=== PATIENT | female | born 1935 | race Caucasian/White ===

== ENCOUNTER 2019-04-29 12:34 | Inpatient (IN) | payer MEDICARE, BC, MEDICAID ==
[2019-04-29] MEDS ORDERED: Albuterol/Ipratropium 3.0-0.5 MG/3 ML Neb Soln NEB PRN (12:59)
--- NOTE | 2019-04-29 13:05 | PCM.HP ---
H&P History of Present Illness - General Date of Service: 04/29/19 Admit Problem/Dx: Admission Diagnosis/Problem Admission Diagnosis/Problem COPD with acute lower respiratory infection Source of Information: Patient, EMS Notes Reviewed History Limitations: Reports: No Limitations - History of Present Illness Initial Comments - Free Text/Narative: Patient has been seen a couple times over the last few weeks for URI. Little improvement noted, tried oral antibiotics, steroids and nebulizer treatments with little improvement. Patient now has nausea and vomiting. Denies fever, has fatigue, has a cough and denies ches pain. Patient has been more short of breath over the last week. Onset of Symptoms: Reports: Gradual Duration of Symptoms: Reports: Getting Worse Improves with: Reports: Immobilization Worsens with: Reports: Movement Associated Symptoms: Reports: cough w sputum, Loss of Appetite, Nausea/Vomiting , Shortness of Breath, Weakness - Related Data Allergies/Adverse Reactions: Allergies Allergy/AdvReac Type Severity Reaction Status Date / Time aspirin Allergy Bleeding Verified 05/04/16 18:58 Home Medications: Home Meds Atenolol [Tenormin] 1 tab PO DAILY 11/05/14 [History] Diltiazem [Cardizem CD] 1 tab PO DAILY 11/05/14 [History] Hydrocodone/Acetaminophen [Hydrocodon-Acetaminophen 5-325] 1 - 2 tab PO TID PRN 11/05/14 [History] Lisinopril 10 mg PO DAILY 11/05/14 [History] Lovastatin 40 mg PO BEDTIME 11/05/14 [History] Folic Acid 1 mg PO DAILY 05/04/16 [History] Metoclopramide [Reglan] 5 mg PO QIDACANDBED 05/04/16 [History] Mv-Mn/FA/Vit K/Lycop/Lut/Zeaxa [Ocuvite Eye + Multi Tablet] 1 cap PO DAILY 05/04 [History] Triamterene/Hydrochlorothiazid [Triamterene-HCTZ 37.5-25 MG] 1 tab PO DAILY [History] Calcium Citrate/Vitamin D3 [Calcium Citrate - Vit D3 Tab] 2 tab PO DAILY [History] Cyanocobalamin (Vitamin B12) [Cyanocobalamin] 1,000 mcg IM Q30D 04/29/19 [ History] Docusate Sodium [Colace] 100 mg PO DAILY 04/29/19 [History] Furosemide [Lasix] 40 mg PO DAILY PRN 04/29/19 [History] Mirabegron [Myrbetriq] 25 mg PO DAILY 04/29/19 [History] Ranitidine [Zantac] 150 mg PO BID 04/29/19 [History] Sertraline [Zoloft] 25 mg PO DAILY 04/29/19 [History] Past Medical History HEENT History: Reports: Allergic Rhinitis, Impaired Vision, Other (See Below) Other HEENT History: Glasses Cardiovascular History: Reports: Cardiomyopathy, Heart Murmur, High Cholesterol , Hypertension, Pulmonary Hypertension, Other (See Below) Other Cardiovascular History: Moderate cardiomegaly, aortic valve stenosis and mitral valve insufficiency by clinical exam, fatty liver by CT scan Respiratory History: Reports: COPD, Pulmonary Fibrosis, Other (See Below) Other Respiratory History: COPD and pulmonary fibrosis by chest x-ray Gastrointestinal History: Reports: Cholelithiasis, Chronic Constipation, Colon Polyp, Diverticulosis, Gastritis, GERD, GI Bleed, Hiatal Hernia, PUD, Other ( See Below) Other Gastrointestinal History: History of recurrent diverticulitis, tubular adenoma of the ascending colon on 04/18/12, upper GI bleed in the secondary to NSAIDs, cholecystectomy as below Genitourinary History: Reports: UTI, 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: Dysfunctional Uterine Bleeding, Fibroids Musculoskeletal History: Reports: Arthritis, Back Pain, Chronic, Neck Pain, Chronic, Osteoarthritis, Osteoporosis, RA, Other (See Below) Other Musculoskeletal History: Severe scoliosis of the lumbar spine Psychiatric History: Reports: Addiction, Anxiety, Depression Endocrine/Metabolic History: Reports: Osteoporosis Hematologic History: Reports: Anemia, Blood Transfusion(s) Immunologic History: Reports: None Oncologic (Cancer) History: Reports: None Dermatologic History: Reports: None - Infectious Disease History Infectious Disease History: Reports: Chicken Pox, Shingles - Past Surgical History HEENT Surgical History: Reports: Oral Surgery GI Surgical History: Reports: Cholecystectomy, Colonoscopy, EGD, Other (See Below) Female Surgical History: Reports: Hysterectomy, Other (See Below) Musculoskeletal Surgical History: Reports: Knee Replacement - Past Imaging History Past Imaging History: Reports: CAT Scan, Mammogram, Stress Testing, Ultrasound Social & Family History - Family History HEENT: Reports: None Cardiac: Reports: CAD, Hypertension, [place], Other (See Below) Other Cardiac Family History: Maternal uncle with possible fatal IN in his 80s, 2 sons Respiratory: Reports: Asthma GI: Reports: None : Reports: Renal Calculus, Other (See Below) Other Family History: Son with urolithiasis OBGYN: Reports: None Musculoskeletal: Reports: None Neurological: Reports: Cerebral Aneurysms, Other (See Below) Other Neurological Family History: Son with fatal cerebral aneurysm at age 41 Psychiatric: Reports: None Endocrine/Metabolic: Reports: Diabetes, type II, Other (See Below) Other Endocrine/Metabolic Family History: 2 sons with AODM Hematologic: Reports: None Immunologic: Reports: None Dermatologic: Reports: None Oncologic: Reports: Breast, Metastatic, Other (See Below) Other Oncologic Family History: Sister with metastatic breast cancer at age 88 - Caffeine Use Caffeine Use: Reports: Coffee (One cup every 3 days), Soda (2 sodas per day), Tea (One cup every 2 weeks). Denies: Energy Drinks - Living Situation & Occupation Living situation: Reports: , , Alone, Other Occupation: Other H&P Review of Systems - Review of Systems: Review Of Systems: See Below General: Reports: Weakness, Fatigue, Decreased Appetite HEENT: Reports: No Symptoms Pulmonary: Reports: Shortness of Breath, Cough, Sputum Cardiovascular: Reports: No Symptoms Gastrointestinal: Reports: Nausea, Vomiting Genitourinary: Reports: Frequency Musculoskeletal: Reports: No Symptoms Skin: Reports: No Symptoms Psychiatric: Reports: No Symptoms Neurological: Reports: No Symptoms Hematologic/Lymphatic: Reports: No Symptoms Immunologic: Reports: No Symptoms Exam - Exam Exam: See Below - Vital Signs Vital Signs: Last Vital Signs Temp 98.3 F 04/29/19 12:52 Pulse 73 04/29/19 12:52 Resp 16 04/29/19 12:52 BP 153/56 H 04/29/19 12:52 Pulse Ox 97 04/29/19 12:52 - Exam Quality Assessment: DVT Prophylaxis General: Alert, Oriented, Cooperative HEENT: Conjunctiva Clear, EACs Clear, EOMI, Hearing Intact, Mucosa Moist & [place] , Normal Nasal Septum, Posterior Pharynx Clear Neck: Supple, Trachea Midline Lungs: Normal Respiratory Effort, Decreased Breath Sounds, Rhonchi Cardiovascular: Regular Rate, Regular Rhythm, Normal S1, Normal S2 GI/Abdominal Exam: Normal Bowel Sounds, Soft, Non-Tender, No Organomegaly, No Distention Extremities: Normal Inspection, Normal Range of Motion, Pedal Edema Peripheral Pulses: 1+: Dorsalis Pedis (L), Dorsalis Pedis (R) Skin: Warm, Dry, Intact Neurological: Cranial Nerves Intact, Reflexes Equal Bilateral Neuro Extensive - Mental Status: Alert, Oriented x3, Normal Mood/Affect, Normal Cognition, Memory Intact Neuro Extensive - Motor, Sensory, Reflexes: CN II-XII Intact, Normal Gait, Normal Reflexes DTR: 1+: Achilles (L), Achilles (R) Psychiatric: Alert, Normal Affect - Problem List (1) COPD (chronic obstructive pulmonary disease) SNOMED Code(s): 90973265 ICD Code: J44.9 - CHRONIC OBSTRUCTIVE PULMONARY DISEASE, UNSPECIFIED Status : Chronic Priority: Medium Current Visit: No Problem Details: No recent fever, cough, or bronchitic-type symptoms. No current nebulizer therapy. Consider PFTs on an outpatient basis Qualifiers: COPD type: unspecified COPD Qualified Code(s): J44.9 - Chronic obstructive pulmonary disease, unspecified (2) Nausea & vomiting SNOMED Code(s): 38534880 ICD Code: R11.2 - NAUSEA WITH VOMITING, UNSPECIFIED Status: Acute Current Visit: Yes Qualifiers: Vomiting type: unspecified (3) Rheumatoid arthritis SNOMED Code(s): 01844081 ICD Code: M06.9 - RHEUMATOID ARTHRITIS, UNSPECIFIED Status: Acute Current Visit: Yes Qualifiers: Rheumatoid arthritis location: multiple sites Problem List Initiated/Reviewed/Updated: Yes Orders Last 24hrs: Active Orders 24 hr Category Date Time Status Patient Status [ADT] Routine ADT 04/29/19 12:49 Ordered Antiembolic Devices [RC] PER UNIT ROUTINE Care 04/29/19 12:54 Ordered Intake and Output [RC] QSHIFT Care 04/29/19 12:51 Ordered May Shower [RC] ASDIRECTED Care 04/29/19 12:49 Ordered Oxygen Therapy [RC] PRN Care 04/29/19 12:49 Ordered Peripheral IV Care [RC] . DIRECTED Care 04/29/19 12:54 Ordered RT Aerosol Therapy [RC] ASDIRECTED Care 04/29/19 12:58 Ordered RT Aerosol Therapy [RC] ASDIRECTED Care 04/29/19 12:59 Ordered Up ad Marizol [RC] ASDIRECTED Care 04/29/19 12:49 Ordered VTE/DVT Education [RC] PER UNIT ROUTINE Care 04/29/19 12:49 Ordered Vital Signs [RC] Q4H Care 04/29/19 12:49 Ordered OT Evaluation and Treatment [CONS] Routine Cons 04/29/19 12:49 Ordered PT Evaluation and Treatment [CONS] Routine Cons 04/29/19 12:49 Ordered Regular Diet [DIET] Diet 04/29/19 Dinner Ordered Abdomen 1V Flat [CR] Routine Exams 04/29/19 12:49 Ordered Chest 2V [CR] Routine Exams 04/29/19 12:49 Ordered C-REACTIVE PROTEIN [CHEM] Routine Lab 04/29/19 12:49 Ordered CBC WITH AUTO DIFF [HEME] Routine Lab 04/29/19 12:49 Ordered COMPREHENSIVE METABOLIC PN,CMP [CHEM] Routine Lab 04/29/19 12:49 Ordered CULTURE URINE [RM] Stat Lab 04/29/19 12:49 Ordered UA W/MICROSCOPIC [URIN] Routine Lab 04/29/19 12:49 Ordered Albuterol/Ipratropium [DuoNeb 3.0-0.5 MG/3 ML] Med 04/29/19 16:00 Ordered 3 ml NEB Q4HRRT Albuterol/Ipratropium [DuoNeb 3.0-0.5 MG/3 ML] Med 04/29/19 12:59 Ordered 3 ml NEB Q4HRRT PRN Enoxaparin [Lovenox] Med 04/30/19 08:00 Ordered 30 mg SUBCUT Q24H Levofloxacin/Dextrose 5%-Water [Levaquin in D5W 500 MG/ Med 04/29/19 14:00 Ordered 100 ML] 500 mg Premix Bag 1 bag IV Q24H Ondansetron [Zofran] Med 04/29/19 12:49 Ordered 4 mg IVPUSH Q6H PRN Pantoprazole [ProTONIX IV] Med 04/30/19 08:00 Ordered 40 mg IVPUSH DAILY Pharmacy Consult [Consult to Pharmacy] Med 04/29/19 13:00 Ordered 1 each .XX ASDIRECTED Sodium Chloride 0.9% [Saline Flush] Med 04/29/19 12:49 Ordered 10 ml FLUSH ASDIRECTED PRN methylPREDNISolone Sod Succ [Solu-MEDROL] Med 04/29/19 13:00 Ordered 40 mg IVPUSH Q12H metroNIDAZOLE/Normal Saline [Flagyl 500 MG in NS 100 ML Med 04/29/19 13:00 Ordered ] 500 mg Premix Bag 1 bag IV Q8H Antiembolic Hose [OM.PC] Per Unit Routine Oth 04/29/19 12:51 Ordered Peripheral IV Insertion Adult [OM.PC] Routine Oth 04/29/19 12:49 Ordered Resuscitation Status Routine Resus Stat 04/29/19 12:49 Ordered Medication Orders Albuterol/Ipratropium (Duoneb 3.0-0.5 Mg/3 Ml) 3 ml NEB Q4HRRT [facility] Enoxaparin Sodium (Lovenox) 30 mg SUBCUT Q24H [facility] Levofloxacin/Dextrose 500 mg/ (Premix) 100 mls @ 100 mls/hr IV Q24H [facility] Metronidazole 500 mg/ Premix 100 mls @ 100 mls/hr IV Q8H [facility] Methylprednisolone Sodium Succinate (Solu-Medrol) 40 mg IVPUSH Q12H [facility] Ondansetron HCl (Zofran) 4 mg IVPUSH Q6H PRN PRN Reason: Nausea/Vomiting Pantoprazole Sodium (Protonix Iv) 40 mg IVPUSH DAILY [facility] Pharmacy Consult (Consult To Pharmacy) 1 each .XX ASDIRECTED [facility] Sodium Chloride (Saline Flush) 10 ml FLUSH ASDIRECTED PRN PRN Reason: Keep Vein Open Assessment/Plan Comment:: 04/29/2019 Patient failed outpatient treatment with oral antibiotics and duoneb treatments. Now with nausea and vomiting, will admit inpatient and start IV antibiotics and IV solumedrol. Recheck labs in the morning. Patient agreed to the plan of care. Discussed with Dr Vela. IV Zofran ordered prn. Xrays ordered of chest and abdomen. Dominique Armijo,WEBSITE PROGRAMMER
[2019-04-29] MEDS ORDERED: methylPREDNISolone Sodium Succinate 40 MG/1 ML SDV IVPUSH SCH (14:00)
[2019-04-29 14:03] LABS: CHLORIDE,CL 93 mmol/L (98-107); SODIUM,NA 129 mmol/L (136-145)
[2019-04-29] MEDS: Ondansetron 4 MG/2 ML SDV IVPUSH PRN (14:16)
[2019-04-29] MEDS: metroNIDAZOLE/Normal Saline 500 MG in Premix Bag 1 BAG IV SCH ×2 (14:16→21:59)
[2019-04-29] MEDS: Levofloxacin/Dextrose 5%-Water 500 MG in Premix Bag 1 BAG IV SCH (15:38)
[2019-04-29] MEDS: Sodium Chloride 0.9% 10 ML Syringe FLUSH PRN ×2 (15:41→22:00)
[2019-04-29] MEDS ORDERED: Albuterol/Ipratropium 3.0-0.5 MG/3 ML Neb Soln NEB SCH (16:00)
[2019-04-29] MEDS: Acetaminophen 325 MG Tab PO PRN ×2 (16:12→23:21)
[2019-04-29] MEDS: Acetaminophen/HYDROcodone 325-5 MG Tab PO SCH ×2 (17:05→20:13)
[2019-04-29] MEDS ORDERED: hydrOXYzine HCl 50 MG/ML SDV IM ONE (17:20)
[2019-04-29] MEDS ORDERED: Folic Acid 1 MG Tab PO SCH (20:00)
[2019-04-29] MEDS: Brimonidine 0.2% Ophth Soln 5 ML Bottle EYEBOTH SCH (20:13)
[2019-04-29] MEDS: Timolol Maleate 0.5% Ophth Soln 5 ML Bottle EYEBOTH SCH (20:13)
[2019-04-29] MEDS: Albuterol/Ipratropium 3.0-0.5 MG/3 ML Neb Soln NEB SCH (20:14)
[2019-04-29] MEDS: methylPREDNISolone Sodium Succinate 40 MG/1 ML SDV IVPUSH SCH (20:14)
[2019-04-29] MEDS: Sodium Chloride 0.9% 10 ML Syringe FLUSH SCH (20:14)
[2019-04-29] MEDS ORDERED: hydrOXYzine HCl 50 MG/ML SDV IM PRN (21:00)
[2019-04-30] MEDS: Temazepam 15 MG Cap PO PRN ×3 (00:05→23:25)
[2019-04-30] MEDS: Sodium Chloride 0.9% 10 ML Syringe FLUSH PRN ×2 (05:37→06:34)
[2019-04-30] MEDS: metroNIDAZOLE/Normal Saline 500 MG in Premix Bag 1 BAG IV SCH ×3 (05:37→21:08)
[2019-04-30] MEDS: Acetaminophen 325 MG Tab PO PRN (05:58)
[2019-04-30] MEDS: Ondansetron 4 MG/2 ML SDV IVPUSH PRN (06:34)
[2019-04-30 07:24] LABS: BASE EXCESS VENOUS -1 mmol/L ((-2)-3); BICARBONATE,VENOUS 23 mmol/L (23-28); O2 DELIVERY DEVICE ROOM AIR; O2 SATURATION VENOUS 92 %; PCO2 VENOUS 36 mmHG (41-51); PH,VENOUS 7.42 (7.31-7.41); PO2 VENOUS 62 mmHG
[2019-04-30 07:59] LABS: CHLORIDE,CL 91 mmol/L (98-107); SODIUM,NA 126 mmol/L (136-145)
[2019-04-30] MEDS ORDERED: Lutein/Minerals/Vitamin C/Vitamin E Acetate Cap PO SCH (08:00)
[2019-04-30] MEDS ORDERED: Sertraline 25 MG Tab PO SCH (08:00)
[2019-04-30] MEDS ORDERED: guaiFENesin 600 MG Tab.ER PO SCH (08:00)
[2019-04-30] MEDS ORDERED: Enoxaparin 30 MG/0.3 ML Syringe SUBCUT SCH (08:00)
[2019-04-30] MEDS: Timolol Maleate 0.5% Ophth Soln 5 ML Bottle EYEBOTH SCH ×2 (09:06→21:09)
[2019-04-30] MEDS: Brimonidine 0.2% Ophth Soln 5 ML Bottle EYEBOTH SCH ×2 (09:06→21:08)
[2019-04-30] MEDS: Metoclopramide 10 MG Tab PO SCH (09:08)
[2019-04-30] MEDS: Diltiazem 120 MG Cap.CD PO SCH (09:08)
[2019-04-30] MEDS: Hydrochlorothiazide/Triamterene 50-75 MG Tab PO SCH (09:10)
[2019-04-30] MEDS: Lisinopril 10 MG Tab PO SCH (09:10)
[2019-04-30] MEDS: Atenolol 25 MG Tab PO SCH (09:11)
[2019-04-30] MEDS: Acetaminophen/HYDROcodone 325-5 MG Tab PO SCH ×4 (09:12→21:07)
[2019-04-30] MEDS: Pantoprazole 40 MG Vial IVPUSH SCH (09:14)
[2019-04-30] MEDS: methylPREDNISolone Sodium Succinate 40 MG/1 ML SDV IVPUSH SCH ×2 (09:14→21:08)
[2019-04-30] MEDS: Albuterol/Ipratropium 3.0-0.5 MG/3 ML Neb Soln NEB SCH ×4 (09:14→21:09)
[2019-04-30] MEDS: Docusate Sodium 100 MG Cap PO SCH (09:16)
[2019-04-30] MEDS: Sodium Chloride 0.9% 10 ML Syringe FLUSH SCH ×2 (09:17→21:08)
[2019-04-30] MEDS: Sodium Chloride 0.9% 1,000 ML IV SCH (10:18)
[2019-04-30] MEDS: Levofloxacin/Dextrose 5%-Water 500 MG in Premix Bag 1 BAG IV SCH (16:10)
--- NOTE | 2019-04-30 22:15 | PCM.PN ---
- General Info Date of Service: 04/30/19 Admission Dx/Problem (Free Text): Admission Diagnosis/Problem Admission Diagnosis/Problem COPD with acute lower respiratory infection Functional Status: Reports: Tolerating Diet, Ambulating - Review of Systems General: Reports: Weakness Pulmonary: Reports: Shortness of Breath (improving) Cardiovascular: Reports: No Symptoms Gastrointestinal: Reports: Decreased Appetite Musculoskeletal: Reports: Back Pain (chronic) Skin: Reports: No Symptoms Neurological: Reports: Confusion, Weakness Psychiatric: Reports: Confusion - Patient Data Vitals - Most Recent: Last Vital Signs Temp 98.7 F 04/30/19 20:00 Pulse 71 04/30/19 20:00 Resp 17 04/30/19 20:00 BP 153/69 H 04/30/19 20:00 Pulse Ox 95 04/30/19 20:00 Weight - Most Recent: 205 lb 11.2 oz I&O - Last 24 Hours: Intake & Output 04/30/19 04/30/19 04/30/19 06:59 14:59 22:59 Intake Total 500 200 634 Output Total 550 200 200 Balance -50 0 434 Lab Results Last 24 Hours: Laboratory Results - last 24 hr 04/30/19 04/30/19 04/30/19 Range/Units 07:00 07:00 07:00 WBC 6.8 (4.0-10.2) K/uL RBC 3.67 L (3.77-5.09) M/uL Hgb 12.4 (11.7-15.5) g/dL Hct 34.7 (34.0-46.0) % MCV 94.6 (84.0-98.0) fL MCH 33.8 H (28.2-33.3) pg MCHC 35.7 (31.7-36.0) g/dL RDW 11.8 (11.2-14.1) % Plt Count 211 (150-350) K/uL Neut % (Auto) 71.3 (45.0-80.0) % Lymph % (Auto) 18.5 (10.0-50.0) % [place] % (Auto) 9.6 (2.0-14.0) % Eos % (Auto) 0.0 (0.0-5.0) % Baso % (Auto) 0.6 (0.0-2.0) % Neut # (Auto) 4.81 (1.40-7.00) K/uL Lymph # (Auto) 1.25 (0.50-3.50) K/uL [place] # (Auto) 0.65 (0.00-1.00) K/uL Eos # (Auto) 0.00 (0.00-0.50) K/uL Baso # (Auto) 0.04 (0.00-0.20) K/uL VBG pH 7.42 H (7.31-7.41) VBG pCO2 36 L (41-51) mmHG VBG pO2 62 mmHG VBG HCO3 23 (23-28) mmol/L VBG Total CO2 24 mmol/L VBG O2 Saturation 92 % VBG Base Excess -1 ((-2)-3) mmol/L O2 Delivery Device Room air Sodium 126 L (136-145) mmol/L Potassium 4.1 (3.5-5.1) mmol/L Chloride 91 L (98-107) mmol/L Carbon Dioxide 21.5 (21.0-32.0) mmol/L BUN 16 (7-18) mg/dL Creatinine 0.76 (0.51-1.17) mg/dL Est Cr Clr Drug Dosing 38.87 mL/min Estimated GFR (MDRD) > 60 mL/min Glucose 174 H (74-106) mg/dL Calcium 8.9 (8.5-10.1) mg/dL Total Bilirubin 0.5 (0.2-1.0) mg/dL AST 22 (15-37) U/L ALT 18 (12-78) U/L Alkaline Phosphatase 66 (46-116) IU/L C-Reactive Protein 0.0 (<=0.9) mg/dL Total Protein 6.9 (6.4-8.2) g/dL Albumin 2.9 L (3.4-5.0) g/dL Tim Results Last 24 Hours: Microbiology 04/29/19 15:30 Urine Culture - Final Urine, Bladder MIXED JOE SUGGESTIVE OF CONTAMINATION. Med Orders - Current: Current Medications Acetaminophen (Tylenol) 650 mg PO Q3H PRN PRN Reason: Headache/Pain Last Admin: 04/30/19 05:58 Dose: 650 mg Hydrocodone Bitart/Acetaminophen (Cotati 325-5 Mg) 1 tab PO QID@08,12,18,21 [facility] Last Admin: 04/30/19 21:07 Dose: 1 tab Albuterol/Ipratropium (Duoneb 3.0-0.5 Mg/3 Ml) 3 ml NEB Q4HRRT PRN PRN Reason: Dyspnea Albuterol/Ipratropium (Duoneb 3.0-0.5 Mg/3 Ml) 3 ml NEB QIDRT [facility] Last Admin: 04/30/19 21:09 Dose: 3 ml Atenolol (Tenormin) 25 mg PO DAILY [facility] Last Admin: 04/30/19 09:11 Dose: 25 mg Brimonidine Tartrate (Alphagan 0.2% Ophth Soln) 0 ml EYEBOTH Q12HR [facility] Last Admin: 04/30/19 21:08 Dose: 1 drop Diltiazem HCl (Cardizem Cd) 240 mg PO DAILY [facility] Last Admin: 04/30/19 09:08 Dose: 240 mg Docusate Sodium (Colace) 100 mg PO DAILY [facility] Last Admin: 04/30/19 09:16 Dose: 100 mg Enoxaparin Sodium (Lovenox) 30 mg SUBCUT Q24H [facility] Last Admin: 04/30/19 09:14 Dose: 30 mg Guaifenesin (Mucinex) 600 mg PO DAILY PRN PRN Reason: Cough Hydroxyzine HCl (Vistaril) 25 mg IM Q4H PRN PRN Reason: Nausea/Vomiting Levofloxacin/Dextrose 500 mg/ (Premix) 100 mls @ 100 mls/hr IV Q24H [facility] Last Admin: 04/30/19 16:10 Dose: 100 mls/hr Metronidazole 500 mg/ Premix 100 mls @ 100 mls/hr IV Q8H [facility] Last Admin: 04/30/19 21:08 Dose: 100 mls/hr Sodium Chloride (Normal Saline) 1,000 mls @ 50 mls/hr IV ASDIRECTED [facility] Last Admin: 04/30/19 10:18 Dose: 50 mls/hr Lisinopril (Prinivil) 10 mg PO DAILY [facility] Last Admin: 04/30/19 09:10 Dose: 10 mg Methylprednisolone Sodium Succinate (Solu-Medrol) 40 mg IVPUSH Q12HR [facility] Last Admin: 04/30/19 21:08 Dose: 40 mg Metoclopramide HCl (Reglan) 5 mg PO DAILY [facility] Last Admin: 04/30/19 09:08 Dose: 5 mg Ondansetron HCl (Zofran) 4 mg IVPUSH Q6H PRN PRN Reason: Nausea/Vomiting Last Admin: 04/30/19 06:34 Dose: 4 mg Pantoprazole Sodium (Protonix Iv) 40 mg IVPUSH DAILY [facility] Last Admin: 04/30/19 09:14 Dose: 40 mg Pharmacy Consult (Consult To Pharmacy) 1 each .XX ASDIRECTED [facility] Sodium Chloride (Saline Flush) 10 ml FLUSH ASDIRECTED PRN PRN Reason: Keep Vein Open Last Admin: 04/30/19 06:34 Dose: 10 ml Sodium Chloride (Saline Flush) 10 ml FLUSH Q12HR [facility] Last Admin: 04/30/19 21:08 Dose: 10 ml Temazepam (Restoril) 15 mg PO BEDTIME PRN PRN Reason: Insomnia Last Admin: 04/30/19 01:55 Dose: 15 mg Timolol Maleate (Timoptic 0.5% Ophth Soln) 0 ml EYEBOTH Q12HR [facility] Last Admin: 04/30/19 21:09 Dose: 1 drop Triamterene/HCTZ (Maxzide 50-75 Mg) 0.5 each PO DAILY [facility] Last Admin: 04/30/19 09:10 Dose: 0.5 each Discontinued Medications Albuterol/Ipratropium (Duoneb 3.0-0.5 Mg/3 Ml) 3 ml NEB Q4HRRT [facility] Last Admin: 04/29/19 15:38 Dose: 3 ml Folic Acid (Folic Acid) 1 mg PO BEDTIME [facility] Guaifenesin (Mucinex) 600 mg PO DAILY [facility] Hydroxyzine HCl (Vistaril) 25 mg IM ONETIME ONE Stop: 04/29/19 17:21 Last Admin: 04/29/19 17:35 Dose: 25 mg Lovastatin (Mevacor) 40 mg PO BEDTIME [facility] Methylprednisolone Sodium Succinate (Solu-Medrol) 40 mg IVPUSH Q12H [facility] Last Admin: 04/29/19 14:16 Dose: 40 mg Sertraline HCl (Zoloft) 25 mg PO DAILY [facility] Last Admin: 04/30/19 10:10 Dose: Not Given Vit C/Vit E/Zinc/Copper/Lutein (Ocuvite Lutein) 1 each PO DAILY [facility] - Exam Quality Assessment: DVT Prophylaxis (will stop due to Hx of significant GI bleed and also on steroids) General: Alert, Cooperative, No Acute Distress HEENT: Mucous Membr. Moist/[place] Neck: Trachea Midline, No JVD Lungs: Normal Respiratory Effort, Decreased Breath Sounds Cardiovascular: Regular Rate, Regular Rhythm, Murmurs GI/Abdominal Exam: Soft, Non-Tender, No Distention (Female) Exam: Deferred Back Exam: Decreased Range of Motion, Other (scoliosis) Extremities: Non-Tender Skin: Warm, Dry, Intact Neurological: No New Focal Deficit Psy/Mental Status: Alert, Normal Affect, Normal Mood - Problem List & Annotations (1) Chronic obstructive pulmonary disease with (acute) exacerbation SNOMED Code(s): 737931355 Code(s): J44.1 - CHRONIC OBSTRUCTIVE PULMONARY DISEASE W (ACUTE) EXACERBATION Status: Acute Priority: High Current Visit: Yes (2) Nausea & vomiting SNOMED Code(s): 28326519 Code(s): R11.2 - NAUSEA WITH VOMITING, UNSPECIFIED Status: Acute Current Visit: Yes Qualifiers: Vomiting type: cyclical vomiting Vomiting Intractability: intractable Qualified Code(s): G43.A1 - Cyclical vomiting, intractable (3) Rheumatoid arthritis SNOMED Code(s): 84388224 Code(s): M06.9 - RHEUMATOID ARTHRITIS, UNSPECIFIED Status: Acute Current Visit: Yes Qualifiers: Rheumatoid arthritis location: multiple sites Rheumatoid factor presence: with rheumatoid factor Qualified Code(s): M05.79 - Rheumatoid arthritis with rheumatoid factor of multiple sites without organ or systems involvement (4) Abdominal pain SNOMED Code(s): 71265199 Code(s): R10.9 - UNSPECIFIED ABDOMINAL PAIN Status: Acute Priority: High Current Visit: No Onset Date: 11/05/14 (5) CHF (congestive heart failure) SNOMED Code(s): 22192889 Code(s): I50.9 - HEART FAILURE, UNSPECIFIED Status: Acute Priority: High Current Visit: No Onset Date: 05/04/16 Qualifiers: Qualified Code(s): I50.9 - Heart failure, unspecified (6) HTN, Benign hypertension SNOMED Code(s): 41954888 Code(s): I10 - ESSENTIAL (PRIMARY) HYPERTENSION Status: Acute Priority: Medium Current Visit: No Annotation/Comment:: Blood pressures under relatively good control in the emergency room (7) Heart disease SNOMED Code(s): 48155032 Code(s): I51.9 - HEART DISEASE, UNSPECIFIED Status: Acute Priority: Medium Current Visit: No (8) Mixed anxiety depressive disorder SNOMED Code(s): 702728597 Code(s): F41.8 - OTHER SPECIFIED ANXIETY DISORDERS Status: Acute Priority : Medium Current Visit: No (9) COPD (chronic obstructive pulmonary disease) SNOMED Code(s): 87182904 Code(s): J44.9 - CHRONIC OBSTRUCTIVE PULMONARY DISEASE, UNSPECIFIED Status : Chronic Priority: Medium Current Visit: No Qualifiers: COPD type: COPD with acute exacerbation Qualified Code(s): J44.1 - Chronic obstructive pulmonary disease with (acute) exacerbation (10) Hyperlipidemia SNOMED Code(s): 94293170 Code(s): E78.5 - HYPERLIPIDEMIA, UNSPECIFIED Status: Chronic Priority: Medium Current Visit: No Qualifiers: Hyperlipidemia type: unspecified Qualified Code(s): E78.5 - Hyperlipidemia , unspecified (11) Hypertension SNOMED Code(s): 24155067 Code(s): I10 - ESSENTIAL (PRIMARY) HYPERTENSION Status: Chronic Priority : Medium Current Visit: No Qualifiers: Hypertension type: essential hypertension Qualified Code(s): I10 - Essential (primary) hypertension (12) Peptic reflux disease SNOMED Code(s): 296653983 Code(s): K21.9 - GASTRO-ESOPHAGEAL REFLUX DISEASE WITHOUT ESOPHAGITIS Status: Chronic Priority: Medium Current Visit: No - Problem List Review Problem List Initiated/Reviewed/Updated: Yes - My Orders Last 24 Hours: My Active Orders 04/29/19 23:27 Cooling Warming Measures [RC] ASDIRECTED K Pad [Heat Therapy] [OM.PC] Routine 04/29/19 23:42 Temazepam [Restoril] 15 mg PO BEDTIME PRN 04/30/19 07:00 MYCOPLASMA IGM RAPID [MREF] Routine 05/01/19 08:00 methylPREDNISolone Sod Succ [Solu-MEDROL] 40 mg IVPUSH DAILY - Plan Plan:: 04/29/2019 Patient failed outpatient treatment with oral antibiotics and duoneb treatments. Now with nausea and vomiting, will admit inpatient and start IV antibiotics and IV solumedrol. Recheck labs in the morning. Patient agreed to the plan of care. Discussed with Dr Vela. IV Zofran ordered prn. Xrays ordered of chest and abdomen. Dominique Armijo,VERITO 04/30/19 Dane Mendoza MD Feels a little bit better today. Less short of breath. Some mental confusion last night. Did not vomit today.
[2019-05-01] MEDS: Acetaminophen 325 MG Tab PO PRN (04:19)
[2019-05-01] MEDS: metroNIDAZOLE/Normal Saline 500 MG in Premix Bag 1 BAG IV SCH ×3 (05:34→21:02)
[2019-05-01] MEDS: Hydrochlorothiazide/Triamterene 50-75 MG Tab PO SCH (07:41)
[2019-05-01] MEDS: Metoclopramide 10 MG Tab PO SCH (07:42)
[2019-05-01] MEDS: Lisinopril 10 MG Tab PO SCH (07:42)
[2019-05-01] MEDS: Diltiazem 120 MG Cap.CD PO SCH (07:43)
[2019-05-01] MEDS: Atenolol 25 MG Tab PO SCH (07:43)
[2019-05-01] MEDS: Acetaminophen/HYDROcodone 325-5 MG Tab PO SCH ×4 (07:43→20:53)
[2019-05-01] MEDS: Docusate Sodium 100 MG Cap PO SCH (07:44)
[2019-05-01] MEDS: methylPREDNISolone Sodium Succinate 40 MG/1 ML SDV IVPUSH SCH (07:44)
[2019-05-01] MEDS: Albuterol/Ipratropium 3.0-0.5 MG/3 ML Neb Soln NEB SCH ×4 (07:44→20:55)
[2019-05-01] MEDS: Pantoprazole 40 MG Vial IVPUSH SCH (07:44)
[2019-05-01] MEDS: Sodium Chloride 0.9% 10 ML Syringe FLUSH SCH ×2 (07:45→20:56)
[2019-05-01] MEDS: Brimonidine 0.2% Ophth Soln 5 ML Bottle EYEBOTH SCH ×2 (07:49→20:55)
[2019-05-01] MEDS: Timolol Maleate 0.5% Ophth Soln 5 ML Bottle EYEBOTH SCH ×2 (07:49→20:56)
[2019-05-01 07:54] LABS: CHLORIDE,CL 94 mmol/L (98-107); SODIUM,NA 129 mmol/L (136-145)
[2019-05-01] MEDS: Sodium Chloride 0.9% 1,000 ML IV SCH (11:02)
--- NOTE | 2019-05-01 15:48 | PCM.PN ---
- General Info Date of Service: 05/01/19 Admission Dx/Problem (Free Text): Admission Diagnosis/Problem Admission Diagnosis/Problem COPD with acute lower respiratory infection Functional Status: Reports: Tolerating Diet, Ambulating - Review of Systems General: Reports: No Symptoms HEENT: Reports: No Symptoms Pulmonary: Reports: Shortness of Breath (improved), Cough (improved) Cardiovascular: Reports: No Symptoms Gastrointestinal: Reports: Constipation Genitourinary: Reports: No Symptoms Musculoskeletal: Reports: Back Pain (chronic) Skin: Reports: No Symptoms Neurological: Reports: No Symptoms Psychiatric: Reports: No Symptoms - Patient Data Vitals - Most Recent: Last Vital Signs Temp 98.2 F 05/01/19 11:32 Pulse 64 05/01/19 11:32 Resp 14 05/01/19 11:32 BP 150/62 H 05/01/19 11:32 Pulse Ox 96 05/01/19 11:32 Weight - Most Recent: 205 lb 11.2 oz I&O - Last 24 Hours: Intake & Output 05/01/19 05/01/19 05/01/19 06:59 14:59 22:59 Intake Total 510 Output Total 950 500 Balance -950 10 Lab Results Last 24 Hours: Laboratory Results - last 24 hr 05/01/19 05/01/19 Range/Units 06:53 06:53 WBC 9.6 (4.0-10.2) K/uL RBC 3.80 (3.77-5.09) M/uL Hgb 12.7 (11.7-15.5) g/dL Hct 35.7 (34.0-46.0) % MCV 93.9 (84.0-98.0) fL MCH 33.4 H (28.2-33.3) pg MCHC 35.6 (31.7-36.0) g/dL RDW 11.8 (11.2-14.1) % Plt Count 235 (150-350) K/uL Neut % (Auto) 67.3 (45.0-80.0) % Lymph % (Auto) 12.3 (10.0-50.0) % [place] % (Auto) 19.5 H (2.0-14.0) % Eos % (Auto) 0.0 (0.0-5.0) % Baso % (Auto) 0.9 (0.0-2.0) % Neut # (Auto) 6.43 (1.40-7.00) K/uL Lymph # (Auto) 1.18 (0.50-3.50) K/uL [place] # (Auto) 1.87 H (0.00-1.00) K/uL Eos # (Auto) 0.00 (0.00-0.50) K/uL Baso # (Auto) 0.09 (0.00-0.20) K/uL Sodium 129 L (136-145) mmol/L Potassium 4.0 (3.5-5.1) mmol/L Chloride 94 L (98-107) mmol/L Carbon Dioxide 25.1 (21.0-32.0) mmol/L BUN 21 H (7-18) mg/dL Creatinine 0.73 (0.51-1.17) mg/dL Est Cr Clr Drug Dosing 40.47 mL/min Estimated GFR (MDRD) > 60 mL/min Glucose 149 H (74-106) mg/dL Calcium 8.6 (8.5-10.1) mg/dL Total Bilirubin 0.5 (0.2-1.0) mg/dL AST 32 (15-37) U/L ALT 28 (12-78) U/L Alkaline Phosphatase 61 (46-116) IU/L C-Reactive Protein < 0.2 (<=0.9) mg/dL Total Protein 6.8 (6.4-8.2) g/dL Albumin 3.0 L (3.4-5.0) g/dL Itm Results Last 24 Hours: Microbiology 04/30/19 07:00 Mycoplasma Serology - Final Blood 04/29/19 15:30 Urine Culture - Final Urine, Bladder MIXED JOE SUGGESTIVE OF CONTAMINATION. Med Orders - Current: Current Medications Acetaminophen (Tylenol) 650 mg PO Q3H PRN PRN Reason: Headache/Pain Last Admin: 05/01/19 04:19 Dose: 650 mg Hydrocodone Bitart/Acetaminophen ([place] 325-5 Mg) 1 tab PO QID@08,12,18,21 [facility] Last Admin: 05/01/19 11:02 Dose: 1 tab Albuterol/Ipratropium (Duoneb 3.0-0.5 Mg/3 Ml) 3 ml NEB Q4HRRT PRN PRN Reason: Dyspnea Albuterol/Ipratropium (Duoneb 3.0-0.5 Mg/3 Ml) 3 ml NEB QIDRT [facility] Last Admin: 05/01/19 11:02 Dose: 3 ml Atenolol (Tenormin) 25 mg PO DAILY [facility] Last Admin: 05/01/19 07:43 Dose: 25 mg Azithromycin (Zithromax) 500 mg PO DAILY [facility] Brimonidine Tartrate (Alphagan 0.2% Ophth Soln) 0 ml EYEBOTH Q12HR [facility] Last Admin: 05/01/19 07:49 Dose: 1 drop Diltiazem HCl (Cardizem Cd) 240 mg PO DAILY [facility] Last Admin: 05/01/19 07:43 Dose: 240 mg Docusate Sodium (Colace) 100 mg PO DAILY [facility] Last Admin: 05/01/19 07:44 Dose: 100 mg Guaifenesin (Mucinex) 600 mg PO DAILY PRN PRN Reason: Cough Hydroxyzine HCl (Vistaril) 25 mg IM Q4H PRN PRN Reason: Nausea/Vomiting Metronidazole 500 mg/ Premix 100 mls @ 100 mls/hr IV Q8H [facility] Last Admin: 05/01/19 14:15 Dose: 100 mls/hr Azithromycin 500 mg/ Sodium (Chloride) 250 mls @ 250 mls/hr IV ONETIME ONE Stop: 05/01/19 16:59 Azithromycin 500 mg/ Sodium (Chloride) 250 mls @ 250 mls/hr IV DAILY@1200 [facility] Stop: 05/03/19 12:59 Lisinopril (Prinivil) 10 mg PO DAILY [facility] Last Admin: 05/01/19 07:42 Dose: 10 mg Methylprednisolone Sodium Succinate (Solu-Medrol) 40 mg IVPUSH DAILY [facility] Last Admin: 05/01/19 07:44 Dose: 40 mg Metoclopramide HCl (Reglan) 5 mg PO DAILY [facility] Last Admin: 05/01/19 07:42 Dose: 5 mg Ondansetron HCl (Zofran) 4 mg IVPUSH Q6H PRN PRN Reason: Nausea/Vomiting Last Admin: 04/30/19 06:34 Dose: 4 mg Pantoprazole Sodium (Protonix Iv) 40 mg IVPUSH DAILY [facility] Last Admin: 05/01/19 07:44 Dose: 40 mg Pharmacy Consult (Consult To Pharmacy) 1 each .XX ASDIRECTED [facility] Sodium Chloride (Saline Flush) 10 ml FLUSH ASDIRECTED PRN PRN Reason: Keep Vein Open Last Admin: 04/30/19 06:34 Dose: 10 ml Sodium Chloride (Saline Flush) 10 ml FLUSH Q12HR [facility] Last Admin: 05/01/19 07:45 Dose: 10 ml Temazepam (Restoril) 15 mg PO BEDTIME PRN PRN Reason: Insomnia Last Admin: 04/30/19 23:25 Dose: 15 mg Timolol Maleate (Timoptic 0.5% Ophth Soln) 0 ml EYEBOTH Q12HR [facility] Last Admin: 05/01/19 07:49 Dose: 1 drop Triamterene/HCTZ (Maxzide 50-75 Mg) 0.5 each PO DAILY [facility] Last Admin: 05/01/19 07:41 Dose: 0.5 each Discontinued Medications Albuterol/Ipratropium (Duoneb 3.0-0.5 Mg/3 Ml) 3 ml NEB Q4HRRT [facility] Last Admin: 04/29/19 15:38 Dose: 3 ml Azithromycin (Zithromax) 500 mg PO DAILY [facility] Enoxaparin Sodium (Lovenox) 30 mg SUBCUT Q24H [facility] Last Admin: 04/30/19 09:14 Dose: 30 mg Folic Acid (Folic Acid) 1 mg PO BEDTIME [facility] Guaifenesin (Mucinex) 600 mg PO DAILY [facility] Hydroxyzine HCl (Vistaril) 25 mg IM ONETIME ONE Stop: 04/29/19 17:21 Last Admin: 04/29/19 17:35 Dose: 25 mg Levofloxacin/Dextrose 500 mg/ (Premix) 100 mls @ 100 mls/hr IV Q24H [facility] Last Admin: 04/30/19 16:10 Dose: 100 mls/hr Sodium Chloride (Normal Saline) 1,000 mls @ 50 mls/hr IV ASDIRECTED [facility] Last Admin: 05/01/19 11:02 Dose: 50 mls/hr Azithromycin 500 mg/ Sodium (Chloride) 250 mls @ 250 mls/hr IV DAILY [facility] Stop: 05/04/19 08:59 Lovastatin (Mevacor) 40 mg PO BEDTIME [facility] Methylprednisolone Sodium Succinate (Solu-Medrol) 40 mg IVPUSH Q12H [facility] Last Admin: 04/29/19 14:16 Dose: 40 mg Methylprednisolone Sodium Succinate (Solu-Medrol) 40 mg IVPUSH Q12HR [facility] Last Admin: 04/30/19 21:08 Dose: 40 mg Sertraline HCl (Zoloft) 25 mg PO DAILY [facility] Last Admin: 04/30/19 10:10 Dose: Not Given Vit C/Vit E/Zinc/Copper/Lutein (Ocuvite Lutein) 1 each PO DAILY [facility] - Exam General: Alert, Cooperative, No Acute Distress HEENT: Mucous Membr. Moist/[place] Neck: Trachea Midline, No JVD Lungs: Normal Respiratory Effort, Decreased Breath Sounds Cardiovascular: Regular Rate, Regular Rhythm GI/Abdominal Exam: Soft, Non-Tender, No Distention (Female) Exam: Deferred Back Exam: Other (scoliosis) Extremities: Normal Inspection, Non-Tender Skin: Warm, Dry, Intact Neurological: No New Focal Deficit Psy/Mental Status: Alert, Normal Affect, Normal Mood - Problem List & Annotations (1) Chronic obstructive pulmonary disease with (acute) exacerbation SNOMED Code(s): 563621491 Code(s): J44.1 - CHRONIC OBSTRUCTIVE PULMONARY DISEASE W (ACUTE) EXACERBATION Status: Acute Priority: High Current Visit: Yes (2) Nausea & vomiting SNOMED Code(s): 73315135 Code(s): R11.2 - NAUSEA WITH VOMITING, UNSPECIFIED Status: Acute Current Visit: Yes Qualifiers: Vomiting type: cyclical vomiting Vomiting Intractability: intractable Qualified Code(s): G43.A1 - Cyclical vomiting, intractable (3) Rheumatoid arthritis SNOMED Code(s): 73511417 Code(s): M06.9 - RHEUMATOID ARTHRITIS, UNSPECIFIED Status: Acute Current Visit: Yes Qualifiers: Rheumatoid arthritis location: multiple sites Rheumatoid factor presence: with rheumatoid factor Qualified Code(s): M05.79 - Rheumatoid arthritis with rheumatoid factor of multiple sites without organ or systems involvement (4) Abdominal pain SNOMED Code(s): 28981667 Code(s): R10.9 - UNSPECIFIED ABDOMINAL PAIN Status: Acute Priority: High Current Visit: No Onset Date: 11/05/14 (5) CHF (congestive heart failure) SNOMED Code(s): 34072695 Code(s): I50.9 - HEART FAILURE, UNSPECIFIED Status: Acute Priority: High Current Visit: No Onset Date: 05/04/16 Qualifiers: Qualified Code(s): I50.9 - Heart failure, unspecified (6) HTN, Benign hypertension SNOMED Code(s): 42473434 Code(s): I10 - ESSENTIAL (PRIMARY) HYPERTENSION Status: Acute Priority: Medium Current Visit: No Annotation/Comment:: Blood pressures under relatively good control in the emergency room (7) Heart disease SNOMED Code(s): 06110989 Code(s): I51.9 - HEART DISEASE, UNSPECIFIED Status: Acute Priority: Medium Current Visit: No (8) Mixed anxiety depressive disorder SNOMED Code(s): 506786294 Code(s): F41.8 - OTHER SPECIFIED ANXIETY DISORDERS Status: Acute Priority : Medium Current Visit: No (9) COPD (chronic obstructive pulmonary disease) SNOMED Code(s): 05398145 Code(s): J44.9 - CHRONIC OBSTRUCTIVE PULMONARY DISEASE, UNSPECIFIED Status : Chronic Priority: Medium Current Visit: No Qualifiers: COPD type: COPD with acute exacerbation Qualified Code(s): J44.1 - Chronic obstructive pulmonary disease with (acute) exacerbation (10) Hyperlipidemia SNOMED Code(s): 80274254 Code(s): E78.5 - HYPERLIPIDEMIA, UNSPECIFIED Status: Chronic Priority: Medium Current Visit: No Qualifiers: Hyperlipidemia type: unspecified Qualified Code(s): E78.5 - Hyperlipidemia , unspecified (11) Hypertension SNOMED Code(s): 39239199 Code(s): I10 - ESSENTIAL (PRIMARY) HYPERTENSION Status: Chronic Priority : Medium Current Visit: No Qualifiers: Hypertension type: essential hypertension Qualified Code(s): I10 - Essential (primary) hypertension (12) Peptic reflux disease SNOMED Code(s): 027635024 Code(s): K21.9 - GASTRO-ESOPHAGEAL REFLUX DISEASE WITHOUT ESOPHAGITIS Status: Chronic Priority: Medium Current Visit: No (13) Mycoplasma pneumoniae pneumonia SNOMED Code(s): 00935941 Code(s): J15.7 - PNEUMONIA DUE TO MYCOPLASMA PNEUMONIAE Status: Acute Current Visit: Yes Qualifiers: Laterality: bilateral Lung location: lower lobe of lung Qualified Code(s) : J15.7 - Pneumonia due to Mycoplasma pneumoniae - Problem List Review Problem List Initiated/Reviewed/Updated: Yes - My Orders Last 24 Hours: My Active Orders 05/01/19 08:00 methylPREDNISolone Sod Succ [Solu-MEDROL] 40 mg IVPUSH DAILY 05/01/19 16:00 Azithromycin [Zithromax] 500 mg Sodium Chloride 0.9% [Normal Saline] 250 ml IV ONETIME 05/02/19 12:00 Azithromycin [Zithromax] 500 mg Sodium Chloride 0.9% [Normal Saline] 250 ml IV DAILY@1200 05/04/19 08:00 Azithromycin [Zithromax] 500 mg PO DAILY - Plan Plan:: 04/29/2019 Patient failed outpatient treatment with oral antibiotics and duoneb treatments. Now with nausea and vomiting, will admit inpatient and start IV antibiotics and IV solumedrol. Recheck labs in the morning. Patient agreed to the plan of care. Discussed with Dr Vela. IV Zofran ordered prn. Xrays ordered of chest and abdomen. Dominique Armijo,MANAGER BALANCE 04/30/19 Dane Mendoza MD Feels a little bit better today. Less short of breath. Some mental confusion last night. Did not vomit today. 05/01/19 Dane Mendoza MD Continues to improve. Mycoplasma +. Will change antibiotics to zithromax. Sodium stabilizing off zoloft. Adequate oral intake. Will d/c maintenance IV fluid.
[2019-05-01] MEDS: Levofloxacin/Dextrose 5%-Water 500 MG in Premix Bag 1 BAG IV SCH (15:53)
[2019-05-01] MEDS ORDERED: Azithromycin 500 MG in Sodium Chloride 0.9% 250 ML IV ONE (16:00)
[2019-05-01] MEDS: Temazepam 15 MG Cap PO PRN (21:21)
[2019-05-01] MEDS: guaiFENesin 600 MG Tab.ER PO PRN (21:21)
[2019-05-02] MEDS: Temazepam 15 MG Cap PO PRN ×2 (00:34→23:45)
[2019-05-02] MEDS: metroNIDAZOLE/Normal Saline 500 MG in Premix Bag 1 BAG IV SCH ×3 (06:07→22:21)
[2019-05-02] MEDS: Sodium Chloride 0.9% 10 ML Syringe FLUSH PRN ×2 (06:08→15:08)
[2019-05-02 07:56] LABS: CHLORIDE,CL 95 mmol/L (98-107); SODIUM,NA 129 mmol/L (136-145)
[2019-05-02] MEDS ORDERED: Azithromycin 500 MG in Sodium Chloride 0.9% 250 ML IV SCH (08:00)
[2019-05-02] MEDS: Timolol Maleate 0.5% Ophth Soln 5 ML Bottle EYEBOTH SCH ×2 (08:18→20:19)
[2019-05-02] MEDS: Metoclopramide 10 MG Tab PO SCH (08:19)
[2019-05-02] MEDS: Albuterol/Ipratropium 3.0-0.5 MG/3 ML Neb Soln NEB SCH ×4 (08:19→20:20)
[2019-05-02] MEDS: Diltiazem 120 MG Cap.CD PO SCH (08:19)
[2019-05-02] MEDS: Hydrochlorothiazide/Triamterene 50-75 MG Tab PO SCH (08:20)
[2019-05-02] MEDS: Lisinopril 10 MG Tab PO SCH (08:21)
[2019-05-02] MEDS: Acetaminophen/HYDROcodone 325-5 MG Tab PO SCH ×4 (08:21→22:20)
[2019-05-02] MEDS: Docusate Sodium 100 MG Cap PO SCH (08:22)
[2019-05-02] MEDS: Brimonidine 0.2% Ophth Soln 5 ML Bottle EYEBOTH SCH ×2 (08:23→20:19)
[2019-05-02] MEDS: Sodium Chloride 0.9% 10 ML Syringe FLUSH SCH ×2 (08:24→20:20)
[2019-05-02] MEDS: Pantoprazole 40 MG Vial IVPUSH SCH (08:24)
[2019-05-02] MEDS: Atenolol 25 MG Tab PO SCH (08:25)
[2019-05-02] MEDS: methylPREDNISolone Sodium Succinate 40 MG/1 ML SDV IVPUSH SCH (08:25)
[2019-05-02] MEDS: guaiFENesin 600 MG Tab.ER PO PRN (08:50)
[2019-05-02] MEDS: Azithromycin 500 MG in Sodium Chloride 0.9% 250 ML IV SCH (11:14)
--- NOTE | 2019-05-02 15:01 | PCM.PN ---
- General Info Date of Service: 05/02/19 Admission Dx/Problem (Free Text): Admission Diagnosis/Problem Admission Diagnosis/Problem COPD with acute lower respiratory infection Functional Status: Reports: Tolerating Diet, Ambulating, Urinating - Review of Systems General: Reports: Fatigue HEENT: Reports: No Symptoms Pulmonary: Reports: Shortness of Breath (much improved from admit), Cough ( productive, "feels better after I cough that stuff up"), Sputum Cardiovascular: Reports: No Symptoms Gastrointestinal: Reports: No Symptoms Genitourinary: Reports: No Symptoms Musculoskeletal: Reports: No Symptoms Skin: Reports: No Symptoms Neurological: Reports: No Symptoms Psychiatric: Reports: No Symptoms - Patient Data Vitals - Most Recent: Last Vital Signs Temp 96.9 F 05/02/19 12:00 Pulse 68 05/02/19 12:00 Resp 15 05/02/19 12:00 BP 146/65 H 05/02/19 12:00 Pulse Ox 97 05/02/19 12:00 Weight - Most Recent: 205 lb 11.2 oz I&O - Last 24 Hours: Intake & Output 05/01/19 05/02/19 05/02/19 22:59 06:59 14:59 Intake Total 891 870 0539 Output Total 350 800 Balance 350 -650 1450 Lab Results Last 24 Hours: Laboratory Results - last 24 hr 05/02/19 05/02/19 Range/Units 07:09 07:09 WBC 12.6 H (4.0-10.2) K/uL RBC 3.80 (3.77-5.09) M/uL Hgb 12.7 (11.7-15.5) g/dL Hct 36.0 (34.0-46.0) % MCV 94.7 (84.0-98.0) fL MCH 33.4 H (28.2-33.3) pg MCHC 35.3 (31.7-36.0) g/dL RDW 12.2 (11.2-14.1) % Plt Count 226 (150-350) K/uL Add Manual Diff Yes Neutrophils % (Manual) 48 Band Neutrophils % 10 Lymphocytes % (Manual) 22 Monocytes % (Manual) 20 Absolute Neutrophils 7.3080 Lymphocytes # (Manual) 2.7720 Monocytes # (Manual) 2.5200 Sodium 129 L (136-145) mmol/L Potassium 3.5 (3.5-5.1) mmol/L Chloride 95 L (98-107) mmol/L Carbon Dioxide 24.7 (21.0-32.0) mmol/L BUN 24 H (7-18) mg/dL Creatinine 0.79 (0.51-1.17) mg/dL Est Cr Clr Drug Dosing 37.40 mL/min Estimated GFR (MDRD) > 60 mL/min Glucose 110 H (74-106) mg/dL Calcium 8.8 (8.5-10.1) mg/dL Total Bilirubin 0.5 (0.2-1.0) mg/dL AST 27 (15-37) U/L ALT 36 (12-78) U/L Alkaline Phosphatase 55 (46-116) IU/L C-Reactive Protein < 0.2 (<=0.9) mg/dL Total Protein 6.5 (6.4-8.2) g/dL Albumin 2.9 L (3.4-5.0) g/dL Med Orders - Current: Current Medications Acetaminophen (Tylenol) 650 mg PO Q3H PRN PRN Reason: Headache/Pain Last Admin: 05/01/19 04:19 Dose: 650 mg Hydrocodone Bitart/Acetaminophen ([place] 325-5 Mg) 1 tab PO QID@08,12,18,21 [facility] Last Admin: 05/02/19 11:13 Dose: 1 tab Albuterol/Ipratropium (Duoneb 3.0-0.5 Mg/3 Ml) 3 ml NEB Q4HRRT PRN PRN Reason: Dyspnea Albuterol/Ipratropium (Duoneb 3.0-0.5 Mg/3 Ml) 3 ml NEB QIDRT [facility] Last Admin: 05/02/19 11:12 Dose: 3 ml Atenolol (Tenormin) 25 mg PO DAILY [facility] Last Admin: 05/02/19 08:25 Dose: 25 mg Azithromycin (Zithromax) 500 mg PO DAILY [facility] Brimonidine Tartrate (Alphagan 0.2% Ophth Soln) 0 ml EYEBOTH Q12HR [facility] Last Admin: 05/02/19 08:23 Dose: 1 drop Diltiazem HCl (Cardizem Cd) 240 mg PO DAILY [facility] Last Admin: 05/02/19 08:19 Dose: 240 mg Docusate Sodium (Colace) 100 mg PO DAILY [facility] Last Admin: 05/02/19 08:22 Dose: 100 mg Guaifenesin (Mucinex) 600 mg PO DAILY PRN PRN Reason: Cough Last Admin: 05/02/19 08:50 Dose: 600 mg Guaifenesin/Dextromethorphan (Mucinex Dm Er 600-30 Mg) 1 tab PO BID [facility] Hydroxyzine HCl (Vistaril) 25 mg IM Q4H PRN PRN Reason: Nausea/Vomiting Metronidazole 500 mg/ Premix 100 mls @ 100 mls/hr IV Q8H [facility] Last Admin: 05/02/19 06:07 Dose: 100 mls/hr Azithromycin 500 mg/ Sodium (Chloride) 250 mls @ 250 mls/hr IV DAILY@1200 [facility] Stop: 05/03/19 12:59 Last Admin: 05/02/19 11:14 Dose: 250 mls/hr Lisinopril (Prinivil) 10 mg PO DAILY [facility] Last Admin: 05/02/19 08:21 Dose: 10 mg Methylprednisolone Sodium Succinate (Solu-Medrol) 40 mg IVPUSH DAILY [facility] Last Admin: 05/02/19 08:25 Dose: 40 mg Metoclopramide HCl (Reglan) 5 mg PO DAILY [facility] Last Admin: 05/02/19 08:19 Dose: 5 mg Ondansetron HCl (Zofran) 4 mg IVPUSH Q6H PRN PRN Reason: Nausea/Vomiting Last Admin: 04/30/19 06:34 Dose: 4 mg Pantoprazole Sodium (Protonix Iv) 40 mg IVPUSH DAILY [facility] Last Admin: 05/02/19 08:24 Dose: 40 mg Pharmacy Consult (Consult To Pharmacy) 1 each .XX ASDIRECTED [facility] Sodium Chloride (Saline Flush) 10 ml FLUSH ASDIRECTED PRN PRN Reason: Keep Vein Open Last Admin: 05/02/19 06:08 Dose: 10 ml Sodium Chloride (Saline Flush) 10 ml FLUSH Q12HR [facility] Last Admin: 05/02/19 08:24 Dose: 10 ml Temazepam (Restoril) 15 mg PO BEDTIME PRN PRN Reason: Insomnia Last Admin: 05/02/19 00:34 Dose: 15 mg Timolol Maleate (Timoptic 0.5% Ophth Soln) 0 ml EYEBOTH Q12HR [facility] Last Admin: 05/02/19 08:18 Dose: 1 drop Triamterene/HCTZ (Maxzide 50-75 Mg) 0.5 each PO DAILY [facility] Last Admin: 05/02/19 08:20 Dose: 0.5 each Discontinued Medications Albuterol/Ipratropium (Duoneb 3.0-0.5 Mg/3 Ml) 3 ml NEB Q4HRRT [facility] Last Admin: 04/29/19 15:38 Dose: 3 ml Azithromycin (Zithromax) 500 mg PO DAILY [facility] Enoxaparin Sodium (Lovenox) 30 mg SUBCUT Q24H [facility] Last Admin: 04/30/19 09:14 Dose: 30 mg Folic Acid (Folic Acid) 1 mg PO BEDTIME [facility] Guaifenesin (Mucinex) 600 mg PO DAILY [facility] Hydroxyzine HCl (Vistaril) 25 mg IM ONETIME ONE Stop: 04/29/19 17:21 Last Admin: 04/29/19 17:35 Dose: 25 mg Levofloxacin/Dextrose 500 mg/ (Premix) 100 mls @ 100 mls/hr IV Q24H [facility] Last Admin: 05/01/19 15:53 Dose: Not Given Sodium Chloride (Normal Saline) 1,000 mls @ 50 mls/hr IV ASDIRECTED [facility] Last Admin: 05/01/19 11:02 Dose: 50 mls/hr Azithromycin 500 mg/ Sodium (Chloride) 250 mls @ 250 mls/hr IV DAILY [facility] Stop: 05/04/19 08:59 Azithromycin 500 mg/ Sodium (Chloride) 250 mls @ 250 mls/hr IV ONETIME ONE Stop: 05/01/19 16:59 Last Admin: 05/01/19 16:05 Dose: 250 mls/hr Lovastatin (Mevacor) 40 mg PO BEDTIME [facility] Methylprednisolone Sodium Succinate (Solu-Medrol) 40 mg IVPUSH Q12H [facility] Last Admin: 04/29/19 14:16 Dose: 40 mg Methylprednisolone Sodium Succinate (Solu-Medrol) 40 mg IVPUSH Q12HR [facility] Last Admin: 04/30/19 21:08 Dose: 40 mg Sertraline HCl (Zoloft) 25 mg PO DAILY [facility] Last Admin: 04/30/19 10:10 Dose: Not Given Vit C/Vit E/Zinc/Copper/Lutein (Ocuvite Lutein) 1 each PO DAILY [facility] - Exam General: Alert, Oriented HEENT: EOMI, Mucous Membr. Moist/[place] Neck: Supple, Trachea Midline, No JVD Lungs: Normal Respiratory Effort, Crackles (faint bibasilar) Cardiovascular: Regular Rate, Regular Rhythm GI/Abdominal Exam: Normal Bowel Sounds, Soft, Non-Tender (Female) Exam: Deferred Back Exam: Normal Inspection Extremities: Normal Inspection Skin: Warm, Dry, Intact Neurological: No New Focal Deficit Psy/Mental Status: Alert, Normal Affect, Normal Mood - Problem List Review Problem List Initiated/Reviewed/Updated: Yes - My Orders Last 24 Hours: My Active Orders 05/02/19 18:00 Dextromethorphan/guaiFENesin [Mucinex DM ER 600-30 MG] 1 tab PO BID - Plan Plan:: 04/29/2019 Patient failed outpatient treatment with oral antibiotics and duoneb treatments. Now with nausea and vomiting, will admit inpatient and start IV antibiotics and IV solumedrol. Recheck labs in the morning. Patient agreed to the plan of care. Discussed with Dr Vela. IV Zofran ordered prn. Xrays ordered of chest and abdomen. Dominique Armijo CNP 04/30/19 Dane Mendoza MD Feels a little bit better today. Less short of breath. Some mental confusion last night. Did not vomit today. 05/01/19 Dane Mendoza MD Continues to improve. Mycoplasma +. Will change antibiotics to zithromax. Sodium stabilizing off zoloft. Adequate oral intake. Will d/c maintenance IV fluid. 05-02-19 Inga Day PA-C Labs noted. Patient says improving, son says she looks so much better than when admitted. Home meds ordered at [facility] and son will medicinal plant picker - po Zithromax, prednisone and ondansetrom ODT to use prn. Changed Mucinex DM to BID routinely. Patient is ambulating in the hallway. Does get SOB but denies any CP. Hates the hospital bed. Discussed discharge to home tomorrow, cannot qualify for transfer to [facility]. Discussed the positive mycoplasma, reassurance offered that she was changed to the appropriate antibiotic Zithromax. SOBIA Bolanos, her regular provider, will see for the discharge to home in the morning. Son Aime is with now and very supportive, and will be here to transport to home and get settled in tomorrow.
[2019-05-02] MEDS: Dextromethorphan/guaiFENesin 600-30 MG Tab.ER PO SCH (17:26)
[2019-05-03] MEDS: metroNIDAZOLE/Normal Saline 500 MG in Premix Bag 1 BAG IV SCH ×3 (06:52→21:50)
[2019-05-03] MEDS: Sodium Chloride 0.9% 10 ML Syringe FLUSH PRN (06:52)
[2019-05-03 08:10] LABS: CHLORIDE,CL 95 mmol/L (98-107); SODIUM,NA 130 mmol/L (136-145)
[2019-05-03] MEDS: Lisinopril 10 MG Tab PO SCH (08:20)
[2019-05-03] MEDS: Brimonidine 0.2% Ophth Soln 5 ML Bottle EYEBOTH SCH ×2 (08:20→20:07)
[2019-05-03] MEDS: Acetaminophen/HYDROcodone 325-5 MG Tab PO SCH ×4 (08:21→20:11)
[2019-05-03] MEDS: Metoclopramide 10 MG Tab PO SCH (08:21)
[2019-05-03] MEDS: Pantoprazole 40 MG Vial IVPUSH SCH (08:21)
[2019-05-03] MEDS: Diltiazem 120 MG Cap.CD PO SCH (08:22)
[2019-05-03] MEDS: Docusate Sodium 100 MG Cap PO SCH ×2 (08:22→17:34)
[2019-05-03] MEDS: Hydrochlorothiazide/Triamterene 50-75 MG Tab PO SCH (08:23)
[2019-05-03] MEDS: Atenolol 25 MG Tab PO SCH (08:23)
[2019-05-03] MEDS: methylPREDNISolone Sodium Succinate 40 MG/1 ML SDV IVPUSH SCH (08:24)
[2019-05-03] MEDS: Sodium Chloride 0.9% 10 ML Syringe FLUSH SCH ×2 (08:24→20:12)
[2019-05-03] MEDS: Albuterol/Ipratropium 3.0-0.5 MG/3 ML Neb Soln NEB SCH ×4 (08:24→20:06)
[2019-05-03] MEDS: Dextromethorphan/guaiFENesin 600-30 MG Tab.ER PO SCH ×2 (08:24→17:34)
[2019-05-03] MEDS: Timolol Maleate 0.5% Ophth Soln 5 ML Bottle EYEBOTH SCH ×2 (08:25→20:06)
[2019-05-03] MEDS ORDERED: Ondansetron 4 MG Tab.DIS PO PRN (10:08)
--- NOTE | 2019-05-03 10:19 | PCM.PN ---
- General Info Date of Service: 05/03/19 Admission Dx/Problem (Free Text): Admission Diagnosis/Problem Admission Diagnosis/Problem COPD with acute lower respiratory infection Functional Status: Reports: Pain Controlled - Review of Systems General: Reports: Weakness HEENT: Reports: No Symptoms Pulmonary: Reports: Cough Cardiovascular: Reports: No Symptoms Gastrointestinal: Reports: Decreased Appetite, Nausea Genitourinary: Reports: No Symptoms Musculoskeletal: Reports: Joint Pain Skin: Reports: No Symptoms Neurological: Reports: No Symptoms Psychiatric: Reports: No Symptoms - Patient Data Vitals - Most Recent: Last Vital Signs Temp 98.1 F 05/03/19 08:00 Pulse 79 05/03/19 08:23 Resp 16 05/03/19 08:00 BP 180/70 H 05/03/19 08:23 Pulse Ox 97 05/03/19 08:00 Weight - Most Recent: 205 lb 11.2 oz I&O - Last 24 Hours: Intake & Output 05/02/19 05/03/19 05/03/19 22:59 06:59 14:59 Intake Total 1185 350 300 Output Total 600 1250 Balance 585 -900 300 Lab Results Last 24 Hours: Laboratory Results - last 24 hr 05/03/19 05/03/19 Range/Units 07:15 07:15 WBC 12.9 H (4.0-10.2) K/uL RBC 4.16 (3.77-5.09) M/uL Hgb 13.7 (11.7-15.5) g/dL Hct 39.3 (34.0-46.0) % MCV 94.5 (84.0-98.0) fL MCH 32.9 (28.2-33.3) pg MCHC 34.9 (31.7-36.0) g/dL RDW 12.0 (11.2-14.1) % Plt Count 270 (150-350) K/uL Neut % (Auto) 57.4 (45.0-80.0) % Lymph % (Auto) 20.6 (10.0-50.0) % [place] % (Auto) 20.6 H (2.0-14.0) % Eos % (Auto) 0.2 (0.0-5.0) % Baso % (Auto) 1.2 (0.0-2.0) % Neut # (Auto) 7.43 H (1.40-7.00) K/uL Lymph # (Auto) 2.66 (0.50-3.50) K/uL [place] # (Auto) 2.67 H (0.00-1.00) K/uL Eos # (Auto) 0.02 (0.00-0.50) K/uL Baso # (Auto) 0.16 (0.00-0.20) K/uL Sodium 130 L (136-145) mmol/L Potassium 3.6 (3.5-5.1) mmol/L Chloride 95 L (98-107) mmol/L Carbon Dioxide 27.7 (21.0-32.0) mmol/L BUN 21 H (7-18) mg/dL Creatinine 0.73 (0.51-1.17) mg/dL Est Cr Clr Drug Dosing 40.47 mL/min Estimated GFR (MDRD) > 60 mL/min Glucose 109 H (74-106) mg/dL Calcium 9.0 (8.5-10.1) mg/dL Total Bilirubin 0.6 (0.2-1.0) mg/dL AST 28 (15-37) U/L ALT 48 (12-78) U/L Alkaline Phosphatase 64 (46-116) IU/L C-Reactive Protein 0.2 (<=0.9) mg/dL Total Protein 7.1 (6.4-8.2) g/dL Albumin 3.3 L (3.4-5.0) g/dL Med Orders - Current: Current Medications Acetaminophen (Tylenol) 650 mg PO Q3H PRN PRN Reason: Headache/Pain Last Admin: 05/01/19 04:19 Dose: 650 mg Hydrocodone Bitart/Acetaminophen ([place] 325-5 Mg) 1 tab PO QID@08,12,18,21 REPLACED BY [facility] Last Admin: 05/03/19 08:21 Dose: 1 tab Albuterol/Ipratropium (Duoneb 3.0-0.5 Mg/3 Ml) 3 ml NEB Q4HRRT PRN PRN Reason: Dyspnea Albuterol/Ipratropium (Duoneb 3.0-0.5 Mg/3 Ml) 3 ml NEB QIDRT REPLACED BY [facility] Last Admin: 05/03/19 08:24 Dose: 3 ml Atenolol (Tenormin) 25 mg PO DAILY REPLACED BY [facility] Last Admin: 05/03/19 08:23 Dose: 25 mg Azithromycin (Zithromax) 500 mg PO DAILY REPLACED BY [facility] Brimonidine Tartrate (Alphagan 0.2% Ophth Soln) 0 ml EYEBOTH Q12HR REPLACED BY [facility] Last Admin: 05/03/19 08:20 Dose: 1 drop Diltiazem HCl (Cardizem Cd) 240 mg PO DAILY REPLACED BY [facility] Last Admin: 05/03/19 08:22 Dose: 240 mg Docusate Sodium (Colace) 100 mg PO BID REPLACED BY [facility] Guaifenesin (Mucinex) 600 mg PO DAILY PRN PRN Reason: Cough Last Admin: 05/02/19 08:50 Dose: 600 mg Guaifenesin/Dextromethorphan (Mucinex Dm Er 600-30 Mg) 1 tab PO BID REPLACED BY [facility] Last Admin: 05/03/19 08:24 Dose: 1 tab Hydroxyzine HCl (Vistaril) 25 mg IM Q4H PRN PRN Reason: Nausea/Vomiting Metronidazole 500 mg/ Premix 100 mls @ 100 mls/hr IV Q8H REPLACED BY [facility] Last Admin: 05/03/19 06:52 Dose: 100 mls/hr Azithromycin 500 mg/ Sodium (Chloride) 250 mls @ 250 mls/hr IV DAILY@1200 REPLACED BY [facility] Stop: 05/03/19 12:59 Last Admin: 05/02/19 11:14 Dose: 250 mls/hr Lisinopril (Prinivil) 10 mg PO DAILY REPLACED BY [facility] Last Admin: 05/03/19 08:20 Dose: 10 mg Methylprednisolone Sodium Succinate (Solu-Medrol) 40 mg IVPUSH DAILY REPLACED BY [facility] Last Admin: 05/03/19 08:24 Dose: 40 mg Metoclopramide HCl (Reglan) 5 mg PO DAILY REPLACED BY [facility] Last Admin: 05/03/19 08:21 Dose: 5 mg Ondansetron HCl (Zofran Odt) 4 mg PO Q6H PRN PRN Reason: Nausea/Vomiting Pantoprazole Sodium (Protonix) 40 mg PO ACBREAKFAST REPLACED BY [facility] Pharmacy Consult (Consult To Pharmacy) 1 each .XX ASDIRECTED REPLACED BY [facility] Sodium Chloride (Saline Flush) 10 ml FLUSH ASDIRECTED PRN PRN Reason: Keep Vein Open Last Admin: 05/03/19 06:52 Dose: 10 ml Sodium Chloride (Saline Flush) 10 ml FLUSH Q12HR REPLACED BY [facility] Last Admin: 05/03/19 08:24 Dose: 10 ml Temazepam (Restoril) 15 mg PO BEDTIME PRN PRN Reason: Insomnia Last Admin: 05/02/19 23:45 Dose: 15 mg Timolol Maleate (Timoptic 0.5% Ophth Soln) 0 ml EYEBOTH Q12HR REPLACED BY [facility] Last Admin: 05/03/19 08:25 Dose: 1 drop Triamterene/HCTZ (Maxzide 50-75 Mg) 0.5 each PO DAILY REPLACED BY [facility] Last Admin: 05/03/19 08:23 Dose: 0.5 each Discontinued Medications Albuterol/Ipratropium (Duoneb 3.0-0.5 Mg/3 Ml) 3 ml NEB Q4HRRT REPLACED BY [facility] Last Admin: 04/29/19 15:38 Dose: 3 ml Azithromycin (Zithromax) 500 mg PO DAILY REPLACED BY [facility] Docusate Sodium (Colace) 100 mg PO DAILY REPLACED BY [facility] Last Admin: 05/03/19 08:22 Dose: 100 mg Enoxaparin Sodium (Lovenox) 30 mg SUBCUT Q24H REPLACED BY [facility] Last Admin: 04/30/19 09:14 Dose: 30 mg Folic Acid (Folic Acid) 1 mg PO BEDTIME REPLACED BY [facility] Guaifenesin (Mucinex) 600 mg PO DAILY REPLACED BY [facility] Hydroxyzine HCl (Vistaril) 25 mg IM ONETIME ONE Stop: 04/29/19 17:21 Last Admin: 04/29/19 17:35 Dose: 25 mg Levofloxacin/Dextrose 500 mg/ (Premix) 100 mls @ 100 mls/hr IV Q24H REPLACED BY [facility] Last Admin: 05/01/19 15:53 Dose: Not Given Sodium Chloride (Normal Saline) 1,000 mls @ 50 mls/hr IV ASDIRECTED REPLACED BY [facility] Last Admin: 05/01/19 11:02 Dose: 50 mls/hr Azithromycin 500 mg/ Sodium (Chloride) 250 mls @ 250 mls/hr IV DAILY REPLACED BY [facility] Stop: 05/04/19 08:59 Azithromycin 500 mg/ Sodium (Chloride) 250 mls @ 250 mls/hr IV ONETIME ONE Stop: 05/01/19 16:59 Last Admin: 05/01/19 16:05 Dose: 250 mls/hr Lovastatin (Mevacor) 40 mg PO BEDTIME REPLACED BY [facility] Methylprednisolone Sodium Succinate (Solu-Medrol) 40 mg IVPUSH Q12H REPLACED BY [facility] Last Admin: 04/29/19 14:16 Dose: 40 mg Methylprednisolone Sodium Succinate (Solu-Medrol) 40 mg IVPUSH Q12HR REPLACED BY [facility] Last Admin: 04/30/19 21:08 Dose: 40 mg Ondansetron HCl (Zofran) 4 mg IVPUSH Q6H PRN PRN Reason: Nausea/Vomiting Last Admin: 04/30/19 06:34 Dose: 4 mg Pantoprazole Sodium (Protonix Iv) 40 mg IVPUSH DAILY REPLACED BY [facility] Last Admin: 05/03/19 08:21 Dose: 40 mg Sertraline HCl (Zoloft) 25 mg PO DAILY REPLACED BY [facility] Last Admin: 04/30/19 10:10 Dose: Not Given Vit C/Vit E/Zinc/Copper/Lutein (Ocuvite Lutein) 1 each PO DAILY REPLACED BY [facility] - Exam Quality Assessment: DVT Prophylaxis General: Alert, Oriented, Cooperative, No Acute Distress HEENT: Pupils Equal, Pupils Reactive Neck: Supple, Trachea Midline, No JVD Lungs: Normal Respiratory Effort, Decreased Breath Sounds, Wheezing Cardiovascular: Regular Rate, Regular Rhythm, Murmurs GI/Abdominal Exam: Normal Bowel Sounds, Soft, Non-Tender, No Organomegaly Back Exam: Normal Inspection, Full Range of Motion Extremities: Normal Inspection, Normal Range of Motion, Non-Tender, No Pedal Edema, Normal Capillary Refill Peripheral Pulses: 1+: Popliteal (R), Posterior Tibial (L), Posterior Tibial (R) , Dorsalis Pedis (L) Skin: Warm, Dry, Intact Neurological: No New Focal Deficit Psy/Mental Status: Alert, Normal Affect, Normal Mood - Problem List & Annotations (1) COPD (chronic obstructive pulmonary disease) SNOMED Code(s): 63337365 Code(s): J44.9 - CHRONIC OBSTRUCTIVE PULMONARY DISEASE, UNSPECIFIED Status : Chronic Priority: Medium Current Visit: No Qualifiers: COPD type: COPD with acute exacerbation Qualified Code(s): J44.1 - Chronic obstructive pulmonary disease with (acute) exacerbation (2) Nausea & vomiting SNOMED Code(s): 98111793 Code(s): R11.2 - NAUSEA WITH VOMITING, UNSPECIFIED Status: Acute Current Visit: Yes Qualifiers: Vomiting type: cyclical vomiting Vomiting Intractability: intractable Qualified Code(s): G43.A1 - Cyclical vomiting, intractable (3) Rheumatoid arthritis SNOMED Code(s): 17770950 Code(s): M06.9 - RHEUMATOID ARTHRITIS, UNSPECIFIED Status: Acute Current Visit: Yes Qualifiers: Rheumatoid arthritis location: multiple sites Rheumatoid factor presence: with rheumatoid factor Qualified Code(s): M05.79 - Rheumatoid arthritis with rheumatoid factor of multiple sites without organ or systems involvement (4) Hyponatremia SNOMED Code(s): 64281176 Code(s): E87.1 - HYPO-OSMOLALITY AND HYPONATREMIA Status: Acute Current Visit: Yes Annotation/Comment:: Sodium is still low but slowly coming up. Will continue current medications and recheck in am - Problem List Review Problem List Initiated/Reviewed/Updated: Yes - My Orders Last 24 Hours: My Active Orders 05/03/19 10:08 Ondansetron [Zofran ODT] 4 mg PO Q6H PRN 05/03/19 18:00 Docusate Sodium [Colace] 100 mg PO BID 05/04/19 05:11 BASIC METABOLIC PANEL,BMP [CHEM] Routine CBC WITH AUTO DIFF [HEME] Routine 05/04/19 07:30 Pantoprazole [ProTONIX] 40 mg PO ACBREAKFAST - Plan Plan:: 04/29/2019 Patient failed outpatient treatment with oral antibiotics and duoneb treatments. Now with nausea and vomiting, will admit inpatient and start IV antibiotics and IV solumedrol. Recheck labs in the morning. Patient agreed to the plan of care. Discussed with Dr Vela. IV Zofran ordered prn. Xrays ordered of chest and abdomen. Dominique Armijo,LAPPING MACHINE SET UP OPERATOR 04/30/19 Dane Mendoza MD Feels a little bit better today. Less short of breath. Some mental confusion last night. Did not vomit today. 05/01/19 Dane Mendoza MD Continues to improve. Mycoplasma +. Will change antibiotics to zithromax. Sodium stabilizing off zoloft. Adequate oral intake. Will d/c maintenance IV fluid. 05-02-19 Inga Day PA-C Labs noted. Patient says improving, son says she looks so much better than when admitted. Home meds ordered at [facility] and son will tile picker - po Zithromax, prednisone and ondansetrom ODT to use prn. Changed Mucinex DM to BID routinely. Patient is ambulating in the hallway. Does get SOB but denies any CP. Hates the hospital bed. Discussed discharge to home tomorrow, cannot qualify for transfer to [facility] status. Discussed the positive mycoplasma, reassurance offered that she was changed to the appropriate antibiotic Zithromax. Dominique Armijo, C-BIOLOGICAL SCIENCES INSTRUCTOR, her regular provider, will see for the discharge to home in the morning. Son Aime is with now and very supportive, and will be here to transport to home and get settled in tomorrow. 05/03/2019 Patient is not feeling well. Has nausea, sodium still low at 130. Patient feels very weak and tired. WBC still elevated. Will keep the patient and plan for discharge tomorrow. Patient has wheezing which she states just started through the night but relief with nebulizer treatments. Will continue to monitor respiratory status. Patient requires inpatient stay due to hyponatremia, change in respiratory status and now with nausea. Blood pressure elevated, will continue to monitor and patient may need medication changes. Discussed with patient and son, they bother verbalized understanding. Dominique Armijo, LAPPING MACHINE SET UP OPERATOR
[2019-05-03] MEDS: Azithromycin 500 MG in Sodium Chloride 0.9% 250 ML IV SCH (12:11)
[2019-05-04] MEDS: metroNIDAZOLE/Normal Saline 500 MG in Premix Bag 1 BAG IV SCH ×3 (05:27→21:00)
[2019-05-04] MEDS: Sodium Chloride 0.9% 10 ML Syringe FLUSH PRN ×2 (05:28→14:25)
[2019-05-04 07:39] LABS: CHLORIDE,CL 97 mmol/L (98-107); SODIUM,NA 134 mmol/L (136-145)
[2019-05-04] MEDS: Dextromethorphan/guaiFENesin 600-30 MG Tab.ER PO SCH ×2 (07:47→17:04)
[2019-05-04] MEDS: Azithromycin 250 MG Tab PO SCH (07:47)
[2019-05-04] MEDS: Lisinopril 10 MG Tab PO SCH (07:48)
[2019-05-04] MEDS: Atenolol 25 MG Tab PO SCH (07:51)
[2019-05-04] MEDS: Pantoprazole 40 MG Tab.CR PO SCH (07:51)
[2019-05-04] MEDS: Hydrochlorothiazide/Triamterene 50-75 MG Tab PO SCH (07:52)
[2019-05-04] MEDS: Diltiazem 120 MG Cap.CD PO SCH (07:53)
[2019-05-04] MEDS: Acetaminophen/HYDROcodone 325-5 MG Tab PO SCH ×4 (07:53→20:56)
[2019-05-04] MEDS: Docusate Sodium 100 MG Cap PO SCH ×2 (07:54→17:04)
[2019-05-04] MEDS: Sodium Chloride 0.9% 10 ML Syringe FLUSH SCH ×2 (07:54→19:38)
[2019-05-04] MEDS: Albuterol/Ipratropium 3.0-0.5 MG/3 ML Neb Soln NEB SCH ×4 (07:54→19:37)
[2019-05-04] MEDS: methylPREDNISolone Sodium Succinate 40 MG/1 ML SDV IVPUSH SCH (07:54)
[2019-05-04] MEDS: Metoclopramide 10 MG Tab PO SCH (07:54)
[2019-05-04] MEDS: Timolol Maleate 0.5% Ophth Soln 5 ML Bottle EYEBOTH SCH ×2 (07:55→19:38)
[2019-05-04] MEDS: Brimonidine 0.2% Ophth Soln 5 ML Bottle EYEBOTH SCH ×2 (07:55→19:39)
[2019-05-04] MEDS ORDERED: Meclizine 25 MG Tab PO PRN (10:46)
--- NOTE | 2019-05-04 10:58 | PCM.PN ---
- General Info Date of Service: 05/04/19 Admission Dx/Problem (Free Text): Admission Diagnosis/Problem Admission Diagnosis/Problem COPD with acute lower respiratory infection Subjective Update: Patient feeling dizzy today and unsteady on the feet. Functional Status: Reports: Tolerating Diet - Review of Systems General: Reports: Weakness HEENT: Reports: Post Nasal Drip Pulmonary: Reports: Cough Cardiovascular: Reports: No Symptoms Gastrointestinal: Reports: No Symptoms Genitourinary: Reports: No Symptoms Musculoskeletal: Reports: Joint Pain Skin: Reports: No Symptoms Neurological: Reports: No Symptoms Psychiatric: Reports: No Symptoms - Patient Data Vitals - Most Recent: Last Vital Signs Temp 97.1 F 05/04/19 08:00 Pulse 87 05/04/19 08:00 Resp 20 05/04/19 08:00 BP 150/89 H 05/04/19 08:00 Pulse Ox 94 L 05/04/19 08:00 Weight - Most Recent: 205 lb 11.2 oz I&O - Last 24 Hours: Intake & Output 05/03/19 05/04/19 05/04/19 22:59 06:59 14:59 Intake Total 770 100 Output Total 200 700 Balance 570 -600 Lab Results Last 24 Hours: Laboratory Results - last 24 hr 05/04/19 05/04/19 Range/Units 07:10 07:10 WBC 13.1 H (4.0-10.2) K/uL RBC 3.85 (3.77-5.09) M/uL Hgb 12.9 (11.7-15.5) g/dL Hct 36.4 (34.0-46.0) % MCV 94.5 (84.0-98.0) fL MCH 33.5 H (28.2-33.3) pg MCHC 35.4 (31.7-36.0) g/dL RDW 12.0 (11.2-14.1) % Plt Count 242 (150-350) K/uL Neut % (Auto) 58.2 (45.0-80.0) % Lymph % (Auto) 20.6 (10.0-50.0) % [place] % (Auto) 19.8 H (2.0-14.0) % Eos % (Auto) 0.2 (0.0-5.0) % Baso % (Auto) 1.2 (0.0-2.0) % Neut # (Auto) 7.60 H (1.40-7.00) K/uL Lymph # (Auto) 2.69 (0.50-3.50) K/uL [place] # (Auto) 2.58 H (0.00-1.00) K/uL Eos # (Auto) 0.02 (0.00-0.50) K/uL Baso # (Auto) 0.16 (0.00-0.20) K/uL Sodium 134 L (136-145) mmol/L Potassium 3.6 (3.5-5.1) mmol/L Chloride 97 L (98-107) mmol/L Carbon Dioxide 26.7 (21.0-32.0) mmol/L BUN 21 H (7-18) mg/dL Creatinine 0.69 (0.51-1.17) mg/dL Est Cr Clr Drug Dosing 42.82 mL/min Estimated GFR (MDRD) > 60 mL/min Glucose 106 (74-106) mg/dL Calcium 8.8 (8.5-10.1) mg/dL Med Orders - Current: Current Medications Acetaminophen (Tylenol) 650 mg PO Q3H PRN PRN Reason: Headache/Pain Last Admin: 05/01/19 04:19 Dose: 650 mg Hydrocodone Bitart/Acetaminophen ([place] 325-5 Mg) 1 tab PO QID@08,12,18,21 [facility] Last Admin: 05/04/19 07:53 Dose: 1 tab Albuterol/Ipratropium (Duoneb 3.0-0.5 Mg/3 Ml) 3 ml NEB Q4HRRT PRN PRN Reason: Dyspnea Albuterol/Ipratropium (Duoneb 3.0-0.5 Mg/3 Ml) 3 ml NEB QIDRT [facility] Last Admin: 05/04/19 07:54 Dose: 3 ml Atenolol (Tenormin) 25 mg PO DAILY [facility] Last Admin: 05/04/19 07:51 Dose: 25 mg Azithromycin (Zithromax) 500 mg PO DAILY [facility] Last Admin: 05/04/19 07:47 Dose: 500 mg Brimonidine Tartrate (Alph[place] 0.2% Ophth Soln) 0 ml EYEBOTH Q12HR [facility] Last Admin: 05/04/19 07:55 Dose: 1 drop Diltiazem HCl (Cardizem Cd) 240 mg PO DAILY [facility] Last Admin: 05/04/19 07:53 Dose: 240 mg Docusate Sodium (Colace) 100 mg PO BID [facility] Last Admin: 05/04/19 07:54 Dose: 100 mg Guaifenesin (Mucinex) 600 mg PO DAILY PRN PRN Reason: Cough Last Admin: 05/02/19 08:50 Dose: 600 mg Guaifenesin/Dextromethorphan (Mucinex Dm Er 600-30 Mg) 1 tab PO BID [facility] Last Admin: 05/04/19 07:47 Dose: 1 tab Hydroxyzine HCl (Vistaril) 25 mg IM Q4H PRN PRN Reason: Nausea/Vomiting Metronidazole 500 mg/ Premix 100 mls @ 100 mls/hr IV Q8H [facility] Last Admin: 05/04/19 05:27 Dose: 100 mls/hr Lisinopril (Prinivil) 10 mg PO DAILY [facility] Last Admin: 05/04/19 07:48 Dose: 10 mg Methylprednisolone Sodium Succinate (Solu-Medrol) 40 mg IVPUSH DAILY [facility] Last Admin: 05/04/19 07:54 Dose: 40 mg Metoclopramide HCl (Reglan) 5 mg PO DAILY [facility] Last Admin: 05/04/19 07:54 Dose: 5 mg Ondansetron HCl (Zofran Odt) 4 mg PO Q6H PRN PRN Reason: Nausea/Vomiting Pantoprazole Sodium (Protonix) 40 mg PO ACBREAKFAST [facility] Last Admin: 05/04/19 07:51 Dose: 40 mg Pharmacy Consult (Consult To Pharmacy) 1 each .XX ASDIRECTED [facility] Sodium Chloride (Saline Flush) 10 ml FLUSH ASDIRECTED PRN PRN Reason: Keep Vein Open Last Admin: 05/04/19 05:28 Dose: 10 ml Sodium Chloride (Saline Flush) 10 ml FLUSH Q12HR [facility] Last Admin: 05/04/19 07:54 Dose: 10 ml Temazepam (Restoril) 15 mg PO BEDTIME PRN PRN Reason: Insomnia Last Admin: 05/02/19 23:45 Dose: 15 mg Timolol Maleate (Timoptic 0.5% Ophth Soln) 0 ml EYEBOTH Q12HR [facility] Last Admin: 05/04/19 07:55 Dose: 1 drop Triamterene/HCTZ (Maxzide 50-75 Mg) 0.5 each PO DAILY [facility] Last Admin: 05/04/19 07:52 Dose: 0.5 each Discontinued Medications Albuterol/Ipratropium (Duoneb 3.0-0.5 Mg/3 Ml) 3 ml NEB Q4HRRT [facility] Last Admin: 04/29/19 15:38 Dose: 3 ml Azithromycin (Zithromax) 500 mg PO DAILY [facility] Docusate Sodium (Colace) 100 mg PO DAILY [facility] Last Admin: 05/03/19 08:22 Dose: 100 mg Enoxaparin Sodium (Lovenox) 30 mg SUBCUT Q24H [facility] Last Admin: 04/30/19 09:14 Dose: 30 mg Folic Acid (Folic Acid) 1 mg PO BEDTIME [facility] Guaifenesin (Mucinex) 600 mg PO DAILY [facility] Hydroxyzine HCl (Vistaril) 25 mg IM ONETIME ONE Stop: 04/29/19 17:21 Last Admin: 04/29/19 17:35 Dose: 25 mg Levofloxacin/Dextrose 500 mg/ (Premix) 100 mls @ 100 mls/hr IV Q24H [facility] Last Admin: 05/01/19 15:53 Dose: Not Given Sodium Chloride (Normal Saline) 1,000 mls @ 50 mls/hr IV ASDIRECTED [facility] Last Admin: 05/01/19 11:02 Dose: 50 mls/hr Azithromycin 500 mg/ Sodium (Chloride) 250 mls @ 250 mls/hr IV DAILY [facility] Stop: 05/04/19 08:59 Azithromycin 500 mg/ Sodium (Chloride) 250 mls @ 250 mls/hr IV ONETIME ONE Stop: 05/01/19 16:59 Last Admin: 05/01/19 16:05 Dose: 250 mls/hr Azithromycin 500 mg/ Sodium (Chloride) 250 mls @ 250 mls/hr IV DAILY@1200 [facility] Stop: 05/03/19 12:59 Last Admin: 05/03/19 12:11 Dose: 250 mls/hr Lovastatin (Mevacor) 40 mg PO BEDTIME [facility] Methylprednisolone Sodium Succinate (Solu-Medrol) 40 mg IVPUSH Q12H [facility] Last Admin: 04/29/19 14:16 Dose: 40 mg Methylprednisolone Sodium Succinate (Solu-Medrol) 40 mg IVPUSH Q12HR [facility] Last Admin: 04/30/19 21:08 Dose: 40 mg Ondansetron HCl (Zofran) 4 mg IVPUSH Q6H PRN PRN Reason: Nausea/Vomiting Last Admin: 04/30/19 06:34 Dose: 4 mg Pantoprazole Sodium (Protonix Iv) 40 mg IVPUSH DAILY [facility] Last Admin: 05/03/19 08:21 Dose: 40 mg Sertraline HCl (Zoloft) 25 mg PO DAILY [facility] Last Admin: 04/30/19 10:10 Dose: Not Given Vit C/Vit E/Zinc/Copper/Lutein (Ocuvite Lutein) 1 each PO DAILY [facility] - Exam Quality Assessment: DVT Prophylaxis General: Alert, Oriented, Cooperative, No Acute Distress HEENT: Pupils Equal, Pupils Reactive, EOMI, Mucous Membr. Moist/[place] Neck: Supple, Trachea Midline, No JVD Lungs: Normal Respiratory Effort, Decreased Breath Sounds, Crackles (few scattered crackles to left lower lobe) Cardiovascular: Regular Rate, Regular Rhythm GI/Abdominal Exam: Normal Bowel Sounds, Soft, Non-Tender, No Organomegaly, No Distention Back Exam: Normal Inspection Extremities: Normal Inspection, Normal Range of Motion, Non-Tender, No Pedal Edema, Normal Capillary Refill Peripheral Pulses: 1+: Dorsalis Pedis (L), Dorsalis Pedis (R) Skin: Warm, Dry, Intact Neurological: No New Focal Deficit Psy/Mental Status: Alert, Normal Affect, Normal Mood - Problem List & Annotations (1) COPD (chronic obstructive pulmonary disease) SNOMED Code(s): 28795152 Code(s): J44.9 - CHRONIC OBSTRUCTIVE PULMONARY DISEASE, UNSPECIFIED Status : Chronic Priority: Medium Current Visit: No Qualifiers: COPD type: COPD with acute exacerbation Qualified Code(s): J44.1 - Chronic obstructive pulmonary disease with (acute) exacerbation (2) Nausea & vomiting SNOMED Code(s): 17894973 Code(s): R11.2 - NAUSEA WITH VOMITING, UNSPECIFIED Status: Acute Current Visit: Yes Qualifiers: Vomiting type: cyclical vomiting Vomiting Intractability: intractable Qualified Code(s): G43.A1 - Cyclical vomiting, intractable (3) Rheumatoid arthritis SNOMED Code(s): 24324733 Code(s): M06.9 - RHEUMATOID ARTHRITIS, UNSPECIFIED Status: Acute Current Visit: Yes Qualifiers: Rheumatoid arthritis location: multiple sites Rheumatoid factor presence: with rheumatoid factor Qualified Code(s): M05.79 - Rheumatoid arthritis with rheumatoid factor of multiple sites without organ or systems involvement (4) Hyponatremia SNOMED Code(s): 76059547 Code(s): E87.1 - HYPO-OSMOLALITY AND HYPONATREMIA Status: Acute Current Visit: Yes Annotation/Comment:: Sodium is still low but slowly coming up. Will continue current medications and recheck in am - Problem List Review Problem List Initiated/Reviewed/Updated: Yes - My Orders Last 24 Hours: My Active Orders 05/03/19 10:08 Ondansetron [Zofran ODT] 4 mg PO Q6H PRN 05/03/19 18:00 Docusate Sodium [Colace] 100 mg PO BID 05/04/19 07:30 Pantoprazole [ProTONIX] 40 mg PO ACBREAKFAST 05/04/19 10:46 Meclizine [Antivert] 12.5 mg PO TID PRN 05/04/19 12:00 Fluticasone Propionate [Flonase] See Dose Instructions [place] DAILY - Plan Plan:: 04/29/2019 Patient failed outpatient treatment with oral antibiotics and duoneb treatments. Now with nausea and vomiting, will admit inpatient and start IV antibiotics and IV solumedrol. Recheck labs in the morning. Patient agreed to the plan of care. Discussed with Dr Vela. IV Zofran ordered prn. Xrays ordered of chest and abdomen. Dominique Armijo,LEASING PROPERTY MANAGER 04/30/19 Dane Mendoza MD Feels a little bit better today. Less short of breath. Some mental confusion last night. Did not vomit today. 05/01/19 Dane Mendoza MD Continues to improve. Mycoplasma +. Will change antibiotics to zithromax. Sodium stabilizing off zoloft. Adequate oral intake. Will d/c maintenance IV fluid. 05-02-19 Inga Day PA-C Labs noted. Patient says improving, son says she looks so much better than when admitted. Home meds ordered at [facility] and son will pick out hand - po Zithromax, prednisone and ondansetrom ODT to use prn. Changed Mucinex DM to BID routinely. Patient is ambulating in the hallway. Does get SOB but denies any CP. Hates the hospital bed. Discussed discharge to home tomorrow, cannot qualify for transfer to [facility] status. Discussed the positive mycoplasma, reassurance offered that she was changed to the appropriate antibiotic Zithromax. Gricelda Bolanos-LEGAL INTERNSHIP, her regular provider, will see for the discharge to home in the morning. Son Aime is with now and very supportive, and will be here to transport to home and get settled in tomorrow. 05/03/2019 Patient is not feeling well. Has nausea, sodium still low at 130. Patient feels very weak and tired. WBC still elevated. Will keep the patient and plan for discharge tomorrow. Patient has wheezing which she states just started through the night but relief with nebulizer treatments. Will continue to monitor respiratory status. Patient requires inpatient stay due to hyponatremia, change in respiratory status and now with nausea. Blood pressure elevated, will continue to monitor and patient may need medication changes. Discussed with patient and son, they bother verbalized understanding. Dominique Armijo CNP 05/04/2019 Patient not feeling good today, unsteady on her feet. Having some nausea with changes in positions. Will start Meczline prn and nasal spray. Patient will try to increase fluids. Recheck labs in the morning. Patient leaves by herself and with the weekend, no services available to start and pharmacies are closed. Consulted with Dr Vela. Patient continues to need inpatient stay due to vertigo and nausea. Patient needs to tolerate oral antibiotics. Plan to discharge in the morning. Dominique Armijo CNP
[2019-05-04] MEDS: Fluticasone Propionate Nasal Spray 16 GM Bottle NASBOTH SCH (11:50)
[2019-05-05] MEDS: metroNIDAZOLE/Normal Saline 500 MG in Premix Bag 1 BAG IV SCH (06:28)
[2019-05-05] MEDS: Sodium Chloride 0.9% 10 ML Syringe FLUSH PRN ×2 (06:29→08:22)
[2019-05-05 07:54] LABS: CHLORIDE,CL 96 mmol/L (98-107); SODIUM,NA 132 mmol/L (136-145)
[2019-05-05] MEDS ORDERED: Azithromycin 250 MG Tab PO SCH (08:00)
[2019-05-05] MEDS: Dextromethorphan/guaiFENesin 600-30 MG Tab.ER PO SCH (08:08)
[2019-05-05] MEDS: Docusate Sodium 100 MG Cap PO SCH (08:08)
[2019-05-05] MEDS: Diltiazem 120 MG Cap.CD PO SCH (08:09)
[2019-05-05] MEDS: Metoclopramide 10 MG Tab PO SCH (08:10)
[2019-05-05] MEDS: Lisinopril 10 MG Tab PO SCH (08:11)
[2019-05-05] MEDS: Acetaminophen/HYDROcodone 325-5 MG Tab PO SCH ×2 (08:11→12:15)
[2019-05-05] MEDS: Hydrochlorothiazide/Triamterene 50-75 MG Tab PO SCH (08:12)
[2019-05-05] MEDS: Azithromycin 250 MG Tab PO SCH (08:12)
[2019-05-05] MEDS: Pantoprazole 40 MG Tab.CR PO SCH (08:13)
[2019-05-05] MEDS: Atenolol 25 MG Tab PO SCH (08:14)
[2019-05-05] MEDS: Fluticasone Propionate Nasal Spray 16 GM Bottle NASBOTH SCH (08:14)
[2019-05-05] MEDS: Timolol Maleate 0.5% Ophth Soln 5 ML Bottle EYEBOTH SCH (08:15)
[2019-05-05] MEDS: Brimonidine 0.2% Ophth Soln 5 ML Bottle EYEBOTH SCH (08:15)
[2019-05-05] MEDS: Albuterol/Ipratropium 3.0-0.5 MG/3 ML Neb Soln NEB SCH (08:16)
[2019-05-05] MEDS: methylPREDNISolone Sodium Succinate 40 MG/1 ML SDV IVPUSH SCH (08:19)
[2019-05-05 08:23] VITALS: BP 156/86
[2019-05-05] MEDS: Sodium Chloride 0.9% 10 ML Syringe FLUSH SCH (08:24)
--- NOTE | 2019-05-05 09:18 | PCM.PN ---
- General Info Date of Service: 05/05/19 Admission Dx/Problem (Free Text): Admission Diagnosis/Problem Admission Diagnosis/Problem COPD with acute lower respiratory infection Functional Status: Reports: Tolerating Diet, Ambulating - Review of Systems General: Reports: Weakness HEENT: Reports: No Symptoms Pulmonary: Reports: Cough Cardiovascular: Reports: No Symptoms Gastrointestinal: Reports: No Symptoms Genitourinary: Reports: No Symptoms Musculoskeletal: Reports: No Symptoms Skin: Reports: No Symptoms Neurological: Reports: No Symptoms Psychiatric: Reports: No Symptoms - Patient Data Vitals - Most Recent: Last Vital Signs Temp 97.1 F 05/05/19 08:00 Pulse 92 05/05/19 08:14 Resp 18 05/05/19 08:00 BP 156/86 H 05/05/19 08:14 Pulse Ox 95 05/05/19 08:00 Weight - Most Recent: 205 lb 11.2 oz I&O - Last 24 Hours: Intake & Output 05/04/19 05/05/19 05/05/19 22:59 06:59 14:59 Intake Total 50 Output Total 300 650 Balance -300 -600 Lab Results Last 24 Hours: Laboratory Results - last 24 hr 05/05/19 05/05/19 Range/Units 07:25 07:25 WBC 16.3 H (4.0-10.2) K/uL RBC 4.11 (3.77-5.09) M/uL Hgb 13.8 (11.7-15.5) g/dL Hct 39.0 (34.0-46.0) % MCV 94.9 (84.0-98.0) fL MCH 33.6 H (28.2-33.3) pg MCHC 35.4 (31.7-36.0) g/dL RDW 12.3 (11.2-14.1) % Plt Count 283 (150-350) K/uL Neut % (Auto) 60.2 (45.0-80.0) % Lymph % (Auto) 19.6 (10.0-50.0) % [place] % (Auto) 19.1 H (2.0-14.0) % Eos % (Auto) 0.1 (0.0-5.0) % Baso % (Auto) 1.0 (0.0-2.0) % Neut # (Auto) 9.79 H (1.40-7.00) K/uL Lymph # (Auto) 3.18 (0.50-3.50) K/uL [place] # (Auto) 3.10 H (0.00-1.00) K/uL Eos # (Auto) 0.02 (0.00-0.50) K/uL Baso # (Auto) 0.16 (0.00-0.20) K/uL Sodium 132 L (136-145) mmol/L Potassium 3.9 (3.5-5.1) mmol/L Chloride 96 L (98-107) mmol/L Carbon Dioxide 26.9 (21.0-32.0) mmol/L BUN 23 H (7-18) mg/dL Creatinine 0.75 (0.51-1.17) mg/dL Est Cr Clr Drug Dosing 39.39 mL/min Estimated GFR (MDRD) > 60 mL/min Glucose 115 H (74-106) mg/dL Calcium 9.1 (8.5-10.1) mg/dL Med Orders - Current: Current Medications Acetaminophen (Tylenol) 650 mg PO Q3H PRN PRN Reason: Headache/Pain Last Admin: 05/01/19 04:19 Dose: 650 mg Hydrocodone Bitart/Acetaminophen ([place] 325-5 Mg) 1 tab PO QID@08,12,18,21 [facility] Last Admin: 05/05/19 08:11 Dose: 1 tab Albuterol/Ipratropium (Duoneb 3.0-0.5 Mg/3 Ml) 3 ml NEB Q4HRRT PRN PRN Reason: Dyspnea Albuterol/Ipratropium (Duoneb 3.0-0.5 Mg/3 Ml) 3 ml NEB QIDRT [facility] Last Admin: 05/05/19 08:16 Dose: 3 ml Atenolol (Tenormin) 25 mg PO DAILY [facility] Last Admin: 05/05/19 08:14 Dose: 25 mg Azithromycin (Zithromax) 500 mg PO DAILY [facility] Last Admin: 05/05/19 08:12 Dose: 500 mg Brimonidine Tartrate (Alphagan 0.2% Ophth Soln) 0 ml EYEBOTH Q12HR [facility] Last Admin: 05/05/19 08:15 Dose: 1 drop Diltiazem HCl (Cardizem Cd) 240 mg PO DAILY [facility] Last Admin: 05/05/19 08:09 Dose: 240 mg Docusate Sodium (Colace) 100 mg PO BID [facility] Last Admin: 05/05/19 08:08 Dose: 100 mg Fluticasone Propionate (Flonase) 0 gm NASBOTH DAILY [facility] Last Admin: 05/05/19 08:14 Dose: 1 spray Guaifenesin (Mucinex) 600 mg PO DAILY PRN PRN Reason: Cough Last Admin: 05/02/19 08:50 Dose: 600 mg Guaifenesin/Dextromethorphan (Mucinex Dm Er 600-30 Mg) 1 tab PO BID [facility] Last Admin: 05/05/19 08:08 Dose: 1 tab Hydroxyzine HCl (Vistaril) 25 mg IM Q4H PRN PRN Reason: Nausea/Vomiting Metronidazole 500 mg/ Premix 100 mls @ 100 mls/hr IV Q8H [facility] Last Admin: 05/05/19 06:28 Dose: 100 mls/hr Lisinopril (Prinivil) 10 mg PO DAILY [facility] Last Admin: 05/05/19 08:11 Dose: 10 mg Meclizine HCl (Antivert) 12.5 mg PO TID PRN PRN Reason: Dizziness Last Admin: 05/04/19 11:49 Dose: 12.5 mg Methylprednisolone Sodium Succinate (Solu-Medrol) 40 mg IVPUSH DAILY [facility] Last Admin: 05/05/19 08:19 Dose: 40 mg Metoclopramide HCl (Reglan) 5 mg PO DAILY [facility] Last Admin: 05/05/19 08:10 Dose: 5 mg Ondansetron HCl (Zofran Odt) 4 mg PO Q6H PRN PRN Reason: Nausea/Vomiting Pantoprazole Sodium (Protonix) 40 mg PO ACBREAKFAST [facility] Last Admin: 05/05/19 08:13 Dose: 40 mg Pharmacy Consult (Consult To Pharmacy) 1 each .XX ASDIRECTED [facility] Sodium Chloride (Saline Flush) 10 ml FLUSH ASDIRECTED PRN PRN Reason: Keep Vein Open Last Admin: 05/05/19 08:22 Dose: 10 ml Sodium Chloride (Saline Flush) 10 ml FLUSH Q12HR [facility] Last Admin: 05/05/19 08:24 Dose: Not Given Temazepam (Restoril) 15 mg PO BEDTIME PRN PRN Reason: Insomnia Last Admin: 05/02/19 23:45 Dose: 15 mg Timolol Maleate (Timoptic 0.5% Ophth Soln) 0 ml EYEBOTH Q12HR [facility] Last Admin: 05/05/19 08:15 Dose: 1 drop Triamterene/HCTZ (Maxzide 50-75 Mg) 0.5 each PO DAILY [facility] Last Admin: 05/05/19 08:12 Dose: 0.5 each Discontinued Medications Albuterol/Ipratropium (Duoneb 3.0-0.5 Mg/3 Ml) 3 ml NEB Q4HRRT [facility] Last Admin: 04/29/19 15:38 Dose: 3 ml Azithromycin (Zithromax) 500 mg PO DAILY [facility] Docusate Sodium (Colace) 100 mg PO DAILY [facility] Last Admin: 05/03/19 08:22 Dose: 100 mg Enoxaparin Sodium (Lovenox) 30 mg SUBCUT Q24H [facility] Last Admin: 04/30/19 09:14 Dose: 30 mg Folic Acid (Folic Acid) 1 mg PO BEDTIME [facility] Guaifenesin (Mucinex) 600 mg PO DAILY [facility] Hydroxyzine HCl (Vistaril) 25 mg IM ONETIME ONE Stop: 04/29/19 17:21 Last Admin: 04/29/19 17:35 Dose: 25 mg Levofloxacin/Dextrose 500 mg/ (Premix) 100 mls @ 100 mls/hr IV Q24H [facility] Last Admin: 05/01/19 15:53 Dose: Not Given Sodium Chloride (Normal Saline) 1,000 mls @ 50 mls/hr IV ASDIRECTED [facility] Last Admin: 05/01/19 11:02 Dose: 50 mls/hr Azithromycin 500 mg/ Sodium (Chloride) 250 mls @ 250 mls/hr IV DAILY [facility] Stop: 05/04/19 08:59 Azithromycin 500 mg/ Sodium (Chloride) 250 mls @ 250 mls/hr IV ONETIME ONE Stop: 05/01/19 16:59 Last Admin: 05/01/19 16:05 Dose: 250 mls/hr Azithromycin 500 mg/ Sodium (Chloride) 250 mls @ 250 mls/hr IV DAILY@1200 [facility] Stop: 05/03/19 12:59 Last Admin: 05/03/19 12:11 Dose: 250 mls/hr Lovastatin (Mevacor) 40 mg PO BEDTIME [facility] Methylprednisolone Sodium Succinate (Solu-Medrol) 40 mg IVPUSH Q12H [facility] Last Admin: 04/29/19 14:16 Dose: 40 mg Methylprednisolone Sodium Succinate (Solu-Medrol) 40 mg IVPUSH Q12HR [facility] Last Admin: 04/30/19 21:08 Dose: 40 mg Ondansetron HCl (Zofran) 4 mg IVPUSH Q6H PRN PRN Reason: Nausea/Vomiting Last Admin: 04/30/19 06:34 Dose: 4 mg Pantoprazole Sodium (Protonix Iv) 40 mg IVPUSH DAILY [facility] Last Admin: 05/03/19 08:21 Dose: 40 mg Sertraline HCl (Zoloft) 25 mg PO DAILY [facility] Last Admin: 04/30/19 10:10 Dose: Not Given Vit C/Vit E/Zinc/Copper/Lutein (Ocuvite Lutein) 1 each PO DAILY [facility] - Exam Quality Assessment: DVT Prophylaxis General: Alert, Oriented, Cooperative, No Acute Distress HEENT: Pupils Equal, Pupils Reactive, EOMI, Mucous Membr. Moist/[place] Neck: Supple, Trachea Midline, No JVD Lungs: Normal Respiratory Effort, Decreased Breath Sounds, Crackles (scattered crackles to right lower base) Cardiovascular: Regular Rate, Regular Rhythm, No Murmurs GI/Abdominal Exam: Normal Bowel Sounds, Soft, Non-Tender, No Organomegaly Back Exam: Normal Inspection Extremities: Normal Inspection, Normal Range of Motion, Non-Tender, No Pedal Edema, Normal Capillary Refill Peripheral Pulses: 1+: Dorsalis Pedis (L), Dorsalis Pedis (R) Skin: Warm, Dry, Intact Neurological: No New Focal Deficit Psy/Mental Status: Alert, Normal Affect, Normal Mood - Problem List & Annotations (1) COPD (chronic obstructive pulmonary disease) SNOMED Code(s): 97875526 Code(s): J44.9 - CHRONIC OBSTRUCTIVE PULMONARY DISEASE, UNSPECIFIED Status : Chronic Priority: Medium Current Visit: No Qualifiers: COPD type: COPD with acute exacerbation Qualified Code(s): J44.1 - Chronic obstructive pulmonary disease with (acute) exacerbation (2) Nausea & vomiting SNOMED Code(s): 01347501 Code(s): R11.2 - NAUSEA WITH VOMITING, UNSPECIFIED Status: Acute Current Visit: Yes Qualifiers: Vomiting type: cyclical vomiting Vomiting Intractability: intractable Qualified Code(s): G43.A1 - Cyclical vomiting, intractable (3) Rheumatoid arthritis SNOMED Code(s): 99255192 Code(s): M06.9 - RHEUMATOID ARTHRITIS, UNSPECIFIED Status: Acute Current Visit: Yes Qualifiers: Rheumatoid arthritis location: multiple sites Rheumatoid factor presence: with rheumatoid factor Qualified Code(s): M05.79 - Rheumatoid arthritis with rheumatoid factor of multiple sites without organ or systems involvement (4) Hyponatremia SNOMED Code(s): 04980995 Code(s): E87.1 - HYPO-OSMOLALITY AND HYPONATREMIA Status: Acute Current Visit: Yes Annotation/Comment:: Sodium is still low but slowly coming up. Will continue current medications and recheck in am - Problem List Review Problem List Initiated/Reviewed/Updated: Yes - My Orders Last 24 Hours: My Active Orders 05/04/19 10:46 Meclizine [Antivert] 12.5 mg PO TID PRN 05/04/19 12:00 Fluticasone Propionate [Flonase] See Dose Instructions [facility] - Plan Plan:: 04/29/2019 Patient failed outpatient treatment with oral antibiotics and duoneb treatments. Now with nausea and vomiting, will admit inpatient and start IV antibiotics and IV solumedrol. Recheck labs in the morning. Patient agreed to the plan of care. Discussed with Dr Vela. IV Zofran ordered prn. Xrays ordered of chest and abdomen. Dominique Armijo,BANKRUPTCY LEGAL ASSISTANT 04/30/19 Dane Mendoza MD Feels a little bit better today. Less short of breath. Some mental confusion last night. Did not vomit today. 05/01/19 Dane Mendoza MD Continues to improve. Mycoplasma +. Will change antibiotics to zithromax. Sodium stabilizing off zoloft. Adequate oral intake. Will d/c maintenance IV fluid. 05-02-19 Inga Day PA-C Labs noted. Patient says improving, son says she looks so much better than when admitted. Home meds ordered at [facility] and son will nut picker - po Zithromax, prednisone and ondansetrom ODT to use prn. Changed Mucinex DM to BID routinely. Patient is ambulating in the hallway. Does get SOB but denies any CP. Hates the hospital bed. Discussed discharge to home tomorrow, cannot qualify for transfer to [facility] status. Discussed the positive mycoplasma, reassurance offered that she was changed to the appropriate antibiotic Zithromax. Gricelda Bolanos-CIVIL ENGINEERING PROFESSOR, her regular provider, will see for the discharge to home in the morning. Son Aime is with now and very supportive, and will be here to transport to home and get settled in tomorrow. 05/03/2019 Patient is not feeling well. Has nausea, sodium still low at 130. Patient feels very weak and tired. WBC still elevated. Will keep the patient and plan for discharge tomorrow. Patient has wheezing which she states just started through the night but relief with nebulizer treatments. Will continue to monitor respiratory status. Patient requires inpatient stay due to hyponatremia, change in respiratory status and now with nausea. Blood pressure elevated, will continue to monitor and patient may need medication changes. Discussed with patient and son, they bother verbalized understanding. Dominique Armijo CNP 05/04/2019 Patient not feeling good today, unsteady on her feet. Having some nausea with changes in positions. Will start Meczline prn and nasal spray. Patient will try to increase fluids. Recheck labs in the morning. Patient leaves by herself and with the weekend, no services available to start and pharmacies are closed. Consulted with Dr Vela. Patient continues to need inpatient stay due to vertigo and nausea. Patient needs to tolerate oral antibiotics. Plan to discharge in the morning. Dominique Armijo CNP 05/05/2019 Patient is feeling better and ready to go home. Having some loose stools most likely due to oral antibiotics. Labs reviewed. Will send home with home health nursing. Dominique Armijo CNP
--- NOTE | 2019-05-05 09:43 | PCM.DCSUM1 ---
Discharge Summary - Hospital Course Free Text/Narrative:: Patient was admitted after outpatient failure for the treatment of COPD and pneumonia. Patient had extended stay due to hyponatremia, nausea and abnormal labs. - Discharge Data Discharge Date: 05/05/19 Discharge Disposition: Home, W Home Health Agency 06 Condition: Good - Discharge Diagnosis/Problem(s) (1) COPD (chronic obstructive pulmonary disease) SNOMED Code(s): 25555615 ICD Code: J44.9 - CHRONIC OBSTRUCTIVE PULMONARY DISEASE, UNSPECIFIED Status : Chronic Priority: Medium Current Visit: No Qualifiers: COPD type: COPD with acute exacerbation Qualified Code(s): J44.1 - Chronic obstructive pulmonary disease with (acute) exacerbation (2) Nausea & vomiting SNOMED Code(s): 42130778 ICD Code: R11.2 - NAUSEA WITH VOMITING, UNSPECIFIED Status: Acute Current Visit: Yes Qualifiers: Vomiting type: cyclical vomiting Vomiting Intractability: intractable Qualified Code(s): G43.A1 - Cyclical vomiting, intractable (3) Rheumatoid arthritis SNOMED Code(s): 49975081 ICD Code: M06.9 - RHEUMATOID ARTHRITIS, UNSPECIFIED Status: Acute Current Visit: Yes Qualifiers: Rheumatoid arthritis location: multiple sites Rheumatoid factor presence: with rheumatoid factor Qualified Code(s): M05.79 - Rheumatoid arthritis with rheumatoid factor of multiple sites without organ or systems involvement (4) Hyponatremia SNOMED Code(s): 68427675 ICD Code: E87.1 - HYPO-OSMOLALITY AND HYPONATREMIA Status: Acute Current Visit: Yes Problem Details: Sodium is still low but slowly coming up. Will continue current medications and recheck in am - Patient Summary/Data Consults: Consultations 04/29/19 12:49 OT Evaluation and Treatment [CONS] Routine PT Evaluation and Treatment [CONS] Routine - Patient Instructions Diet: Regular Diet as Tolerated Activity: As Tolerated Driving: Do Not Drive Showering/Bathing: May Shower Notify Provider of: Fever, Nausea and/or Vomiting - Discharge Plan *PRESCRIPTION DRUG MONITORING PROGRAM REVIEWED*: Yes *COPY OF PRESCRIPTION DRUG MONITORING REPORT IN PATIENT MASHA: No Prescriptions/Med Rec: Azithromycin [Zithromax] 500 mg PO DAILY #5 tablet Home Medications: Home Meds Atenolol [Tenormin] 1 tab PO DAILY 11/05/14 [History] Diltiazem [Cardizem CD] 1 tab PO DAILY 11/05/14 [History] Hydrocodone/Acetaminophen [Hydrocodon-Acetaminophen 5-325] 1 - 2 tab PO QID@08, 12,18,21 11/05/14 [History] Lisinopril 10 mg PO DAILY 11/05/14 [History] Lovastatin 40 mg PO BEDTIME 11/05/14 [History] Folic Acid 1 mg PO BEDTIME 05/04/16 [History] Metoclopramide [Reglan] 5 mg PO DAILY 05/04/16 [History] Mv-Mn/FA/Vit K/Lycop/Lut/Zeaxa [Ocuvite Eye + Multi Tablet] 1 cap PO DAILY 05/04 [History] Triamterene/Hydrochlorothiazid [Triamterene-HCTZ 37.5-25 MG] 1 tab PO DAILY [History] Albuterol/Ipratropium [DuoNeb 3.0-0.5 MG/3 ML] 1 vial INH Q4H PRN 04/29/19 [ History] Brimonidine Tartrate/Timolol [Combigan 0.2%-0.5% Eye Drops] 1 drop EYEBOTH DAILY 04/29/19 [History] Cyanocobalamin (Vitamin B12) [Vitamin B12] 1,000 mcg IM Q30D 04/29/19 [History] Docusate Sodium [Colace] 100 mg PO DAILY 04/29/19 [History] Hydrocodone/Acetaminophen [Hydrocodon-Acetaminophen 5-325] 1 tab PO ASDIRECTED PRN 04/29/19 [History] Ranitidine [Zantac] 150 mg PO QAM 04/29/19 [History] Albuterol/Ipratropium [DuoNeb 3.0-0.5 MG/3 ML] 3 ml NEB Q4HRRT PRN neb [Rx] Azithromycin [Zithromax] 500 mg PO DAILY #5 tablet 05/05/19 [Rx] Brimonidine [Alphagan 0.2% Ophth Soln] 0 ml EYEBOTH Q12HR bottle 05/05/19 [Rx] Dextromethorphan/guaiFENesin [Mucinex DM ER 600-30 MG] 1 tab PO BID tab.er 11/23 [Rx] Fluticasone Propionate [Flonase] 1 puff NASBOTH DAILY PRN bottle 05/05/19 [Rx] Ondansetron [Zofran ODT] 4 mg PO Q6H PRN tab.dis 05/05/19 [Rx] Timolol Maleate [Timoptic 0.5% Ophth Soln] 0 ml EYEBOTH Q12HR bottle 05/05/19 [ Rx] guaiFENesin [Mucinex] 600 mg PO DAILY PRN tab.er 05/05/19 [Rx] predniSONE [Prednisone] 10 mg PO ASDIRECTED #14 05/05/19 [Rx] Oxygen Therapy Mode: Room Air Patient Handouts: Chronic Obstructive Pulmonary Disease, Nausea and Vomiting, Adult - Discharge Summary/Plan Comment DC Time >30 min.: No Discharge Summary/Plan Comment: Patient will be discharged with Home Health has had [facility] in the past, would like to stay with [facility] Home Health Nurse to draw follow up labs. Patient requires home care as she is home bound and has had multiple medication changes and will need nursing to set up and monitor the patient. Dr Vela to oversee the Home Health services. Dominique Armijo CNP - Patient Data Vitals - Most Recent: Last Vital Signs Temp 97.1 F 05/05/19 08:00 Pulse 92 05/05/19 08:14 Resp 18 05/05/19 08:00 BP 156/86 H 05/05/19 08:14 Pulse Ox 95 05/05/19 08:00 Weight - Most Recent: 205 lb 11.2 oz I&O - Last 24 hours: Intake & Output 05/04/19 05/05/19 05/05/19 22:59 06:59 14:59 Intake Total 50 Output Total 300 650 Balance -300 -600 Lab Results - Last 24 hrs: Laboratory Results - last 24 hr 05/05/19 05/05/19 Range/Units 07:25 07:25 WBC 16.3 H (4.0-10.2) K/uL RBC 4.11 (3.77-5.09) M/uL Hgb 13.8 (11.7-15.5) g/dL Hct 39.0 (34.0-46.0) % MCV 94.9 (84.0-98.0) fL MCH 33.6 H (28.2-33.3) pg MCHC 35.4 (31.7-36.0) g/dL RDW 12.3 (11.2-14.1) % Plt Count 283 (150-350) K/uL Neut % (Auto) 60.2 (45.0-80.0) % Lymph % (Auto) 19.6 (10.0-50.0) % [place] % (Auto) 19.1 H (2.0-14.0) % Eos % (Auto) 0.1 (0.0-5.0) % Baso % (Auto) 1.0 (0.0-2.0) % Neut # (Auto) 9.79 H (1.40-7.00) K/uL Lymph # (Auto) 3.18 (0.50-3.50) K/uL [place] # (Auto) 3.10 H (0.00-1.00) K/uL Eos # (Auto) 0.02 (0.00-0.50) K/uL Baso # (Auto) 0.16 (0.00-0.20) K/uL Sodium 132 L (136-145) mmol/L Potassium 3.9 (3.5-5.1) mmol/L Chloride 96 L (98-107) mmol/L Carbon Dioxide 26.9 (21.0-32.0) mmol/L BUN 23 H (7-18) mg/dL Creatinine 0.75 (0.51-1.17) mg/dL Est Cr Clr Drug Dosing 39.39 mL/min Estimated GFR (MDRD) > 60 mL/min Glucose 115 H (74-106) mg/dL Calcium 9.1 (8.5-10.1) mg/dL Med Orders - Current: Current Medications Acetaminophen (Tylenol) 650 mg PO Q3H PRN PRN Reason: Headache/Pain Last Admin: 05/01/19 04:19 Dose: 650 mg Hydrocodone Bitart/Acetaminophen ([place] 325-5 Mg) 1 tab PO QID@08,12,18,21 [facility] Last Admin: 05/05/19 08:11 Dose: 1 tab Albuterol/Ipratropium (Duoneb 3.0-0.5 Mg/3 Ml) 3 ml NEB Q4HRRT PRN PRN Reason: Dyspnea Albuterol/Ipratropium (Duoneb 3.0-0.5 Mg/3 Ml) 3 ml NEB QIDRT [facility] Last Admin: 05/05/19 08:16 Dose: 3 ml Atenolol (Tenormin) 25 mg PO DAILY [facility] Last Admin: 05/05/19 08:14 Dose: 25 mg Azithromycin (Zithromax) 500 mg PO DAILY [facility] Last Admin: 05/05/19 08:12 Dose: 500 mg Brimonidine Tartrate (Alphagan 0.2% Ophth Soln) 0 ml EYEBOTH Q12HR [facility] Last Admin: 05/05/19 08:15 Dose: 1 drop Diltiazem HCl (Cardizem Cd) 240 mg PO DAILY [facility] Last Admin: 05/05/19 08:09 Dose: 240 mg Docusate Sodium (Colace) 100 mg PO BID [facility] Last Admin: 05/05/19 08:08 Dose: 100 mg Fluticasone Propionate (Flonase) 0 gm NASBOTH DAILY [facility] Last Admin: 05/05/19 08:14 Dose: 1 spray Guaifenesin (Mucinex) 600 mg PO DAILY PRN PRN Reason: Cough Last Admin: 05/02/19 08:50 Dose: 600 mg Guaifenesin/Dextromethorphan (Mucinex Dm Er 600-30 Mg) 1 tab PO BID [facility] Last Admin: 05/05/19 08:08 Dose: 1 tab Hydroxyzine HCl (Vistaril) 25 mg IM Q4H PRN PRN Reason: Nausea/Vomiting Metronidazole 500 mg/ Premix 100 mls @ 100 mls/hr IV Q8H [facility] Last Admin: 05/05/19 06:28 Dose: 100 mls/hr Lisinopril (Prinivil) 10 mg PO DAILY [facility] Last Admin: 05/05/19 08:11 Dose: 10 mg Meclizine HCl (Antivert) 12.5 mg PO TID PRN PRN Reason: Dizziness Last Admin: 05/04/19 11:49 Dose: 12.5 mg Methylprednisolone Sodium Succinate (Solu-Medrol) 40 mg IVPUSH DAILY [facility] Last Admin: 05/05/19 08:19 Dose: 40 mg Metoclopramide HCl (Reglan) 5 mg PO DAILY [facility] Last Admin: 05/05/19 08:10 Dose: 5 mg Ondansetron HCl (Zofran Odt) 4 mg PO Q6H PRN PRN Reason: Nausea/Vomiting Pantoprazole Sodium (Protonix) 40 mg PO ACBREAKFAST [facility] Last Admin: 05/05/19 08:13 Dose: 40 mg Pharmacy Consult (Consult To Pharmacy) 1 each .XX ASDIRECTED [facility] Sodium Chloride (Saline Flush) 10 ml FLUSH ASDIRECTED PRN PRN Reason: Keep Vein Open Last Admin: 05/05/19 08:22 Dose: 10 ml Sodium Chloride (Saline Flush) 10 ml FLUSH Q12HR [facility] Last Admin: 05/05/19 08:24 Dose: Not Given Temazepam (Restoril) 15 mg PO BEDTIME PRN PRN Reason: Insomnia Last Admin: 05/02/19 23:45 Dose: 15 mg Timolol Maleate (Timoptic 0.5% Ophth Soln) 0 ml EYEBOTH Q12HR [facility] Last Admin: 05/05/19 08:15 Dose: 1 drop Triamterene/HCTZ (Maxzide 50-75 Mg) 0.5 each PO DAILY [facility] Last Admin: 05/05/19 08:12 Dose: 0.5 each Discontinued Medications Albuterol/Ipratropium (Duoneb 3.0-0.5 Mg/3 Ml) 3 ml NEB Q4HRRT [facility] Last Admin: 04/29/19 15:38 Dose: 3 ml Azithromycin (Zithromax) 500 mg PO DAILY [facility] Docusate Sodium (Colace) 100 mg PO DAILY [facility] Last Admin: 05/03/19 08:22 Dose: 100 mg Enoxaparin Sodium (Lovenox) 30 mg SUBCUT Q24H [facility] Last Admin: 04/30/19 09:14 Dose: 30 mg Folic Acid (Folic Acid) 1 mg PO BEDTIME [facility] Guaifenesin (Mucinex) 600 mg PO DAILY [facility] Hydroxyzine HCl (Vistaril) 25 mg IM ONETIME ONE Stop: 04/29/19 17:21 Last Admin: 04/29/19 17:35 Dose: 25 mg Levofloxacin/Dextrose 500 mg/ (Premix) 100 mls @ 100 mls/hr IV Q24H [facility] Last Admin: 05/01/19 15:53 Dose: Not Given Sodium Chloride (Normal Saline) 1,000 mls @ 50 mls/hr IV ASDIRECTED [facility] Last Admin: 05/01/19 11:02 Dose: 50 mls/hr Azithromycin 500 mg/ Sodium (Chloride) 250 mls @ 250 mls/hr IV DAILY [facility] Stop: 05/04/19 08:59 Azithromycin 500 mg/ Sodium (Chloride) 250 mls @ 250 mls/hr IV ONETIME ONE Stop: 05/01/19 16:59 Last Admin: 05/01/19 16:05 Dose: 250 mls/hr Azithromycin 500 mg/ Sodium (Chloride) 250 mls @ 250 mls/hr IV DAILY@1200 [facility] Stop: 05/03/19 12:59 Last Admin: 05/03/19 12:11 Dose: 250 mls/hr Lovastatin (Mevacor) 40 mg PO BEDTIME [facility] Methylprednisolone Sodium Succinate (Solu-Medrol) 40 mg IVPUSH Q12H [facility] Last Admin: 04/29/19 14:16 Dose: 40 mg Methylprednisolone Sodium Succinate (Solu-Medrol) 40 mg IVPUSH Q12HR [facility] Last Admin: 04/30/19 21:08 Dose: 40 mg Ondansetron HCl (Zofran) 4 mg IVPUSH Q6H PRN PRN Reason: Nausea/Vomiting Last Admin: 04/30/19 06:34 Dose: 4 mg Pantoprazole Sodium (Protonix Iv) 40 mg IVPUSH DAILY [facility] Last Admin: 05/03/19 08:21 Dose: 40 mg Sertraline HCl (Zoloft) 25 mg PO DAILY [facility] Last Admin: 04/30/19 10:10 Dose: Not Given Vit C/Vit E/Zinc/Copper/Lutein (Ocuvite Lutein) 1 each PO DAILY [facility]
== END 2019-05-05 13:10 | disposition home health service (06) | DRG 190 ==
LOC: LL.MS 12:36
PROVIDERS: ADMIT Nurse Practitioner Family; ATTEND Family Medicine
DX: J44.0 Chronic obstructive pulmonary disease with (acute) lower respiratory infection (principal); J15.7 Pneumonia due to Mycoplasma pneumoniae; E87.1 Hypo-osmolality and hyponatremia; I42.9 Cardiomyopathy, unspecified; J44.1 Chronic obstructive pulmonary disease with (acute) exacerbation; M05.79 Rheumatoid arthritis with rheumatoid factor of multiple sites without organ or systems involvement; E78.00 Pure hypercholesterolemia, unspecified; K59.09 Other constipation; K21.9 Gastro-esophageal reflux disease without esophagitis; G89.29 Other chronic pain; M19.90 Unspecified osteoarthritis, unspecified site; M54.9 Dorsalgia, unspecified; M54.2 Cervicalgia; M18.0 Bilateral primary osteoarthritis of first carpometacarpal joints; I11.0 Hypertensive heart disease with heart failure; I50.9 Heart failure, unspecified; F41.8 Other specified anxiety disorders; Z79.899 Other long term (current) drug therapy; Z90.49 Acquired absence of other specified parts of digestive tract; Z88.8 Allergy status to other drugs, medicaments and biological substances; Z90.710 Acquired absence of both cervix and uterus
CPT/HCPCS: 36415; 71046; 74019; 80048; 80053; 81001; 82803; 85025; 86140; 86738; 87086; 94640; 97161-GP; A4217; A9270-GY; C9113; J0456; J1650; J1956; J2405; J2920; J3410; J3490; J7030; J7050; J7620-GY

== ENCOUNTER 2019-05-11 16:24 | Inpatient (IN) | payer MEDICARE, BC, MEDICAID, OTHER ==
--- NOTE | 2019-05-11 16:43 | EDM.PDOC ---
ED HPI GENERAL MEDICAL PROBLEM - General Chief Complaint: General Stated Complaint: weakness Time Seen by Provider: 05/11/19 16:28 Source of Information: Reports: Patient History Limitations: Reports: No Limitations - History of Present Illness INITIAL COMMENTS - FREE TEXT/NARRATIVE: Patient returns to ER 6 days after inpatient discharge with complaint of profound fatigue. Had been treated as an outpatient for respiratory complaints with antibiotics and was eventually admitted for IV antibiotics. She received Flagyl as well as Levaquin IV. Eventually discharged home on a Z-Pack. Patient reports that she was tired at time of discharge but felt a bit better for a few days. She then experienced an overwhelming sensation of fatigue and this has been worsening. Symptoms are more pronounced in the mornings, and improve throughout the day comparatively. Difficult for her to perform ADLs. Denies symptoms of active infection, such as fever/chills. Respiratory complaints of shortness of breath/cough have improved. No other acute changes in other symptoms. - Related Data Allergies Allergy/AdvReac Type Severity Reaction Status Date / Time aspirin Allergy Bleeding Verified 05/11/19 17:34 Home Meds: Home Meds Atenolol [Tenormin] 1 tab PO DAILY 11/05/14 [History] Diltiazem [Cardizem CD] 1 tab PO DAILY 11/05/14 [History] Hydrocodone/Acetaminophen [Hydrocodon-Acetaminophen 5-325] 1 - 2 tab PO QID@08, 12,18,21 11/05/14 [History] Lisinopril 10 mg PO DAILY 11/05/14 [History] Lovastatin 40 mg PO QPM 11/05/14 [History] Folic Acid 1 mg PO QPM 05/04/16 [History] Mv-Mn/FA/Vit K/Lycop/Lut/Zeaxa [Ocuvite Eye + Multi Tablet] 1 cap PO DAILY 05/04 [History] Triamterene/Hydrochlorothiazid [Triamterene-HCTZ 37.5-25 MG] 1 tab PO DAILY [History] Albuterol/Ipratropium [DuoNeb 3.0-0.5 MG/3 ML] 1 vial INH Q4H PRN 04/29/19 [ History] Brimonidine Tartrate/Timolol [Combigan 0.2%-0.5% Eye Drops] 1 drop EYEBOTH BID 04/29/19 [History] Cyanocobalamin (Vitamin B12) [Vitamin B12] 1,000 mcg IM Q30D 04/29/19 [History] Docusate Sodium [Colace] 100 mg PO QPM 04/29/19 [History] Hydrocodone/Acetaminophen [Hydrocodon-Acetaminophen 5-325] 1 tab PO ASDIRECTED PRN 04/29/19 [History] Ranitidine [Zantac] 150 mg PO BEDTIME 04/29/19 [History] Ondansetron [Zofran ODT] 4 mg PO Q6H PRN tab.dis 05/05/19 [Rx] guaiFENesin [Mucinex] 600 mg PO DAILY PRN tab.er 05/05/19 [Rx] Fluticasone Propionate [Flonase] 1 puff NASBOTH DAILY 05/11/19 [History] Past Medical History HEENT History: Reports: Allergic Rhinitis, Impaired Vision, Other (See Below) Other HEENT History: Glasses Cardiovascular History: Reports: Afib, Cardiomyopathy, Heart Murmur, High Cholesterol, Hypertension, Pulmonary Hypertension, Other (See Below) Other Cardiovascular History: Moderate cardiomegaly, aortic valve stenosis and mitral valve insufficiency by clinical exam, fatty liver by CT scan Respiratory History: Reports: COPD, Pulmonary Fibrosis, Other (See Below) Other Respiratory History: COPD and pulmonary fibrosis by chest x-ray Gastrointestinal History: Reports: Cholelithiasis, Chronic Constipation, Colon Polyp, Diverticulosis, Gastritis, GERD, GI Bleed, Hiatal Hernia, PUD, Other ( See Below) Other Gastrointestinal History: History of recurrent diverticulitis, tubular adenoma of the ascending colon on 04/18/12, upper GI bleed in the secondary to NSAIDs, cholecystectomy as below Genitourinary History: Reports: UTI, Recurrent [employer] History: Reports: Dysfunctional Uterine Bleeding, Fibroids Musculoskeletal History: Reports: Arthritis, Back Pain, Chronic, Neck Pain, Chronic, Osteoarthritis, Osteoporosis, RA, Other (See Below) Other Musculoskeletal History: Severe scoliosis of the lumbar spine Psychiatric History: Reports: Addiction, Anxiety, Depression Endocrine/Metabolic History: Reports: Osteoporosis Hematologic History: Reports: Anemia, Blood Transfusion(s) Immunologic History: Reports: None Oncologic (Cancer) History: Reports: None Dermatologic History: Reports: None - Infectious Disease History Infectious Disease History: Reports: Chicken Pox, Shingles - Past Surgical History Head Surgeries/Procedures: Reports: None HEENT Surgical History: Reports: Oral Surgery GI Surgical History: Reports: Cholecystectomy, Colonoscopy, EGD, Other (See Below) Female Surgical History: Reports: Hysterectomy, Other (See Below) Neurological Surgical History: Reports: None Musculoskeletal Surgical History: Reports: Knee Replacement - Past Imaging History Past Imaging History: Reports: CAT Scan, Mammogram, Stress Testing, Ultrasound Social & Family History - Family History HEENT: Reports: None Cardiac: Reports: CAD, Hypertension, ID, Other (See Below) Other Cardiac Family History: Maternal uncle with possible fatal ID in his 80s, 2 sons Respiratory: Reports: Asthma GI: Reports: None : Reports: Renal Calculus, Other (See Below) Other Family History: Son with urolithiasis OBGYN: Reports: None Musculoskeletal: Reports: None Neurological: Reports: Cerebral Aneurysms, Other (See Below) Other Neurological Family History: Son with fatal cerebral aneurysm at age 41 Psychiatric: Reports: None Endocrine/Metabolic: Reports: Diabetes, type II, Other (See Below) Other Endocrine/Metabolic Family History: 2 sons with AODM Hematologic: Reports: None Immunologic: Reports: None Dermatologic: Reports: None Oncologic: Reports: Breast, Metastatic, Other (See Below) Other Oncologic Family History: Sister with metastatic breast cancer at age 88 - Tobacco Use Tobacco Use Within Last Twelve Months: No - Caffeine Use Caffeine Use: Reports: Coffee (One cup every 3 days), Soda (2 sodas per day), Tea (One cup every 2 weeks). Denies: Energy Drinks - Alcohol Use Alcohol Use History: No - Living Situation & Occupation Living situation: Reports: , , Alone, Other Occupation: Other ED ROS GENERAL - Review of Systems Review Of Systems: See Below Constitutional: Reports: Weakness, Fatigue. Denies: Fever, Chills, Malaise, Night Sweats, Diaphoresis, Weight Loss, Weight Gain HEENT: Denies: Ear Pain, Rhinitis, Sinus Problem, Throat Pain, Vertigo, Vision Change Respiratory: Denies: Shortness of Breath, Wheezing, Pleuritic Chest Pain, Cough , Sputum, Hemoptysis Cardiovascular: Denies: Chest Pain, Dyspnea on Exertion, Lightheadedness, Palpitations GI/Abdominal: Reports: No Symptoms : Reports: No Symptoms Musculoskeletal: Reports: Other (chronic arthritis pain, unchanged. ) Skin: Denies: Rash Neurological: Reports: Difficulty Walking (fatigued). Denies: Confusion, Dizziness, Headache, Numbness, Paresthesia, Syncope, Tingling, Tremors, Change in Speech, Gait Disturbance Psychiatric: Reports: No Symptoms ED EXAM, GENERAL - Physical Exam Exam: See Below Exam Limited By: No Limitations General Appearance: Alert, No Apparent Distress, Obese Eye Exam: Bilateral Eye: EOMI, PERRL Nose: No: Nasal Deformity, Nasal Swelling, Nasal Drainage Throat/Mouth: Normal Inspection, Normal Lips, Normal Voice, No Airway Compromise Neck: Normal Inspection, Supple, Non-Tender, Full Range of Motion. No: Lymphadenopathy (L), Lymphadenopathy (R) Respiratory/Chest: No Respiratory Distress, Lungs Clear, Normal Breath Sounds, No Accessory Muscle Use, Chest Non-Tender Cardiovascular: Normal Peripheral Pulses, No Murmur, Irregularly Irregular GI/Abdominal: Soft, Non-Tender, No Distention (Female) Exam: Deferred Rectal (Female) Exam: Deferred Back Exam: No: CVA Tenderness (L), CVA Tenderness (R), Muscle Spasm, Paraspinal Tenderness, Vertebral Tenderness Extremities: Non-Tender, Normal Capillary Refill, Other (equal strength bilaterally) Neurological: Alert, Oriented, Normal Cognition, No Motor/Sensory Deficits Psychiatric: Normal Affect, Normal Mood Skin Exam: Warm, Dry, Intact, Normal Color EKG INTERPRETATION EKG Date: 05/11/19 Time: 18:00 Rhythm: A-Fib Rate (Beats/Min): 105 [place]: Normal P-Wave: Absent QRS: Other (incomplete LBBB) ST-T: Other (No changes suggestive of acute ischemia) QT: Normal Comparison: Change From Previous EKG (EKG in 2016 did not show Afib) Course - Vital Signs Last Recorded V/S: Last Vital Signs Temp 36.4 C 05/11/19 16:24 Pulse 68 05/11/19 16:24 Resp 20 05/11/19 16:24 BP 126/73 05/11/19 16:24 Pulse Ox 99 05/11/19 18:00 - Orders/Labs/Meds Orders: Active Orders 24 hr Category Date Time Status EKG Documentation Completion [RC] ASDIRECTED Care 05/11/19 16:43 Active UA W/MICROSCOPIC [URIN] Stat Lab 05/11/19 16:40 Ordered Medication Orders Hydrocodone Bitart/Acetaminophen (Kiefer 325-5 Mg) 1 - 2 tab PO QID@08,,18, HUNTER Albuterol/Ipratropium (Duoneb 3.0-0.5 Mg/3 Ml) 3 ml INH Q4H PRN PRN Reason: Shortness of Breath Atenolol (Tenormin) 25 mg PO DAILY [facility] Brimonidine Tartrate (Alphagan 0.2% Ophth Soln) 0 ml EYEBOTH BID [facility] Coenzyme Q10 (Coenzyme Q10) 100 mg PO DAILY [facility] Diltiazem HCl (Cardizem Cd) 240 mg PO DAILY [facility] Docusate Sodium (Colace) 100 mg PO QPM [facility] Famotidine (Pepcid) 20 mg PO BEDTIME [facility] Fluticasone Propionate (Flonase) 0 gm NASBOTH DAILY [facility] Guaifenesin (Mucinex) 600 mg PO DAILY PRN PRN Reason: Cough Lisinopril (Prinivil) 10 mg PO DAILY [facility] Lovastatin (Mevacor) 40 mg PO QPM [facility] Non-Formulary Medication (Ranitidine [Zantac]) 150 mg PO BEDTIME [facility] Ondansetron HCl (Zofran Odt) 4 mg PO Q6H PRN PRN Reason: Nausea/Vomiting Timolol Maleate (Timoptic 0.5% Ophth Soln) 0 ml EYEBOTH BID [facility] Triamterene/HCTZ (Maxzide 50-75 Mg) 0.5 each PO DAILY [facility] Warfarin Sodium (Coumadin) 5 mg PO ONETIME ONE Stop: 05/11/19 19:37 Labs: Laboratory Tests 05/11/19 Range/Units 16:40 Lactic Acid 1.3 (0.4-2.0) mmol/L Meds: Medications Generic Name Dose Route Start Last Admin Trade Name Freq PRN Reason Stop Dose Admin Hydrocodone Bitart/Acetaminophen 1 - 2 tab 05/11/19 21:00 Kiefer 325-5 Mg PO QID@08,12,18,21 HUNTER Albuterol/Ipratropium 3 ml 05/11/19 18:02 Duoneb 3.0-0.5 Mg/3 Ml INH Q4H PRN Shortness of Breath Atenolol 25 mg 05/12/19 08:00 Tenormin PO DAILY [facility] Brimonidine Tartrate 0 ml 05/12/19 08:00 Alphagan 0.2% Ophth Soln EYEBOTH BID [facility] Coenzyme Q10 100 mg 05/11/19 18:15 Coenzyme Q10 PO DAILY [facility] Diltiazem HCl 240 mg 05/12/19 08:00 Cardizem Cd PO DAILY [facility] Docusate Sodium 100 mg 05/12/19 18:00 Colace PO QPM [facility] Famotidine 20 mg 05/11/19 20:00 Pepcid PO BEDTIME [facility] Fluticasone Propionate 0 gm 05/12/19 08:00 Flonase NASBOTH DAILY [facility] Guaifenesin 600 mg 05/11/19 18:26 Mucinex PO DAILY PRN Cough Lisinopril 10 mg 05/12/19 08:00 Prinivil PO DAILY [facility] Lovastatin 40 mg 05/12/19 18:00 Mevacor PO QPM [facility] Non-Formulary Medication 150 mg 05/11/19 20:00 Ranitidine [Zantac] PO BEDTIME [facility] Ondansetron HCl 4 mg 05/11/19 18:26 Zofran Odt PO Q6H PRN Nausea/Vomiting Timolol Maleate 0 ml 05/12/19 08:00 Timoptic 0.5% Ophth Soln EYEBOTH BID [facility] Triamterene/HCTZ 0.5 each 05/12/19 08:00 Maxzide 50-75 Mg PO DAILY [facility] Warfarin Sodium 5 mg 05/11/19 19:36 Coumadin PO 05/11/19 19:37 ONETIME ONE Discontinued Medications Generic Name Dose Route Start Last Admin Trade Name Freq PRN Reason Stop Dose Admin Hydrocodone Bitart/Acetaminophen 1 tab 05/11/19 18:02 Kiefer 325-5 Mg PO ASDIRECTED PRN Pain Hydrocodone Bitart/Acetaminophen 1 tab 05/11/19 21:00 Kiefer 325-5 Mg PO QID@08,12,18,21 HUNTER Hydrocodone Bitart/Acetaminophen 1 tab 05/11/19 18:26 Kiefer 325-5 Mg PO ASDIRECTED PRN Pain Atenolol 25 mg 05/12/19 08:00 Tenormin PO DAILY [facility] Coenzyme Q10 100 mg 05/11/19 18:15 Coenzyme Q10 PO DAILY [facility] Docusate Sodium 100 mg 05/12/19 18:00 Colace PO QPM [facility] Guaifenesin 600 mg 05/11/19 18:02 Mucinex PO DAILY PRN Cough Lisinopril 10 mg 05/12/19 08:00 Prinivil PO DAILY [facility] Non-Formulary Medication 1 drop 05/12/19 08:00 Brimonidine Tartrate/Timolol [Combigan 0.2%-0.5% Eye Drops] EYEBOTH BID [facility]TER Non-Formulary Medication 1 tab 05/12/19 08:00 Diltiazem [Cardizem Cd] PO DAILY [facility] Non-Formulary Medication 40 mg 05/12/19 18:00 Lovastatin [Lovastatin] PO QPM [facility] Non-Formulary Medication 150 mg 05/11/19 20:00 Ranitidine [Zantac] PO BEDTIME [facility] Non-Formulary Medication 1 tab 05/12/19 08:00 Triamterene/Hydrochlorothiazid [Triamterene-Hctz 37.5-25 Mg] PO DAILY [facility] Ondansetron HCl 4 mg 05/11/19 18:02 Zofran Odt PO Q6H PRN Nausea/Vomiting - Radiology Interpretation Free Text/Narrative:: Xray of chest reviewed by Radiology. Increased atelectasis and consolidation of lower lobes. - Re-Assessments/Exams Free Text/Narrative Re-Assessment/Exam: 05/11/19 18:12 Afib noted on EKG. Fatigue may be related to Afib with RVR. Also may be related to recent treatment with Levaquin as that class of medication has been associated with weakness. Plan is to admit/anticoagulate and continue to monitor. Troponin mildly elevated and this may be related to current Afib. WBC also remains elevated but no obvious focus of infection identified at this point in time. May be stress reaction. Patient noted to have worsening atelectasis/consolidation of lower lobes by Radiology on Xray. She denies fevers /chills and says respiratory complaints greatly improved since discharge. DDImer and BNP elevated. Patient has had elevated DDimer in past. Currently has no chest pain complaints, no complaint of SOB, and room air sats are 99%. When option for CT scan was discussed with the patient and her family they elected to wait for now and reconsider depending on patient's clinical course. Troponin 0.134 Mildly elevated. Suspect secondary to patient's current Afib and CHF. Will continue to follow trends Departure - Departure Time of Disposition: 18:19 Disposition: Admitted As Inpatient 64 Clinical Impression: Weakness Afib Qualifiers: Atrial fibrillation type: unspecified Qualified Code(s): I48.91 - Unspecified atrial fibrillation - Discharge Information *PRESCRIPTION DRUG MONITORING PROGRAM REVIEWED*: Not Applicable *COPY OF PRESCRIPTION DRUG MONITORING REPORT IN PATIENT MASHA: Not Applicable - Problem List & Annotations (1) Afib SNOMED Code(s): 63954016 Code(s): I48.91 - UNSPECIFIED ATRIAL FIBRILLATION Status: Acute Priority : High Current Visit: Yes Annotation/Comment:: Patient says she has history of previous Afib. Will start on Coumadin. May need to consider cardioversion once anticoagulated if patient does not convert on own. Is already on Cardizem Qualifiers: Atrial fibrillation type: unspecified Qualified Code(s): I48.91 - Unspecified atrial fibrillation (2) Weakness SNOMED Code(s): 89349649 Code(s): R53.1 - WEAKNESS Status: Acute Priority: High Current Visit: Yes Annotation/Comment:: Suspect recent weakness secondary to Afib, however cannot rule out it being a secondary effect from recent Levaquin treatment. (3) CHF (congestive heart failure) SNOMED Code(s): 46255187 Code(s): I50.9 - HEART FAILURE, UNSPECIFIED Status: Chronic Priority: Medium Current Visit: Yes Onset Date: 05/04/16 Annotation/Comment:: Has been stable per patient. Qualifiers: Qualified Code(s): I50.9 - Heart failure, unspecified (4) Hyperlipidemia SNOMED Code(s): 99168192 Code(s): E78.5 - HYPERLIPIDEMIA, UNSPECIFIED Status: Chronic Priority: Medium Current Visit: No Annotation/Comment:: Under therapy Qualifiers: Hyperlipidemia type: unspecified Qualified Code(s): E78.5 - Hyperlipidemia , unspecified (5) COPD (chronic obstructive pulmonary disease) SNOMED Code(s): 84924126 Code(s): J44.9 - CHRONIC OBSTRUCTIVE PULMONARY DISEASE, UNSPECIFIED Status : Chronic Priority: Medium Current Visit: No Annotation/Comment:: stable per patient. Qualifiers: COPD type: unspecified COPD Qualified Code(s): J44.9 - Chronic obstructive pulmonary disease, unspecified (6) Peptic reflux disease SNOMED Code(s): 465606083 Code(s): K21.9 - GASTRO-ESOPHAGEAL REFLUX DISEASE WITHOUT ESOPHAGITIS Status: Chronic Priority: Low Current Visit: No Annotation/Comment:: stable per patient (7) Hypertension SNOMED Code(s): 25511805 Code(s): I10 - ESSENTIAL (PRIMARY) HYPERTENSION Status: Chronic Priority : Low Current Visit: No Annotation/Comment:: stable per patient. Observe BP trends Qualifiers: Hypertension type: essential hypertension (8) Mixed anxiety depressive disorder SNOMED Code(s): 266394341 Code(s): F41.8 - OTHER SPECIFIED ANXIETY DISORDERS Status: Acute Priority : Low Current Visit: No Annotation/Comment:: stable per patient (9) Rheumatoid arthritis SNOMED Code(s): 29118112 Code(s): M06.9 - RHEUMATOID ARTHRITIS, UNSPECIFIED Status: Chronic Priority: Medium Current Visit: No Annotation/Comment:: Moderate control with chronic narcotic use as above. No recent changes in pain. Qualifiers: Rheumatoid arthritis location: multiple sites Rheumatoid factor presence: unspecified presence Qualified Code(s): M06.9 - Rheumatoid arthritis, unspecified - Problem List Review Problem List Initiated/Reviewed/Updated: Yes - My Orders Last 24 Hours: My Active Orders 05/11/19 16:40 UA W/MICROSCOPIC [URIN] Stat 05/11/19 16:43 EKG Documentation Completion [RC] ASDIRECTED - Assessment/Plan Admission H&P: Please use this note as an admission H&P Last 24 Hours: My Active Orders 05/11/19 16:40 UA W/MICROSCOPIC [URIN] Stat 05/11/19 16:43 EKG Documentation Completion [RC] ASDIRECTED Assessment:: as above Plan: as above. Anticipate 3-4 days of inpatient stay depending on patient's clinic course.
[2019-05-11] MEDS ORDERED: Albuterol/Ipratropium 3.0-0.5 MG/3 ML Neb Soln INH PRN (18:02)
[2019-05-11] MEDS ORDERED: Ondansetron 4 MG Tab.DIS PO PRN ×2 (18:02→18:26)
[2019-05-11] MEDS ORDERED: Acetaminophen/HYDROcodone 325-5 MG Tab PO PRN ×2 (18:02→18:26)
[2019-05-11] MEDS ORDERED: guaiFENesin 600 MG Tab.ER PO PRN ×2 (18:02→18:26)
[2019-05-11] MEDS ORDERED: Warfarin 5 MG Tab PO ONE (19:36)
[2019-05-11] MEDS ORDERED: Non-Formulary Medication 1 Each (Ranitidine [Zantac] 150 MG) PO SCH ×2 (20:00)
[2019-05-11] MEDS: Acetaminophen/HYDROcodone 325-5 MG Tab PO SCH (20:07)
[2019-05-11] MEDS: Famotidine 20 MG Tab PO SCH (20:08)
[2019-05-11] MEDS ORDERED: Acetaminophen/HYDROcodone 325-5 MG Tab PO SCH (21:00)
[2019-05-11] MEDS ORDERED: Temazepam 15 MG Cap PO PRN (23:49)
[2019-05-12] MEDS: Acetaminophen/HYDROcodone 325-5 MG Tab PO SCH ×4 (07:16→20:56)
[2019-05-12 07:52] LABS: CHLORIDE,CL 99 mmol/L (98-107); SODIUM,NA 134 mmol/L (136-145)
[2019-05-12] MEDS: Diltiazem 120 MG Cap.CD PO SCH (08:00)
[2019-05-12] MEDS ORDERED: Non-Formulary Medication 1 Each (Triamterene/Hydrochlorothiazid [Triamterene-Hctz 37.5-25 PO SCH (08:00)
[2019-05-12] MEDS: Hydrochlorothiazide/Triamterene 50-75 MG Tab PO SCH (08:00)
[2019-05-12] MEDS ORDERED: Lisinopril 10 MG Tab PO SCH (08:00)
[2019-05-12] MEDS ORDERED: Atenolol 25 MG Tab PO SCH (08:00)
[2019-05-12] MEDS ORDERED: DILTIAZEM PO SCH (08:00)
[2019-05-12] MEDS: Lisinopril 10 MG Tab PO SCH (08:01)
[2019-05-12] MEDS: Atenolol 25 MG Tab PO SCH (08:02)
[2019-05-12] MEDS: Fluticasone Propionate Nasal Spray 16 GM Bottle NASBOTH SCH (08:02)
[2019-05-12] MEDS: Furosemide 20 MG/2 ML VIAL IVPUSH SCH (08:02)
[2019-05-12] MEDS: Brimonidine 0.2% Ophth Soln 5 ML Bottle EYEBOTH SCH ×2 (08:03→17:32)
[2019-05-12] MEDS: Timolol Maleate 0.5% Ophth Soln 5 ML Bottle EYEBOTH SCH ×2 (08:03→17:31)
--- NOTE | 2019-05-12 14:13 | PCM.PN ---
- General Info Date of Service: 05/12/19 Admission Dx/Problem (Free Text): Patient admitted for treatment of weakness, afib with RVR. Subjective Update: Patient reports that she feels a bit better today. No new complaints. Functional Status: Reports: Pain Controlled, Tolerating Diet, Ambulating, Urinating. Denies: New Symptoms - Review of Systems General: Reports: Weakness, Fatigue. Denies: Fever, Malaise, Chills, Night Sweats, Appetite HEENT: Denies: Ear Pain, Eye Pain, Sinus Congestion, Sore Throat, Rhinitis, Visual Changes Pulmonary: Reports: No Symptoms. Denies: Shortness of Breath, Pleuritic Chest Pain, Cough, Sputum Cardiovascular: Denies: Chest Pain, Palpitations, Dyspnea on Exertion, Orthopnea , Edema, Lightheadedness Gastrointestinal: Reports: No Symptoms Genitourinary: Reports: No Symptoms Musculoskeletal: Reports: No Symptoms (no acute changes from baseline) Skin: Reports: No Symptoms Neurological: Reports: Weakness (global). Denies: Confusion, Dizziness, Headache, Numbness, Paresthesia, Tingling, Trouble Speaking Psychiatric: Reports: No Symptoms - Patient Data Vitals - Most Recent: Last Vital Signs Temp 36.7 C 05/12/19 08:00 Pulse 59 L 05/12/19 08:02 Resp 19 05/12/19 08:00 BP 143/97 H 05/12/19 08:02 Pulse Ox 97 05/12/19 08:00 Weight - Most Recent: 91.626 kg I&O - Last 24 Hours: Intake & Output 05/11/19 05/12/19 05/12/19 22:59 06:59 14:59 Intake Total 200 120 Output Total 800 425 Balance 200 -800 -305 Lab Results Last 24 Hours: Laboratory Results - last 24 hr 05/11/19 05/11/19 05/11/19 Range/Units 16:40 17:17 17:17 WBC 15.5 H (4.0-10.2) K/uL RBC 4.05 (3.77-5.09) M/uL Hgb 13.3 (11.7-15.5) g/dL Hct 39.0 (34.0-46.0) % MCV 96.3 (84.0-98.0) fL MCH 32.8 (28.2-33.3) pg MCHC 34.1 (31.7-36.0) g/dL RDW 12.6 (11.2-14.1) % Plt Count 214 (150-350) K/uL Add Manual Diff Yes Neutrophils % (Manual) 48 Band Neutrophils % 5 Lymphocytes % (Manual) 34 Atypical Lymphs % Monocytes % (Manual) 13 Absolute Neutrophils 8.2150 Lymphocytes # (Manual) 5.2700 Monocytes # (Manual) 2.0150 PT (9.5-12.0) SEC INR D-Dimer, Quantitative (0-400) ng/mL Sodium 134 L (136-145) mmol/L Potassium 4.8 (3.5-5.1) mmol/L Chloride 97 L (98-107) mmol/L Carbon Dioxide 26.7 (21.0-32.0) mmol/L BUN 28 H (7-18) mg/dL Creatinine 0.91 (0.51-1.17) mg/dL Est Cr Clr Drug Dosing 32.46 mL/min Estimated GFR (MDRD) 59 mL/min Glucose 125 H (74-106) mg/dL Lactic Acid 1.3 (0.4-2.0) mmol/L Calcium 9.1 (8.5-10.1) mg/dL Magnesium 1.8 (1.8-2.4) mg/dL Total Bilirubin 0.7 (0.2-1.0) mg/dL AST 21 (15-37) U/L ALT 43 (12-78) U/L Alkaline Phosphatase 53 (46-116) IU/L Troponin I 0.134 H* (0.000-0.056) ng/mL NT-Pro-B Natriuret Pep 5961 H (0-125) pg/mL Total Protein 7.0 (6.4-8.2) g/dL Albumin 3.2 L (3.4-5.0) g/dL 05/11/19 05/12/19 05/12/19 Range/Units 17:17 07:11 07:11 WBC (4.0-10.2) K/uL RBC (3.77-5.09) M/uL Hgb (11.7-15.5) g/dL Hct (34.0-46.0) % MCV (84.0-98.0) fL MCH (28.2-33.3) pg MCHC (31.7-36.0) g/dL RDW (11.2-14.1) % Plt Count (150-350) K/uL Add Manual Diff Neutrophils % (Manual) Band Neutrophils % Lymphocytes % (Manual) Atypical Lymphs % Monocytes % (Manual) Absolute Neutrophils Lymphocytes # (Manual) Monocytes # (Manual) PT 10.4 (9.5-12.0) SEC INR 1.0 D-Dimer, Quantitative 1750 H (0-400) ng/mL Sodium 134 L (136-145) mmol/L Potassium 4.4 (3.5-5.1) mmol/L Chloride 99 (98-107) mmol/L Carbon Dioxide 24.3 (21.0-32.0) mmol/L BUN 22 H (7-18) mg/dL Creatinine 0.81 (0.51-1.17) mg/dL Est Cr Clr Drug Dosing 36.47 mL/min Estimated GFR (MDRD) > 60 mL/min Glucose 110 H (74-106) mg/dL Lactic Acid (0.4-2.0) mmol/L Calcium 8.9 (8.5-10.1) mg/dL Magnesium (1.8-2.4) mg/dL Total Bilirubin (0.2-1.0) mg/dL AST (15-37) U/L ALT (12-78) U/L Alkaline Phosphatase (46-116) IU/L Troponin I 0.099 H* (0.000-0.056) ng/mL NT-Pro-B Natriuret Pep (0-125) pg/mL Total Protein (6.4-8.2) g/dL Albumin (3.4-5.0) g/dL 05/12/19 Range/Units 07:11 WBC 14.5 H (4.0-10.2) K/uL RBC 3.84 (3.77-5.09) M/uL Hgb 12.8 (11.7-15.5) g/dL Hct 37.3 (34.0-46.0) % MCV 97.1 (84.0-98.0) fL MCH 33.3 (28.2-33.3) pg MCHC 34.3 (31.7-36.0) g/dL RDW 12.7 (11.2-14.1) % Plt Count 219 (150-350) K/uL Add Manual Diff Yes Neutrophils % (Manual) 52 Band Neutrophils % 2 Lymphocytes % (Manual) 24 Atypical Lymphs % 10 Monocytes % (Manual) 12 Absolute Neutrophils 7.8300 Lymphocytes # (Manual) 4.9300 Monocytes # (Manual) 1.7400 PT (9.5-12.0) SEC INR D-Dimer, Quantitative (0-400) ng/mL Sodium (136-145) mmol/L Potassium (3.5-5.1) mmol/L Chloride (98-107) mmol/L Carbon Dioxide (21.0-32.0) mmol/L BUN (7-18) mg/dL Creatinine (0.51-1.17) mg/dL Est Cr Clr Drug Dosing mL/min Estimated GFR (MDRD) mL/min Glucose (74-106) mg/dL Lactic Acid (0.4-2.0) mmol/L Calcium (8.5-10.1) mg/dL Magnesium (1.8-2.4) mg/dL Total Bilirubin (0.2-1.0) mg/dL AST (15-37) U/L ALT (12-78) U/L Alkaline Phosphatase (46-116) IU/L Troponin I (0.000-0.056) ng/mL NT-Pro-B Natriuret Pep (0-125) pg/mL Total Protein (6.4-8.2) g/dL Albumin (3.4-5.0) g/dL Med Orders - Current: Current Medications Hydrocodone Bitart/Acetaminophen ([place] 325-5 Mg) 1 - 2 tab PO QID@08,12,18,21 [facility] Last Admin: 05/12/19 12:06 Dose: 1 tab Albuterol/Ipratropium (Duoneb 3.0-0.5 Mg/3 Ml) 3 ml INH Q4H PRN PRN Reason: Shortness of Breath Atenolol (Tenormin) 25 mg PO DAILY [facility] Last Admin: 05/12/19 08:02 Dose: 25 mg Brimonidine Tartrate (Alphagan 0.2% Ophth Soln) 0 ml EYEBOTH BID [facility] Last Admin: 05/12/19 08:03 Dose: 1 drop Coenzyme Q10 (Coenzyme Q10) 100 mg PO DAILY [facility] Last Admin: 05/12/19 08:01 Dose: 100 mg Diltiazem HCl (Cardizem Cd) 240 mg PO DAILY [facility] Last Admin: 05/12/19 08:00 Dose: 240 mg Diltiazem HCl (Cardizem Cd) 120 mg PO DAILY [facility] Docusate Sodium (Colace) 100 mg PO QPM [facility] Famotidine (Pepcid) 20 mg PO BEDTIME [facility] Last Admin: 05/11/19 20:08 Dose: 20 mg Fluticasone Propionate (Flonase) 0 gm NASBOTH DAILY [facility] Last Admin: 05/12/19 08:02 Dose: 1 spray Furosemide (Lasix) 20 mg IVPUSH DAILY [facility] Last Admin: 05/12/19 08:02 Dose: 20 mg Guaifenesin (Mucinex) 600 mg PO DAILY PRN PRN Reason: Cough Lisinopril (Prinivil) 10 mg PO DAILY [facility] Last Admin: 05/12/19 08:01 Dose: 10 mg Lovastatin (Mevacor) 40 mg PO QPM [facility] Ondansetron HCl (Zofran Odt) 4 mg PO Q6H PRN PRN Reason: Nausea/Vomiting Last Admin: 05/11/19 20:14 Dose: 4 mg Temazepam (Restoril) 15 mg PO BEDTIME PRN PRN Reason: Insomnia Last Admin: 05/11/19 23:57 Dose: 15 mg Timolol Maleate (Timoptic 0.5% Ophth Soln) 0 ml EYEBOTH BID [facility] Last Admin: 05/12/19 08:03 Dose: 1 drop Triamterene/HCTZ (Maxzide 50-75 Mg) 0.5 each PO DAILY [facility] Last Admin: 05/12/19 08:00 Dose: 0.5 each Discontinued Medications Hydrocodone Bitart/Acetaminophen ([place] 325-5 Mg) 1 tab PO ASDIRECTED PRN PRN Reason: Pain Hydrocodone Bitart/Acetaminophen ([place] 325-5 Mg) 1 tab PO QID@08,12,18,21 [facility] Hydrocodone Bitart/Acetaminophen ([place] 325-5 Mg) 1 tab PO ASDIRECTED PRN PRN Reason: Pain Atenolol (Tenormin) 25 mg PO DAILY [facility] Coenzyme Q10 (Coenzyme Q10) 100 mg PO DAILY [facility] Docusate Sodium (Colace) 100 mg PO QPM [facility] Guaifenesin (Mucinex) 600 mg PO DAILY PRN PRN Reason: Cough Lisinopril (Prinivil) 10 mg PO DAILY [facility] Non-Formulary Medication (Brimonidine Tartrate/Timolol [Combigan 0.2%-0.5% Eye Drops]) 1 drop EYEBOTH BID [facility] Non-Formulary Medication (Diltiazem [Cardizem Cd]) 1 tab PO DAILY [facility] Non-Formulary Medication (Lovastatin [Lovastatin]) 40 mg PO QPM [facility] Non-Formulary Medication (Ranitidine [Zantac]) 150 mg PO BEDTIME [facility] Non-Formulary Medication (Triamterene/Hydrochlorothiazid [Triamterene-Hctz 37.5- 25 Mg]) 1 tab PO DAILY [facility] Non-Formulary Medication (Ranitidine [Zantac]) 150 mg PO BEDTIME [facility] Ondansetron HCl (Zofran Odt) 4 mg PO Q6H PRN PRN Reason: Nausea/Vomiting Warfarin Sodium (Coumadin) 5 mg PO ONETIME ONE Stop: 05/11/19 19:37 Last Admin: 05/11/19 20:08 Dose: 5 mg Warfarin Sodium 2 mg/ Warfarin (Sodium 5 mg) 7 mg PO ONETIME ONE Stop: 05/12/19 13:44 - Exam Quality Assessment: DVT Prophylaxis General: Alert, Oriented, Cooperative, No Acute Distress HEENT: Pupils Equal, Pupils Reactive, EOMI, Mucous Membr. Moist/[place] Neck: Supple Lungs: Clear to Auscultation, Normal Respiratory Effort Cardiovascular: Irregular Rhythm. No: Murmurs GI/Abdominal Exam: Normal Bowel Sounds, Soft, Non-Tender, No Distention (Female) Exam: Deferred Back Exam: No: CVA Tenderness (L), CVA Tenderness (R), Muscle Spasm, Paraspinal Tenderness, Vertebral Tenderness Extremities: Non-Tender, Normal Capillary Refill, Pedal Edema (mild, bilateral) . No: Odin's Sign Peripheral Pulses: 2+: Radial (L), Radial (R) Skin: Warm, Dry, Intact Neurological: No New Focal Deficit Psy/Mental Status: Alert, Normal Affect, Normal Mood - Problem List & Annotations (1) Afib SNOMED Code(s): 50130000 Code(s): I48.91 - UNSPECIFIED ATRIAL FIBRILLATION Status: Acute Priority : High Current Visit: Yes Qualifiers: Atrial fibrillation type: unspecified Qualified Code(s): I48.91 - Unspecified atrial fibrillation Annotation/Comment:: Patient says she has history of previous Afib. Will start on Coumadin. May need to consider cardioversion once anticoagulated if patient does not convert on own. Is already on Cardizem. Noted to have RVR this morning with rates up into 130s-140s when active. This was noted to improve over course of the morning, suspect AM dose of Cardizem was helpful in this. Patient says that her recent weakness was most pronounced in the morning. Will add smaller dose of Cardizem in the evening for more even effect over 24 hours. Continue to monitor BP/telemetry for response. (2) Weakness SNOMED Code(s): 15715024 Code(s): R53.1 - WEAKNESS Status: Acute Priority: High Current Visit: Yes Annotation/Comment:: Suspect recent weakness secondary to Afib, however cannot rule out it being a secondary effect from recent Levaquin treatment. (3) CHF (congestive heart failure) SNOMED Code(s): 59133531 Code(s): I50.9 - HEART FAILURE, UNSPECIFIED Status: Chronic Priority: Medium Current Visit: Yes Onset Date: 05/04/16 Qualifiers: Qualified Code(s): I50.9 - Heart failure, unspecified Annotation/Comment:: Has been stable per patient. (4) Hyperlipidemia SNOMED Code(s): 54128875 Code(s): E78.5 - HYPERLIPIDEMIA, UNSPECIFIED Status: Chronic Priority: Medium Current Visit: No Qualifiers: Hyperlipidemia type: unspecified Qualified Code(s): E78.5 - Hyperlipidemia , unspecified Annotation/Comment:: Under therapy (5) COPD (chronic obstructive pulmonary disease) SNOMED Code(s): 40211123 Code(s): J44.9 - CHRONIC OBSTRUCTIVE PULMONARY DISEASE, UNSPECIFIED Status : Chronic Priority: Medium Current Visit: No Qualifiers: COPD type: unspecified COPD Qualified Code(s): J44.9 - Chronic obstructive pulmonary disease, unspecified Annotation/Comment:: stable per patient. (6) Peptic reflux disease SNOMED Code(s): 743797026 Code(s): K21.9 - GASTRO-ESOPHAGEAL REFLUX DISEASE WITHOUT ESOPHAGITIS Status: Chronic Priority: Low Current Visit: No Annotation/Comment:: stable per patient (7) Hypertension SNOMED Code(s): 02108697 Code(s): I10 - ESSENTIAL (PRIMARY) HYPERTENSION Status: Chronic Priority : Low Current Visit: No Qualifiers: Hypertension type: essential hypertension Qualified Code(s): I10 - Essential (primary) hypertension Annotation/Comment:: stable per patient. Observe BP trends (8) Mixed anxiety depressive disorder SNOMED Code(s): 757522540 Code(s): F41.8 - OTHER SPECIFIED ANXIETY DISORDERS Status: Acute Priority : Low Current Visit: No Annotation/Comment:: stable per patient (9) Rheumatoid arthritis SNOMED Code(s): 31067346 Code(s): M06.9 - RHEUMATOID ARTHRITIS, UNSPECIFIED Status: Chronic Priority: Medium Current Visit: No Qualifiers: Rheumatoid arthritis location: multiple sites Rheumatoid factor presence: unspecified presence Qualified Code(s): M06.9 - Rheumatoid arthritis, unspecified Annotation/Comment:: Moderate control with chronic narcotic use as above. No recent changes in pain. - Problem List Review Problem List Initiated/Reviewed/Updated: Yes - My Orders Last 24 Hours: My Active Orders 05/11/19 16:40 UA W/MICROSCOPIC [URIN] Stat 05/11/19 17:39 Chest 2V [CR] Routine 05/11/19 17:58 Oxygen Therapy [RC] PRN Up With Assistance [RC] ASDIRECTED VTE/DVT Education [RC] DAILY Vital Signs [RC] 08,20 OT Evaluation and Treatment [CONS] Routine PT Evaluation and Treatment [CONS] Routine Resuscitation Status Routine 05/11/19 18:00 Pulse Oximetry [RC] PRN 05/11/19 18:02 Albuterol/Ipratropium [DuoNeb 3.0-0.5 MG/3 ML] 3 ml INH Q4H PRN 05/11/19 18:15 Ubidecarenone [Coenzyme Q10] 100 mg PO DAILY 05/11/19 18:26 Ondansetron [Zofran ODT] 4 mg PO Q6H PRN guaiFENesin [Mucinex] 600 mg PO DAILY PRN 05/11/19 19:29 Patient Status [ADT] Routine 05/11/19 19:37 Telemetry Monitoring [Cardiac Monitoring] [RC] Q2HR 05/11/19 20:00 Famotidine [Pepcid] 20 mg PO BEDTIME 05/11/19 21:00 Acetaminophen/HYDROcodone [[place] 325-5 MG] 1 - 2 tab PO QID@08,12,18,21 05/11/19 23:49 Temazepam [Restoril] 15 mg PO BEDTIME PRN 05/12/19 08:00 Atenolol [Tenormin] 25 mg PO DAILY Brimonidine [Alphagan 0.2% Ophth Soln] 0 ml EYEBOTH BID Diltiazem [Cardizem CD] 240 mg PO DAILY Fluticasone Propionate [Flonase] 0 gm NASBOTH DAILY Furosemide [Lasix] 20 mg IVPUSH DAILY HCTZ/Triamterene [Maxzide 50-75 MG] 0.5 each PO DAILY Lisinopril [Prinivil] 10 mg PO DAILY Timolol Maleate [Timoptic 0.5% Ophth Soln] 0 ml EYEBOTH BID 05/12/19 14:07 CHF Questionnaire [COMM] Routine 05/12/19 18:00 Docusate Sodium [Colace] 100 mg PO QPM Lovastatin [Mevacor] 40 mg PO QPM 05/12/19 Breakfast Heart Healthy Diet [DIET] 05/13/19 05:11 INR,PT,PROTHROMBIN TIME [COAG] AM 05/13/19 05:15 BASIC METABOLIC PANEL,BMP [CHEM] AM CBC WITH AUTO DIFF [HEME] AM 05/13/19 20:00 Diltiazem [Cardizem CD] 120 mg PO DAILY - Assessment Assessment:: as above - Plan Plan:: as above. Single dose of 7mg Warfarin given today. Recheck INR in AM
[2019-05-12] MEDS: Enoxaparin 40 MG/0.4 ML Syringe SUBCUT SCH (14:35)
[2019-05-12] MEDS: Docusate Sodium 100 MG Cap PO SCH (17:31)
[2019-05-12] MEDS ORDERED: Docusate Sodium 100 MG Cap PO SCH (18:00)
[2019-05-12] MEDS ORDERED: Non-Formulary Medication 1 Each (Lovastatin [Lovastatin] 40 MG) PO SCH (18:00)
[2019-05-12] MEDS: Famotidine 20 MG Tab PO SCH (20:57)
[2019-05-13] MEDS: Acetaminophen 325 MG Tab PO PRN (03:23)
[2019-05-13] MEDS: Acetaminophen/HYDROcodone 325-5 MG Tab PO SCH ×4 (07:58→20:40)
[2019-05-13] MEDS: Fluticasone Propionate Nasal Spray 16 GM Bottle NASBOTH SCH (08:48)
[2019-05-13] MEDS: Diltiazem 120 MG Cap.CD PO SCH (08:48)
[2019-05-13] MEDS: Hydrochlorothiazide/Triamterene 50-75 MG Tab PO SCH (08:48)
[2019-05-13] MEDS: Lisinopril 10 MG Tab PO SCH (08:49)
[2019-05-13] MEDS: Timolol Maleate 0.5% Ophth Soln 5 ML Bottle EYEBOTH SCH ×2 (08:49→17:04)
[2019-05-13] MEDS: Atenolol 25 MG Tab PO SCH (08:49)
[2019-05-13] MEDS: Brimonidine 0.2% Ophth Soln 5 ML Bottle EYEBOTH SCH ×2 (08:50→17:03)
[2019-05-13] MEDS: Enoxaparin 40 MG/0.4 ML Syringe SUBCUT SCH (08:50)
[2019-05-13] MEDS: Furosemide 20 MG/2 ML VIAL IVPUSH SCH (08:50)
[2019-05-13] MEDS ORDERED: Sodium Chloride 0.9% 10 ML Syringe FLUSH PRN (10:56)
--- NOTE | 2019-05-13 15:51 | PCM.PN ---
- General Info Date of Service: 05/13/19 Admission Dx/Problem (Free Text): Patient admitted for treatment of weakness, afib with RVR. Subjective Update: Patient reports that she feels a bit better today. No new complaints. Functional Status: Reports: Pain Controlled, Tolerating Diet - Review of Systems General: Reports: Weakness HEENT: Reports: No Symptoms Pulmonary: Reports: Shortness of Breath (shortness of breath with activity) Cardiovascular: Reports: No Symptoms Gastrointestinal: Reports: No Symptoms Genitourinary: Reports: No Symptoms Musculoskeletal: Reports: No Symptoms Skin: Reports: No Symptoms Neurological: Reports: No Symptoms Psychiatric: Reports: Depression - Patient Data Vitals - Most Recent: Last Vital Signs Temp 97.6 F 05/13/19 08:00 Pulse 71 05/13/19 08:49 Resp 18 05/13/19 08:00 BP 124/62 05/13/19 08:49 Pulse Ox 93 L 05/13/19 08:00 Weight - Most Recent: 202 lb I&O - Last 24 Hours: Intake & Output 05/13/19 05/13/19 05/13/19 06:59 14:59 22:59 Intake Total 360 Balance 360 Lab Results Last 24 Hours: Laboratory Results - last 24 hr 05/12/19 05/13/19 05/13/19 Range/Units 17:30 07:00 07:00 WBC 12.8 H (4.0-10.2) K/uL RBC 3.71 L (3.77-5.09) M/uL Hgb 12.4 (11.7-15.5) g/dL Hct 36.3 (34.0-46.0) % MCV 97.8 (84.0-98.0) fL MCH 33.4 H (28.2-33.3) pg MCHC 34.2 (31.7-36.0) g/dL RDW 12.9 (11.2-14.1) % Plt Count 202 (150-350) K/uL Add Manual Diff Yes Neutrophils % (Manual) 42 Band Neutrophils % 6 Lymphocytes % (Manual) 37 Monocytes % (Manual) 15 Absolute Neutrophils 6.1440 Lymphocytes # (Manual) 4.7360 Monocytes # (Manual) 1.9200 PT 12.7 H (9.5-12.0) SEC INR 1.2 Sodium (136-145) mmol/L Potassium (3.5-5.1) mmol/L Chloride (98-107) mmol/L Carbon Dioxide (21.0-32.0) mmol/L BUN (7-18) mg/dL Creatinine (0.51-1.17) mg/dL Est Cr Clr Drug Dosing mL/min Estimated GFR (MDRD) mL/min Glucose (74-106) mg/dL Calcium (8.5-10.1) mg/dL Troponin I (0.000-0.056) ng/mL Specimen Type Urinblad Urine Color Yellow Urine Appearance Cloudy Urine pH 6.0 (5.0-9.0) Ur Specific Ferguson 1.010 (1.005-1.030) Urine Protein Negative (NEGATIVE) mg/dL Urine Glucose (UA) Negative (NEGATIVE) mg/dL Urine Ketones Negative (NEGATIVE) mg/dL Urine Occult Blood Moderate H (NEGATIVE) Urine Nitrite Negative (NEGATIVE) Urine Bilirubin Negative (NEGATIVE) Urine Urobilinogen 0.2 (0.2-1.0) E.U./dL Ur Leukocyte Esterase Moderate H (NEGATIVE) Urine RBC 0-5 /HPF Urine WBC 5-10 H /HPF Ur Epithelial Cells Moderate H /LPF Urine Bacteria Many H (NONE TO FEW) /HPF Urine Yeast Few H (NEGATIVE) /HPF 05/13/19 Range/Units 07:00 WBC (4.0-10.2) K/uL RBC (3.77-5.09) M/uL Hgb (11.7-15.5) g/dL Hct (34.0-46.0) % MCV (84.0-98.0) fL MCH (28.2-33.3) pg MCHC (31.7-36.0) g/dL RDW (11.2-14.1) % Plt Count (150-350) K/uL Add Manual Diff Neutrophils % (Manual) Band Neutrophils % Lymphocytes % (Manual) Monocytes % (Manual) Absolute Neutrophils Lymphocytes # (Manual) Monocytes # (Manual) PT (9.5-12.0) SEC INR Sodium 135 L (136-145) mmol/L Potassium 4.3 (3.5-5.1) mmol/L Chloride 99 (98-107) mmol/L Carbon Dioxide 26.1 (21.0-32.0) mmol/L BUN 32 H (7-18) mg/dL Creatinine 1.14 (0.51-1.17) mg/dL Est Cr Clr Drug Dosing 25.91 mL/min Estimated GFR (MDRD) 45 mL/min Glucose 113 H (74-106) mg/dL Calcium 8.6 (8.5-10.1) mg/dL Troponin I 0.087 H* (0.000-0.056) ng/mL Specimen Type Urine Color Urine Appearance Urine pH (5.0-9.0) Ur Specific Ferguson (1.005-1.030) Urine Protein (NEGATIVE) mg/dL Urine Glucose (UA) (NEGATIVE) mg/dL Urine Ketones (NEGATIVE) mg/dL Urine Occult Blood (NEGATIVE) Urine Nitrite (NEGATIVE) Urine Bilirubin (NEGATIVE) Urine Urobilinogen (0.2-1.0) E.U./dL Ur Leukocyte Esterase (NEGATIVE) Urine RBC /HPF Urine WBC /HPF Ur Epithelial Cells /LPF Urine Bacteria (NONE TO FEW) /HPF Urine Yeast (NEGATIVE) /HPF Med Orders - Current: Current Medications Acetaminophen (Tylenol) 650 mg PO Q4H PRN PRN Reason: Pain/Fever Last Admin: 05/13/19 03:23 Dose: 650 mg Hydrocodone Bitart/Acetaminophen (Red [place]et 325-5 Mg) 1 - 2 tab PO QID@08,12,18,21 [facility] Last Admin: 05/13/19 11:35 Dose: 1 tab Albuterol/Ipratropium (Duoneb 3.0-0.5 Mg/3 Ml) 3 ml INH Q4H PRN PRN Reason: Shortness of Breath Atenolol (Tenormin) 25 mg PO DAILY [facility] Last Admin: 05/13/19 08:49 Dose: 25 mg Brimonidine Tartrate (Alphagan 0.2% Ophth Soln) 0 ml EYEBOTH BID [facility] Last Admin: 05/13/19 08:50 Dose: 1 drop Coenzyme Q10 (Coenzyme Q10) 100 mg PO DAILY [facility] Last Admin: 05/13/19 08:50 Dose: 100 mg Diltiazem HCl (Cardizem Cd) 240 mg PO DAILY [facility] Last Admin: 05/13/19 08:48 Dose: 240 mg Diltiazem HCl (Cardizem Cd) 120 mg PO BEDTIME [facility] Docusate Sodium (Colace) 100 mg PO QPM [facility] Last Admin: 05/12/19 17:31 Dose: 100 mg Enoxaparin Sodium (Lovenox) 40 mg SUBCUT DAILY [facility] Last Admin: 05/13/19 08:50 Dose: 40 mg Famotidine (Pepcid) 20 mg PO BEDTIME [facility] Last Admin: 05/12/19 20:57 Dose: 20 mg Fluticasone Propionate (Flonase) 0 gm NASBOTH DAILY [facility] Last Admin: 05/13/19 08:48 Dose: 1 spray Furosemide (Lasix) 20 mg IVPUSH DAILY [facility] Last Admin: 05/13/19 08:50 Dose: 20 mg Guaifenesin (Mucinex) 600 mg PO DAILY PRN PRN Reason: Cough Lisinopril (Prinivil) 10 mg PO DAILY [facility] Last Admin: 05/13/19 08:49 Dose: 10 mg Lovastatin (Mevacor) 40 mg PO QPM [facility] Last Admin: 05/12/19 20:56 Dose: 40 mg Ondansetron HCl (Zofran Odt) 4 mg PO Q6H PRN PRN Reason: Nausea/Vomiting Last Admin: 05/11/19 20:14 Dose: 4 mg Sodium Chloride (Saline Flush) 10 ml FLUSH ASDIRECTED PRN PRN Reason: Keep Vein Open Sodium Chloride (Saline Flush) 10 ml FLUSH ASDIRECTED PRN PRN Reason: Keep Vein Open Temazepam (Restoril) 15 mg PO BEDTIME PRN PRN Reason: Insomnia Last Admin: 05/11/19 23:57 Dose: 15 mg Timolol Maleate (Timoptic 0.5% Oph Soln) 0 ml EYEBOTH BID [facility] Last Admin: 05/13/19 08:49 Dose: 1 drop Triamterene/HCTZ (Maxzide 50-75 Mg) 0.5 each PO DAILY [facility] Last Admin: 05/13/19 08:48 Dose: 0.5 each Discontinued Medications Hydrocodone Bitart/Acetaminophen ([place]et 325-5 Mg) 1 tab PO ASDIRECTED PRN PRN Reason: Pain Hydrocodone Bitart/Acetaminophen ([place] 325-5 Mg) 1 tab PO QID@08,12,18,21 [facility] Hydrocodone Bitart/Acetaminophen ([place] 325-5 Mg) 1 tab PO ASDIRECTED PRN PRN Reason: Pain Atenolol (Tenormin) 25 mg PO DAILY [facility] Coenzyme Q10 (Coenzyme Q10) 100 mg PO DAILY [facility] Docusate Sodium (Colace) 100 mg PO QPM [facility] Guaifenesin (Mucinex) 600 mg PO DAILY PRN PRN Reason: Cough Lisinopril (Prinivil) 10 mg PO DAILY [facility] Non-Formulary Medication (Brimonidine Tartrate/Timolol [Combigan 0.2%-0.5% Eye Drops]) 1 drop EYEBOTH BID [facility] Non-Formulary Medication (Diltiazem [Cardizem Cd]) 1 tab PO DAILY [facility] Non-Formulary Medication (Lovastatin [Lovastatin]) 40 mg PO QPM [facility] Non-Formulary Medication (Ranitidine [Zantac]) 150 mg PO BEDTIME [facility] Non-Formulary Medication (Triamterene/Hydrochlorothiazid [Triamterene-Hctz 37.5- 25 Mg]) 1 tab PO DAILY [facility] Non-Formulary Medication (Ranitidine [Zantac]) 150 mg PO BEDTIME [facility] Ondansetron HCl (Zofran Odt) 4 mg PO Q6H PRN PRN Reason: Nausea/Vomiting Warfarin Sodium (Coumadin) 5 mg PO ONETIME ONE Stop: 05/11/19 19:37 Last Admin: 05/11/19 20:08 Dose: 5 mg Warfarin Sodium 2 mg/ Warfarin (Sodium 5 mg) 7 mg PO ONETIME ONE Stop: 05/12/19 13:44 Last Admin: 05/12/19 14:35 Dose: 7 mg - Exam Quality Assessment: DVT Prophylaxis General: Alert, Oriented, Cooperative, No Acute Distress HEENT: Pupils Equal, Pupils Reactive, Mucous Membr. Moist/[place] Neck: Supple, Trachea Midline Lungs: Normal Respiratory Effort, Crackles (scattered crackles to bilat bases) Cardiovascular: Regular Rate, Regular Rhythm, Murmurs GI/Abdominal Exam: Normal Bowel Sounds, Soft, Non-Tender, No Organomegaly Extremities: Normal Inspection, Normal Range of Motion, Non-Tender, No Pedal Edema Peripheral Pulses: 1+: Dorsalis Pedis (L), Dorsalis Pedis (R) Skin: Warm, Dry, Intact Neurological: No New Focal Deficit Psy/Mental Status: Alert, Normal Affect, Normal Mood - Problem List & Annotations (1) Afib SNOMED Code(s): 80847970 Code(s): I48.91 - UNSPECIFIED ATRIAL FIBRILLATION Status: Acute Priority : High Current Visit: Yes Qualifiers: Atrial fibrillation type: unspecified Qualified Code(s): I48.91 - Unspecified atrial fibrillation Annotation/Comment:: Will continue on cardiazem and subQ Lovenox. (2) Weakness SNOMED Code(s): 68180539 Code(s): R53.1 - WEAKNESS Status: Acute Priority: High Current Visit: Yes Annotation/Comment:: Suspect recent weakness secondary to Afib, (3) CHF (congestive heart failure) SNOMED Code(s): 98911885 Code(s): I50.9 - HEART FAILURE, UNSPECIFIED Status: Chronic Priority: Medium Current Visit: Yes Onset Date: 05/04/16 Qualifiers: Qualified Code(s): I50.9 - Heart failure, unspecified Annotation/Comment:: Has been stable per patient. (4) Rheumatoid arthritis SNOMED Code(s): 09643169 Code(s): M06.9 - RHEUMATOID ARTHRITIS, UNSPECIFIED Status: Acute Current Visit: No Qualifiers: Rheumatoid arthritis location: multiple sites Rheumatoid factor presence: with rheumatoid factor Qualified Code(s): M05.79 - Rheumatoid arthritis with rheumatoid factor of multiple sites without organ or systems involvement (5) COPD (chronic obstructive pulmonary disease) SNOMED Code(s): 60411645 Code(s): J44.9 - CHRONIC OBSTRUCTIVE PULMONARY DISEASE, UNSPECIFIED Status : Chronic Priority: Medium Current Visit: No Qualifiers: COPD type: unspecified COPD Qualified Code(s): J44.9 - Chronic obstructive pulmonary disease, unspecified Annotation/Comment:: stable per patient. (6) Hypertension SNOMED Code(s): 21699978 Code(s): I10 - ESSENTIAL (PRIMARY) HYPERTENSION Status: Chronic Priority : Low Current Visit: No Qualifiers: Hypertension type: essential hypertension Qualified Code(s): I10 - Essential (primary) hypertension Annotation/Comment:: stable per patient. Observe BP trends - Problem List Review Problem List Initiated/Reviewed/Updated: Yes - Assessment Assessment:: as above - Plan Plan:: as above. Single dose of 7mg Warfarin given today. Recheck INR in AM 05/13/2019 Patient is now in sinus rhythm, converted with oral therapy. Will consult with Dr Vela in regards to starting anticoagulation such as Eliquis. Echo done today. Patient's zoloft stopped at the last hospitalization due to hyponatremia. Patient states feeling down, will start Remeron tonight. PT/OT consult to see if the patient will qualify for swingbed due to her repeated hospitalizations. Son (Aime) states he is unsure if the patient is able to return to home, he has been at her house a majority of the day when she was recently discharged from hospital. Will need to discuss with the patient her thoughts in regards to going back to her house. Recheck labs in the morning. Dominique Armijo,[employer]
[2019-05-13] MEDS: Docusate Sodium 100 MG Cap PO SCH (17:04)
[2019-05-13] MEDS ORDERED: Diltiazem 120 MG Cap.CD PO SCH (20:00)
[2019-05-13] MEDS: Famotidine 20 MG Tab PO SCH (20:39)
[2019-05-13] MEDS: Mirtazapine 15 MG Tab PO SCH (20:41)
[2019-05-14] MEDS: Acetaminophen 325 MG Tab PO PRN (01:19)
[2019-05-14] MEDS: Enoxaparin 40 MG/0.4 ML Syringe SUBCUT SCH (09:11)
[2019-05-14] MEDS: Diltiazem 120 MG Cap.CD PO SCH (09:15)
[2019-05-14] MEDS: Lisinopril 10 MG Tab PO SCH (09:16)
[2019-05-14] MEDS: Atenolol 25 MG Tab PO SCH (09:17)
[2019-05-14] MEDS: Hydrochlorothiazide/Triamterene 50-75 MG Tab PO SCH (09:17)
[2019-05-14] MEDS: Acetaminophen/HYDROcodone 325-5 MG Tab PO SCH ×4 (09:18→23:06)
[2019-05-14] MEDS: Fluticasone Propionate Nasal Spray 16 GM Bottle NASBOTH SCH (09:19)
[2019-05-14] MEDS: Timolol Maleate 0.5% Ophth Soln 5 ML Bottle EYEBOTH SCH ×2 (09:20→17:12)
[2019-05-14] MEDS: Furosemide 20 MG/2 ML VIAL IVPUSH SCH (09:24)
[2019-05-14] MEDS: Brimonidine 0.2% Ophth Soln 5 ML Bottle EYEBOTH SCH ×2 (09:26→17:11)
[2019-05-14] MEDS: Docusate Sodium 100 MG Cap PO SCH (17:13)
[2019-05-14] MEDS: Sodium Chloride 0.9% 10 ML Syringe FLUSH PRN (17:14)
[2019-05-14] MEDS ORDERED: Dronabinol 2.5 MG Cap PO SCH (18:00)
[2019-05-14] MEDS ORDERED: methylPREDNISolone Sodium Succinate 40 MG/1 ML SDV IVPUSH ONE (18:00)
[2019-05-14] MEDS ORDERED: Acetaminophen/HYDROcodone 325-5 MG Tab PO PRN (18:20)
[2019-05-14] MEDS: Mirtazapine 15 MG Tab PO SCH (19:26)
[2019-05-14] MEDS: Sodium Chloride 0.9% 10 ML Syringe FLUSH SCH (19:27)
[2019-05-14] MEDS: Famotidine 20 MG Tab PO SCH (19:27)
--- NOTE | 2019-05-14 21:27 | PCM.PN ---
- General Info Date of Service: 05/14/19 Admission Dx/Problem (Free Text): Patient admitted for treatment of weakness, afib with RVR. Subjective Update: Patient reports that she feels a bit better today. No new complaints. Functional Status: Reports: Other (pain not well controlled) - Review of Systems General: Reports: Weakness HEENT: Reports: No Symptoms Pulmonary: Reports: No Symptoms Cardiovascular: Reports: No Symptoms Gastrointestinal: Reports: No Symptoms Genitourinary: Reports: No Symptoms Musculoskeletal: Reports: Shoulder Pain, Hand Pain, Back Pain, Joint Pain, Joint Swelling (wrists and hands) Skin: Reports: No Symptoms Neurological: Reports: Difficulty Walking, Weakness Psychiatric: Reports: Depression - Patient Data Vitals - Most Recent: Last Vital Signs Temp 98 F 05/14/19 19:32 Pulse 71 05/14/19 19:32 Resp 12 05/14/19 19:32 BP 98/51 L 05/14/19 19:32 Pulse Ox 90 L 05/14/19 19:32 Weight - Most Recent: 202 lb I&O - Last 24 Hours: Intake & Output 05/14/19 05/14/19 05/14/19 06:59 14:59 22:59 Intake Total 120 120 Balance 120 120 Med Orders - Current: Current Medications Acetaminophen (Tylenol) 650 mg PO Q4H PRN PRN Reason: Pain/Fever Last Admin: 05/14/19 01:19 Dose: 650 mg Hydrocodone Bitart/Acetaminophen (Kite 325-5 Mg) 1 - 2 tab PO QID@08,12,18,21 [facility] Last Admin: 05/14/19 17:15 Dose: 1 tab Hydrocodone Bitart/Acetaminophen (Kite 325-5 Mg) 1 tab PO Q3H PRN PRN Reason: Pain Albuterol/Ipratropium (Duoneb 3.0-0.5 Mg/3 Ml) 3 ml INH Q4H PRN PRN Reason: Shortness of Breath Atenolol (Tenormin) 25 mg PO DAILY [facility] Last Admin: 05/14/19 09:17 Dose: 25 mg Brimonidine Tartrate (Alphagan 0.2% Ophth Soln) 0 ml EYEBOTH BID [facility] Last Admin: 05/14/19 17:11 Dose: 1 drop Diltiazem HCl (Cardizem Cd) 240 mg PO DAILY [facility] Last Admin: 05/14/19 09:15 Dose: 240 mg Docusate Sodium (Colace) 100 mg PO QPM [facility] Last Admin: 05/14/19 17:13 Dose: 100 mg Dronabinol (Marinol) 2.5 mg PO DAILY@1800 [facility] Famotidine (Pepcid) 20 mg PO BEDTIME [facility] Last Admin: 05/14/19 19:27 Dose: 20 mg Fluticasone Propionate (Flonase) 0 gm NASBOTH DAILY [facility] Last Admin: 05/14/19 09:19 Dose: 1 spray Guaifenesin (Mucinex) 600 mg PO DAILY PRN PRN Reason: Cough Mirtazapine (Remeron) 7.5 mg PO BEDTIME [facility] Last Admin: 05/14/19 19:26 Dose: 7.5 mg Sodium Chloride (Saline Flush) 10 ml FLUSH ASDIRECTED PRN PRN Reason: Keep Vein Open Last Admin: 05/14/19 17:14 Dose: 10 ml Sodium Chloride (Saline Flush) 10 ml FLUSH Q12HR [facility] Last Admin: 05/14/19 19:27 Dose: 10 ml Timolol Maleate (Timoptic 0.5% Ophth Soln) 0 ml EYEBOTH BID [facility] Last Admin: 05/14/19 17:12 Dose: 1 drop Triamterene/HCTZ (Maxzide 50-75 Mg) 0.5 each PO DAILY [facility] Last Admin: 05/14/19 09:17 Dose: 0.5 each Discontinued Medications Hydrocodone Bitart/Acetaminophen (Kite 325-5 Mg) 1 tab PO ASDIRECTED PRN PRN Reason: Pain Hydrocodone Bitart/Acetaminophen (Kite 325-5 Mg) 1 tab PO QID@08,12,18,21 [facility] Hydrocodone Bitart/Acetaminophen (Kite 325-5 Mg) 1 tab PO ASDIRECTED PRN PRN Reason: Pain Atenolol (Tenormin) 25 mg PO DAILY [facility] Coenzyme Q10 (Coenzyme Q10) 100 mg PO DAILY [facility] Coenzyme Q10 (Coenzyme Q10) 100 mg PO DAILY [facility] Last Admin: 05/14/19 09:16 Dose: 100 mg Diltiazem HCl (Cardizem Cd) 120 mg PO BEDTIME [facility] Last Admin: 05/13/19 20:40 Dose: 120 mg Docusate Sodium (Colace) 100 mg PO QPM [facility] Dronabinol (Marinol) 2.5 mg PO BID [facility] Last Admin: 05/14/19 17:17 Dose: 2.5 mg Enoxaparin Sodium (Lovenox) 40 mg SUBCUT DAILY [facility] Last Admin: 05/14/19 09:11 Dose: 40 mg Furosemide (Lasix) 20 mg IVPUSH DAILY [facility] Last Admin: 05/14/19 09:24 Dose: 20 mg Guaifenesin (Mucinex) 600 mg PO DAILY PRN PRN Reason: Cough Lisinopril (Prinivil) 10 mg PO DAILY [facility] Lisinopril (Prinivil) 10 mg PO DAILY [facility] Last Admin: 05/14/19 09:16 Dose: 10 mg Lovastatin (Mevacor) 40 mg PO QPM [facility] Last Admin: 05/14/19 17:17 Dose: Not Given Methylprednisolone Sodium Succinate (Solu-Medrol) 40 mg IVPUSH ONETIME ONE Stop: 05/14/19 18:01 Last Admin: 05/14/19 17:18 Dose: 40 mg Non-Formulary Medication (Brimonidine Tartrate/Timolol [Combigan 0.2%-0.5% Eye Drops]) 1 drop EYEBOTH BID [facility] Non-Formulary Medication (Diltiazem [Cardizem Cd]) 1 tab PO DAILY [facility] Non-Formulary Medication (Lovastatin [Lovastatin]) 40 mg PO QPM [facility] Non-Formulary Medication (Ranitidine [Zantac]) 150 mg PO BEDTIME [facility] Non-Formulary Medication (Triamterene/Hydrochlorothiazid [Triamterene-Hctz 37.5- 25 Mg]) 1 tab PO DAILY [facility] Non-Formulary Medication (Ranitidine [Zantac]) 150 mg PO BEDTIME [facility] Ondansetron HCl (Zofran Odt) 4 mg PO Q6H PRN PRN Reason: Nausea/Vomiting Ondansetron HCl (Zofran Odt) 4 mg PO Q6H PRN PRN Reason: Nausea/Vomiting Last Admin: 05/11/19 20:14 Dose: 4 mg Sodium Chloride (Saline Flush) 10 ml FLUSH ASDIRECTED PRN PRN Reason: Keep Vein Open Last Admin: 05/14/19 09:27 Dose: 10 ml Temazepam (Restoril) 15 mg PO BEDTIME PRN PRN Reason: Insomnia Last Admin: 05/11/19 23:57 Dose: 15 mg Warfarin Sodium (Coumadin) 5 mg PO ONETIME ONE Stop: 05/11/19 19:37 Last Admin: 05/11/19 20:08 Dose: 5 mg Warfarin Sodium 2 mg/ Warfarin (Sodium 5 mg) 7 mg PO ONETIME ONE Stop: 05/12/19 13:44 Last Admin: 05/12/19 14:35 Dose: 7 mg - Exam Quality Assessment: DVT Prophylaxis General: Alert, Cooperative, Mild Distress (pain) HEENT: Pupils Equal, Pupils Reactive, Mucous Membr. Moist/[place] Neck: Trachea Midline, No JVD Lungs: Normal Respiratory Effort, Decreased Breath Sounds Cardiovascular: Regular Rate, Regular Rhythm GI/Abdominal Exam: Soft, Non-Tender, No Distention (Female) Exam: Deferred Back Exam: Decreased Range of Motion, Paraspinal Tenderness, Other (kypho- scoliosis) Extremities: Non-Tender Skin: Warm, Dry, Intact Neurological: No New Focal Deficit, Other (generalized weakness) Psy/Mental Status: Alert, Depressed - Problem List & Annotations (1) Afib SNOMED Code(s): 49760930 Code(s): I48.91 - UNSPECIFIED ATRIAL FIBRILLATION Status: Acute Priority : High Current Visit: Yes Qualifiers: Atrial fibrillation type: paroxysmal Qualified Code(s): I48.0 - Paroxysmal atrial fibrillation Annotation/Comment:: (2) Weakness SNOMED Code(s): 38686234 Code(s): R53.1 - WEAKNESS Status: Acute Priority: High Current Visit: Yes Annotation/Comment:: Suspect recent weakness secondary to Afib, (3) CHF (congestive heart failure) SNOMED Code(s): 45788612 Code(s): I50.9 - HEART FAILURE, UNSPECIFIED Status: Chronic Priority: Medium Current Visit: Yes Onset Date: 05/04/16 Qualifiers: Qualified Code(s): I50.9 - Heart failure, unspecified Annotation/Comment:: (4) HTN, Benign hypertension SNOMED Code(s): 51696058 Code(s): I10 - ESSENTIAL (PRIMARY) HYPERTENSION Status: Acute Priority: Medium Current Visit: No (5) Heart disease SNOMED Code(s): 37380995 Code(s): I51.9 - HEART DISEASE, UNSPECIFIED Status: Acute Priority: Medium Current Visit: No (6) Hyponatremia SNOMED Code(s): 92131676 Code(s): E87.1 - HYPO-OSMOLALITY AND HYPONATREMIA Status: Acute Current Visit: No (7) Mixed anxiety depressive disorder SNOMED Code(s): 189702447 Code(s): F41.8 - OTHER SPECIFIED ANXIETY DISORDERS Status: Acute Priority : Low Current Visit: No (8) Rheumatoid arthritis SNOMED Code(s): 24079926 Code(s): M06.9 - RHEUMATOID ARTHRITIS, UNSPECIFIED Status: Acute Current Visit: No Qualifiers: Rheumatoid arthritis location: multiple sites Rheumatoid factor presence: with rheumatoid factor Qualified Code(s): M05.79 - Rheumatoid arthritis with rheumatoid factor of multiple sites without organ or systems involvement (9) COPD (chronic obstructive pulmonary disease) SNOMED Code(s): 98535261 Code(s): J44.9 - CHRONIC OBSTRUCTIVE PULMONARY DISEASE, UNSPECIFIED Status : Chronic Priority: Medium Current Visit: No Qualifiers: COPD type: chronic bronchitis Chronic bronchitis type: simple Qualified Code(s): J41.0 - Simple chronic bronchitis (10) Hyperlipidemia SNOMED Code(s): 23882962 Code(s): E78.5 - HYPERLIPIDEMIA, UNSPECIFIED Status: Chronic Priority: Medium Current Visit: No Qualifiers: Hyperlipidemia type: moderate mixed hyperlipidemia not requiring statin therapy Qualified Code(s): E78.2 - Mixed hyperlipidemia (11) Hypertension SNOMED Code(s): 28254201 Code(s): I10 - ESSENTIAL (PRIMARY) HYPERTENSION Status: Chronic Priority : Low Current Visit: No Qualifiers: Hypertension type: essential hypertension Qualified Code(s): I10 - Essential (primary) hypertension (12) Peptic reflux disease SNOMED Code(s): 307561271 Code(s): K21.9 - GASTRO-ESOPHAGEAL REFLUX DISEASE WITHOUT ESOPHAGITIS Status: Chronic Priority: Low Current Visit: No - Problem List Review Problem List Initiated/Reviewed/Updated: Yes - My Orders Last 24 Hours: My Active Orders 05/14/19 18:20 Acetaminophen/HYDROcodone [Kite 325-5 MG] 1 tab PO Q3H PRN 05/14/19 20:00 Sodium Chloride 0.9% [Saline Flush] 10 ml FLUSH Q12HR 05/15/19 05:11 CBC WITH AUTO DIFF [HEME] Routine CMP [COMPREHENSIVE METABOLIC PN,CMP] [CHEM] Routine CREATINE KINASE,CK [CHEM] Routine CRP [C-REACTIVE PROTEIN] [CHEM] Routine PRO B-TYPE NATRIUR PEPT,BNPPRO [CHEM] Routine SEDIMENTATION RATE AUTO [HEME] Routine 05/15/19 18:00 Dronabinol [Marinol] 2.5 mg PO DAILY@1800 - Assessment Assessment:: as above - Plan Plan:: as above. Single dose of 7mg Warfarin given today. Recheck INR in AM 05/13/2019 Patient is now in sinus rhythm, converted with oral therapy. Will consult with Dr Vela in regards to starting anticoagulation such as Eliquis. Echo done today. Patient's zoloft stopped at the last hospitalization due to hyponatremia. Patient states feeling down, will start Remeron tonight. PT/OT consult to see if the patient will qualify for swingbed due to her repeated hospitalizations. Son (Aime) states he is unsure if the patient is able to return to home, he has been at her house a majority of the day when she was recently discharged from hospital. Will need to discuss with the patient her thoughts in regards to going back to her house. Recheck labs in the morning. Dominique Armijo,VERITO 05/14/19 Still in normal sinus rhythm. However blood pressure quit low this morning ( hypotensive). Also having a lot of pain. Long discussion with her and sons x2 regarding multiple medication options for atrial fibrillation, hypotension/ hypertension, and pain secondary to rheumatoid arthritis. Still requiring inpatient status. Discharge plans discussed.
[2019-05-15] MEDS: Brimonidine 0.2% Ophth Soln 5 ML Bottle EYEBOTH SCH ×2 (08:04→17:35)
[2019-05-15] MEDS: Fluticasone Propionate Nasal Spray 16 GM Bottle NASBOTH SCH (08:04)
[2019-05-15] MEDS: Hydrochlorothiazide/Triamterene 50-75 MG Tab PO SCH (08:05)
[2019-05-15] MEDS: Timolol Maleate 0.5% Ophth Soln 5 ML Bottle EYEBOTH SCH ×2 (08:05→17:36)
[2019-05-15] MEDS: Diltiazem 120 MG Cap.CD PO SCH (08:05)
[2019-05-15] MEDS: Atenolol 25 MG Tab PO SCH (08:05)
[2019-05-15] MEDS: Acetaminophen/HYDROcodone 325-5 MG Tab PO SCH ×4 (08:06→20:57)
[2019-05-15] MEDS: Sodium Chloride 0.9% 10 ML Syringe FLUSH SCH ×2 (08:09→20:59)
[2019-05-15] MEDS: Sodium Chloride 0.9% 1,000 ML IV SCH (14:19)
[2019-05-15] MEDS: Sodium Chloride 0.9% 10 ML Syringe FLUSH PRN (14:23)
[2019-05-15] MEDS: Docusate Sodium 100 MG Cap PO SCH (17:35)
[2019-05-15] MEDS ORDERED: Dronabinol 2.5 MG Cap PO SCH (18:00)
[2019-05-15] MEDS: Famotidine 20 MG Tab PO SCH (20:57)
[2019-05-15] MEDS: Mirtazapine 15 MG Tab PO SCH (20:58)
--- NOTE | 2019-05-15 23:36 | PCM.PN ---
- General Info Date of Service: 05/15/19 Admission Dx/Problem (Free Text): Patient admitted for treatment of weakness, afib with RVR. Subjective Update: Patient reports that she feels a bit better today. No new complaints. Functional Status: Reports: Pain Controlled, Tolerating Diet, Ambulating - Review of Systems General: Reports: Weakness HEENT: Reports: No Symptoms Pulmonary: Reports: No Symptoms Cardiovascular: Reports: No Symptoms Gastrointestinal: Reports: Constipation, Decreased Appetite Genitourinary: Reports: No Symptoms Musculoskeletal: Reports: Back Pain, Joint Pain (multiple sites) Skin: Reports: No Symptoms Neurological: Reports: Difficulty Walking, Weakness Psychiatric: Reports: Depression (improving) - Patient Data Vitals - Most Recent: Last Vital Signs Temp 97.5 F 05/15/19 19:19 Pulse 70 05/15/19 19:19 Resp 12 05/15/19 19:19 BP 116/58 L 05/15/19 19:19 Pulse Ox 94 L 05/15/19 19:19 Weight - Most Recent: 202 lb I&O - Last 24 Hours: Intake & Output 05/15/19 05/15/19 05/16/19 14:59 22:59 06:59 Intake Total 680 450 Output Total 200 200 Balance 480 250 Lab Results Last 24 Hours: Laboratory Results - last 24 hr 05/15/19 05/15/19 05/15/19 Range/Units 07:05 07:05 14:30 WBC 9.9 (4.0-10.2) K/uL RBC 3.89 (3.77-5.09) M/uL Hgb 12.8 (11.7-15.5) g/dL Hct 37.9 (34.0-46.0) % MCV 97.4 (84.0-98.0) fL MCH 32.9 (28.2-33.3) pg MCHC 33.8 (31.7-36.0) g/dL RDW 12.9 (11.2-14.1) % Plt Count 187 (150-350) K/uL Neut % (Auto) 79.8 (45.0-80.0) % Lymph % (Auto) 13.6 (10.0-50.0) % [place] % (Auto) 4.3 (2.0-14.0) % Eos % (Auto) 0.1 (0.0-5.0) % Baso % (Auto) 2.2 H (0.0-2.0) % Neut # (Auto) 7.89 H (1.40-7.00) K/uL Lymph # (Auto) 1.34 (0.50-3.50) K/uL [place] # (Auto) 0.42 (0.00-1.00) K/uL Eos # (Auto) 0.01 (0.00-0.50) K/uL Baso # (Auto) 0.22 H (0.00-0.20) K/uL ESR 75 H (0-42) mm/hr Sodium 135 L (136-145) mmol/L Potassium 4.4 (3.5-5.1) mmol/L Chloride 98 (98-107) mmol/L Carbon Dioxide 26.7 (21.0-32.0) mmol/L BUN 39 H (7-18) mg/dL Creatinine 1.29 H (0.51-1.17) mg/dL Est Cr Clr Drug Dosing 22.90 mL/min Estimated GFR (MDRD) 39 mL/min Glucose 154 H (74-106) mg/dL Calcium 8.9 (8.5-10.1) mg/dL Total Bilirubin 0.5 (0.2-1.0) mg/dL AST 17 (15-37) U/L ALT 34 (12-78) U/L Alkaline Phosphatase 53 (46-116) IU/L Creatine Kinase 23 L (26-308) U/L C-Reactive Protein 1.5 H (<=0.9) mg/dL NT-Pro-B Natriuret Pep 654 H (0-125) pg/mL Total Protein 6.9 (6.4-8.2) g/dL Albumin 3.0 L (3.4-5.0) g/dL Specimen Type Urinblad Urine Color Yellow Urine Appearance Cloudy Urine pH 7.0 (5.0-9.0) Ur Specific [place] 1.015 (1.005-1.030) Urine Protein Negative (NEGATIVE) mg/dL Urine Glucose (UA) Negative (NEGATIVE) mg/dL Urine Ketones Negative (NEGATIVE) mg/dL Urine Occult Blood Negative (NEGATIVE) Urine Nitrite Negative (NEGATIVE) Urine Bilirubin Negative (NEGATIVE) Urine Urobilinogen 0.2 (0.2-1.0) E.U./dL Ur Leukocyte Esterase Negative (NEGATIVE) Urine RBC 0-5 /HPF Urine WBC 0-5 /HPF Ur Epithelial Cells Many H /LPF Amorphous Sediment Few (0/HPF) /HPF Urine Bacteria Few (NONE TO FEW) /HPF Med Orders - Current: Current Medications Hydrocodone Bitart/Acetaminophen ([place] 325-5 Mg) 1 - 2 tab PO QID@08,12,18,21 [facility] Last Admin: 05/15/19 20:57 Dose: 1 tab Hydrocodone Bitart/Acetaminophen ([place] 325-5 Mg) 1 tab PO Q3H PRN PRN Reason: Pain Albuterol/Ipratropium (Duoneb 3.0-0.5 Mg/3 Ml) 3 ml INH Q4H PRN PRN Reason: Shortness of Breath Atenolol (Tenormin) 25 mg PO DAILY [facility] Last Admin: 05/15/19 08:05 Dose: 25 mg Brimonidine Tartrate (Alphagan 0.2% Ophth Soln) 0 ml EYEBOTH BID [facility] Last Admin: 05/15/19 17:35 Dose: 1 drop Diltiazem HCl (Cardizem Cd) 240 mg PO DAILY [facility] Last Admin: 05/15/19 08:05 Dose: 240 mg Docusate Sodium (Colace) 100 mg PO QPM [facility] Last Admin: 05/15/19 17:35 Dose: 100 mg Dronabinol (Marinol) 2.5 mg PO DAILY@1800 [facility] Last Admin: 05/15/19 17:35 Dose: 2.5 mg Famotidine (Pepcid) 20 mg PO BEDTIME [facility] Last Admin: 05/15/19 20:57 Dose: 20 mg Fluticasone Propionate (Flonase) 0 gm NASBOTH DAILY [facility] Last Admin: 05/15/19 08:04 Dose: 1 spray Guaifenesin (Mucinex) 600 mg PO DAILY PRN PRN Reason: Cough Sodium Chloride (Normal Saline) 1,000 mls @ 75 mls/hr IV ASDIRECTED [facility] Last Admin: 05/15/19 14:19 Dose: 75 mls/hr Mirtazapine (Remeron) 7.5 mg PO BEDTIME [facility] Last Admin: 05/15/19 20:58 Dose: 7.5 mg Sodium Chloride (Saline Flush) 10 ml FLUSH ASDIRECTED PRN PRN Reason: Keep Vein Open Last Admin: 05/15/19 14:23 Dose: 10 ml Sodium Chloride (Saline Flush) 10 ml FLUSH Q12HR [facility] Last Admin: 05/15/19 20:59 Dose: Not Given Timolol Maleate (Timoptic 0.5% Ophth Soln) 0 ml EYEBOTH BID [facility] Last Admin: 05/15/19 17:36 Dose: 1 drop Triamterene/HCTZ (Maxzide 50-75 Mg) 0.5 each PO DAILY [facility] Last Admin: 05/15/19 08:05 Dose: 0.5 each Discontinued Medications Acetaminophen (Tylenol) 650 mg PO Q4H PRN PRN Reason: Pain/Fever Last Admin: 05/14/19 01:19 Dose: 650 mg Hydrocodone Bitart/Acetaminophen ([place] 325-5 Mg) 1 tab PO ASDIRECTED PRN PRN Reason: Pain Hydrocodone Bitart/Acetaminophen ([place] 325-5 Mg) 1 tab PO QID@08,12,18,21 [facility] Hydrocodone Bitart/Acetaminophen ([place] 325-5 Mg) 1 tab PO ASDIRECTED PRN PRN Reason: Pain Atenolol (Tenormin) 25 mg PO DAILY [facility] Coenzyme Q10 (Coenzyme Q10) 100 mg PO DAILY [facility] Coenzyme Q10 (Coenzyme Q10) 100 mg PO DAILY [facility] Last Admin: 05/14/19 09:16 Dose: 100 mg Diltiazem HCl (Cardizem Cd) 120 mg PO BEDTIME [facility] Last Admin: 05/13/19 20:40 Dose: 120 mg Docusate Sodium (Colace) 100 mg PO QPM [facility] Dronabinol (Marinol) 2.5 mg PO BID [facility] Last Admin: 05/14/19 17:17 Dose: 2.5 mg Enoxaparin Sodium (Lovenox) 40 mg SUBCUT DAILY [facility] Last Admin: 05/14/19 09:11 Dose: 40 mg Furosemide (Lasix) 20 mg IVPUSH DAILY [facility] Last Admin: 05/14/19 09:24 Dose: 20 mg Guaifenesin (Mucinex) 600 mg PO DAILY PRN PRN Reason: Cough Lisinopril (Prinivil) 10 mg PO DAILY [facility] Lisinopril (Prinivil) 10 mg PO DAILY [facility] Last Admin: 05/14/19 09:16 Dose: 10 mg Lovastatin (Mevacor) 40 mg PO QPM [facility] Last Admin: 05/14/19 17:17 Dose: Not Given Methylprednisolone Sodium Succinate (Solu-Medrol) 40 mg IVPUSH ONETIME ONE Stop: 05/14/19 18:01 Last Admin: 05/14/19 17:18 Dose: 40 mg Non-Formulary Medication (Brimonidine Tartrate/Timolol [Combigan 0.2%-0.5% Eye Drops]) 1 drop EYEBOTH BID [facility] Non-Formulary Medication (Diltiazem [Cardizem Cd]) 1 tab PO DAILY [facility] Non-Formulary Medication (Lovastatin [Lovastatin]) 40 mg PO QPM [facility] Non-Formulary Medication (Ranitidine [Zantac]) 150 mg PO BEDTIME [facility] Non-Formulary Medication (Triamterene/Hydrochlorothiazid [Triamterene-Hctz 37.5- 25 Mg]) 1 tab PO DAILY [facility] Non-Formulary Medication (Ranitidine [Zantac]) 150 mg PO BEDTIME [facility] Ondansetron HCl (Zofran Odt) 4 mg PO Q6H PRN PRN Reason: Nausea/Vomiting Ondansetron HCl (Zofran Odt) 4 mg PO Q6H PRN PRN Reason: Nausea/Vomiting Last Admin: 05/11/19 20:14 Dose: 4 mg Sodium Chloride (Saline Flush) 10 ml FLUSH ASDIRECTED PRN PRN Reason: Keep Vein Open Last Admin: 05/14/19 09:27 Dose: 10 ml Temazepam (Restoril) 15 mg PO BEDTIME PRN PRN Reason: Insomnia Last Admin: 05/11/19 23:57 Dose: 15 mg Warfarin Sodium (Coumadin) 5 mg PO ONETIME ONE Stop: 05/11/19 19:37 Last Admin: 05/11/19 20:08 Dose: 5 mg Warfarin Sodium 2 mg/ Warfarin (Sodium 5 mg) 7 mg PO ONETIME ONE Stop: 05/12/19 13:44 Last Admin: 05/12/19 14:35 Dose: 7 mg - Exam General: Alert, Cooperative, No Acute Distress HEENT: Pupils Equal, Pupils Reactive, EOMI, Mucous Membr. Moist/[place] Neck: Trachea Midline, No JVD, No Thyromegaly Lungs: Normal Respiratory Effort, Decreased Breath Sounds Cardiovascular: Regular Rate, Regular Rhythm, Tachycardia GI/Abdominal Exam: Soft, Non-Tender, No Distention (Female) Exam: Deferred Back Exam: Decreased Range of Motion, Paraspinal Tenderness Extremities: Normal Inspection, Non-Tender Skin: Warm, Dry, Intact, Ecchymosis Neurological: No New Focal Deficit Psy/Mental Status: Alert, Normal Affect, Normal Mood - Problem List & Annotations (1) Afib SNOMED Code(s): 94855512 Code(s): I48.91 - UNSPECIFIED ATRIAL FIBRILLATION Status: Acute Priority : High Current Visit: Yes Qualifiers: Atrial fibrillation type: paroxysmal Qualified Code(s): I48.0 - Paroxysmal atrial fibrillation Annotation/Comment:: (2) Weakness SNOMED Code(s): 52185133 Code(s): R53.1 - WEAKNESS Status: Acute Priority: High Current Visit: Yes Annotation/Comment:: Suspect recent weakness secondary to Afib, (3) CHF (congestive heart failure) SNOMED Code(s): 06471279 Code(s): I50.9 - HEART FAILURE, UNSPECIFIED Status: Chronic Priority: Medium Current Visit: Yes Onset Date: 05/04/16 Qualifiers: Qualified Code(s): I50.9 - Heart failure, unspecified Annotation/Comment:: (4) HTN, Benign hypertension SNOMED Code(s): 06107120 Code(s): I10 - ESSENTIAL (PRIMARY) HYPERTENSION Status: Acute Priority: Medium Current Visit: No (5) Heart disease SNOMED Code(s): 36647719 Code(s): I51.9 - HEART DISEASE, UNSPECIFIED Status: Acute Priority: Medium Current Visit: No (6) Hyponatremia SNOMED Code(s): 73653262 Code(s): E87.1 - HYPO-OSMOLALITY AND HYPONATREMIA Status: Acute Current Visit: No (7) Mixed anxiety depressive disorder SNOMED Code(s): 627372150 Code(s): F41.8 - OTHER SPECIFIED ANXIETY DISORDERS Status: Acute Priority : Low Current Visit: No (8) Rheumatoid arthritis SNOMED Code(s): 47422719 Code(s): M06.9 - RHEUMATOID ARTHRITIS, UNSPECIFIED Status: Acute Current Visit: No Qualifiers: Rheumatoid arthritis location: multiple sites Rheumatoid factor presence: with rheumatoid factor Qualified Code(s): M05.79 - Rheumatoid arthritis with rheumatoid factor of multiple sites without organ or systems involvement (9) COPD (chronic obstructive pulmonary disease) SNOMED Code(s): 98528647 Code(s): J44.9 - CHRONIC OBSTRUCTIVE PULMONARY DISEASE, UNSPECIFIED Status : Chronic Priority: Medium Current Visit: No Qualifiers: COPD type: chronic bronchitis Chronic bronchitis type: simple Qualified Code(s): J41.0 - Simple chronic bronchitis (10) Hyperlipidemia SNOMED Code(s): 73443358 Code(s): E78.5 - HYPERLIPIDEMIA, UNSPECIFIED Status: Chronic Priority: Medium Current Visit: No Qualifiers: Hyperlipidemia type: moderate mixed hyperlipidemia not requiring statin therapy Qualified Code(s): E78.2 - Mixed hyperlipidemia (11) Hypertension SNOMED Code(s): 20118317 Code(s): I10 - ESSENTIAL (PRIMARY) HYPERTENSION Status: Chronic Priority : Low Current Visit: No Qualifiers: Hypertension type: essential hypertension Qualified Code(s): I10 - Essential (primary) hypertension (12) Peptic reflux disease SNOMED Code(s): 207094890 Code(s): K21.9 - GASTRO-ESOPHAGEAL REFLUX DISEASE WITHOUT ESOPHAGITIS Status: Chronic Priority: Low Current Visit: No - Problem List Review Problem List Initiated/Reviewed/Updated: Yes - My Orders Last 24 Hours: My Active Orders 05/15/19 09:46 Transfer Patient (Change bed) [ADT] Routine 05/15/19 13:06 Lumbar Spine 2 or 3V [CR] Routine Renal Comp [US] Routine Thoracic Spine 2V [CR] Routine 05/15/19 13:15 Sodium Chloride 0.9% [Normal Saline] 1,000 ml IV ASDIRECTED 05/15/19 14:30 CULTURE URINE [RM] Routine 05/15/19 14:54 Discontinue Telemetry Monitoring [Cardiac Monitoring Discontinue] [RC] Click to Edit 05/15/19 18:00 Dronabinol [Marinol] 2.5 mg PO DAILY@1800 05/16/19 05:11 BASIC METABOLIC PANEL,BMP [CHEM] Routine SEDIMENTATION RATE AUTO [HEME] Routine 05/16/19 08:00 methylPREDNISolone Sod Succ [Solu-MEDROL] 40 mg IVPUSH ONETIME ONE - Assessment Assessment:: as above - Plan Plan:: as above. Single dose of 7mg Warfarin given today. Recheck INR in AM 05/13/2019 Patient is now in sinus rhythm, converted with oral therapy. Will consult with Dr Vela in regards to starting anticoagulation such as Eliquis. Echo done today. Patient's zoloft stopped at the last hospitalization due to hyponatremia. Patient states feeling down, will start Remeron tonight. PT/OT consult to see if the patient will qualify for swingbed due to her repeated hospitalizations. Son (Aime) states he is unsure if the patient is able to return to home, he has been at her house a majority of the day when she was recently discharged from hospital. Will need to discuss with the patient her thoughts in regards to going back to her house. Recheck labs in the morning. Dominique Armijo,VERITO 05/14/19 Still in normal sinus rhythm. However blood pressure quit low this morning ( hypotensive). Also having a lot of pain. Long discussion with her and sons x2 regarding multiple medication options for atrial fibrillation, hypotension/ hypertension, and pain secondary to rheumatoid arthritis. Still requiring inpatient status. Discharge plans discussed. 05/15/19 Dane Mendoza MD Feels a little bit improved. Still pain in the back. Kidney function is continuing to deteriate. Need to start IV fluids. She requires inpatient status to continue monitoring renal status, fluid status, blood pressure, pulse.
[2019-05-16] MEDS: Sodium Chloride 0.9% 1,000 ML IV SCH (03:07)
[2019-05-16] MEDS ORDERED: methylPREDNISolone Sodium Succinate 40 MG/1 ML SDV IVPUSH ONE (08:00)
[2019-05-16 08:22] VITALS: BP 144/63; PULSE 69
[2019-05-16] MEDS: Brimonidine 0.2% Ophth Soln 5 ML Bottle EYEBOTH SCH (08:24)
[2019-05-16] MEDS: Fluticasone Propionate Nasal Spray 16 GM Bottle NASBOTH SCH (08:24)
[2019-05-16] MEDS: Timolol Maleate 0.5% Ophth Soln 5 ML Bottle EYEBOTH SCH (08:25)
[2019-05-16] MEDS: Acetaminophen/HYDROcodone 325-5 MG Tab PO SCH ×2 (08:25→11:52)
[2019-05-16] MEDS: Diltiazem 120 MG Cap.CD PO SCH (08:26)
[2019-05-16] MEDS: Atenolol 25 MG Tab PO SCH (08:27)
[2019-05-16] MEDS: Hydrochlorothiazide/Triamterene 50-75 MG Tab PO SCH (08:27)
[2019-05-16] MEDS: Sodium Chloride 0.9% 10 ML Syringe FLUSH SCH (08:28)
[2019-05-16] MEDS ORDERED: Methotrexate 2.5 MG Tab PO SCH ×2 (14:00)
--- NOTE | 2019-05-17 23:48 | PCM.PN ---
- General Info Date of Service: 05/16/19 Admission Dx/Problem (Free Text): Patient admitted for treatment of weakness, afib with RVR. Subjective Update: Patient reports that she feels a bit better today. No new complaints. Functional Status: Reports: Tolerating Diet, Ambulating - Review of Systems General: Reports: Weakness HEENT: Reports: No Symptoms Pulmonary: Reports: No Symptoms Cardiovascular: Reports: No Symptoms Gastrointestinal: Reports: No Symptoms Genitourinary: Reports: No Symptoms Musculoskeletal: Reports: Back Pain, Joint Pain, Joint Swelling Skin: Reports: No Symptoms Neurological: Reports: Weakness Psychiatric: Reports: Depression, Anxiety, Other (dreaming) - Patient Data Vitals - Most Recent: Last Vital Signs Temp 97.0 F 05/16/19 08:00 Pulse 69 05/16/19 08:27 Resp 18 05/16/19 08:00 BP 144/63 H 05/16/19 08:27 Pulse Ox 95 05/16/19 08:00 Weight - Most Recent: 202 lb Tim Results Last 24 Hours: Microbiology 05/15/19 14:30 Urine Culture - Final Urine, Clean Catch MIXED POSITIVE JOE DAY 2 Med Orders - Current: Current Medications Discontinued Medications Acetaminophen (Tylenol) 650 mg PO Q4H PRN PRN Reason: Pain/Fever Last Admin: 05/14/19 01:19 Dose: 650 mg Hydrocodone Bitart/Acetaminophen ([place] 325-5 Mg) 1 tab PO ASDIRECTED PRN PRN Reason: Pain Hydrocodone Bitart/Acetaminophen ([place] 325-5 Mg) 1 tab PO QID@08,12,18,21 [facility] Hydrocodone Bitart/Acetaminophen ([place] 325-5 Mg) 1 tab PO ASDIRECTED PRN PRN Reason: Pain Hydrocodone Bitart/Acetaminophen ([place] 325-5 Mg) 1 - 2 tab PO QID@08,12,18,21 [facility] Last Admin: 05/16/19 11:52 Dose: 1 tab Hydrocodone Bitart/Acetaminophen ([place] 325-5 Mg) 1 tab PO Q3H PRN PRN Reason: Pain Last Admin: 05/16/19 01:22 Dose: 1 tab Albuterol/Ipratropium (Duoneb 3.0-0.5 Mg/3 Ml) 3 ml INH Q4H PRN PRN Reason: Shortness of Breath Atenolol (Tenormin) 25 mg PO DAILY [facility] Atenolol (Tenormin) 25 mg PO DAILY [facility] Last Admin: 05/16/19 08:27 Dose: 25 mg Brimonidine Tartrate (Alphagan 0.2% Ophth Soln) 0 ml EYEBOTH BID [facility] Last Admin: 05/16/19 08:24 Dose: 1 drop Coenzyme Q10 (Coenzyme Q10) 100 mg PO DAILY [facility] Coenzyme Q10 (Coenzyme Q10) 100 mg PO DAILY [facility] Last Admin: 05/14/19 09:16 Dose: 100 mg Diltiazem HCl (Cardizem Cd) 240 mg PO DAILY [facility] Last Admin: 05/16/19 08:26 Dose: 240 mg Diltiazem HCl (Cardizem Cd) 120 mg PO BEDTIME [facility] Last Admin: 05/13/19 20:40 Dose: 120 mg Docusate Sodium (Colace) 100 mg PO QPM [facility] Docusate Sodium (Colace) 100 mg PO QPM [facility] Last Admin: 05/15/19 17:35 Dose: 100 mg Dronabinol (Marinol) 2.5 mg PO BID [facility] Last Admin: 05/14/19 17:17 Dose: 2.5 mg Dronabinol (Marinol) 2.5 mg PO DAILY@1800 [facility] Last Admin: 05/15/19 17:35 Dose: 2.5 mg Enoxaparin Sodium (Lovenox) 40 mg SUBCUT DAILY [facility] Last Admin: 05/14/19 09:11 Dose: 40 mg Famotidine (Pepcid) 20 mg PO BEDTIME [facility] Last Admin: 05/15/19 20:57 Dose: 20 mg Fluticasone Propionate (Flonase) 0 gm NASBOTH DAILY [facility] Last Admin: 05/16/19 08:24 Dose: 1 spray Furosemide (Lasix) 20 mg IVPUSH DAILY [facility] Last Admin: 05/14/19 09:24 Dose: 20 mg Guaifenesin (Mucinex) 600 mg PO DAILY PRN PRN Reason: Cough Guaifenesin (Mucinex) 600 mg PO DAILY PRN PRN Reason: Cough Sodium Chloride (Normal Saline) 1,000 mls @ 75 mls/hr IV ASDIRECTED [facility] Last Admin: 05/16/19 03:07 Dose: 75 mls/hr Lisinopril (Prinivil) 10 mg PO DAILY [facility] Lisinopril (Prinivil) 10 mg PO DAILY [facility] Last Admin: 05/14/19 09:16 Dose: 10 mg Lovastatin (Mevacor) 40 mg PO QPM [facility] Last Admin: 05/14/19 17:17 Dose: Not Given Methotrexate (Methotrexate) 5 mg PO Q7D [facility] Methotrexate (Methotrexate) 7.5 mg PO Q7D [facility] Last Admin: 05/16/19 14:22 Dose: 7.5 mg Methylprednisolone Sodium Succinate (Solu-Medrol) 40 mg IVPUSH ONETIME ONE Stop: 05/14/19 18:01 Last Admin: 05/14/19 17:18 Dose: 40 mg Methylprednisolone Sodium Succinate (Solu-Medrol) 40 mg IVPUSH ONETIME ONE Stop: 05/16/19 08:01 Last Admin: 05/16/19 08:25 Dose: 40 mg Mirtazapine (Remeron) 7.5 mg PO BEDTIME [facility] Last Admin: 05/15/19 20:58 Dose: 7.5 mg Non-Formulary Medication (Brimonidine Tartrate/Timolol [Combigan 0.2%-0.5% Eye Drops]) 1 drop EYEBOTH BID [facility] Non-Formulary Medication (Diltiazem [Cardizem Cd]) 1 tab PO DAILY [facility] Non-Formulary Medication (Lovastatin [Lovastatin]) 40 mg PO QPM [facility] Non-Formulary Medication (Ranitidine [Zantac]) 150 mg PO BEDTIME [facility] Non-Formulary Medication (Triamterene/Hydrochlorothiazid [Triamterene-Hctz 37.5- 25 Mg]) 1 tab PO DAILY [facility] Non-Formulary Medication (Ranitidine [Zantac]) 150 mg PO BEDTIME [facility] Ondansetron HCl (Zofran Odt) 4 mg PO Q6H PRN PRN Reason: Nausea/Vomiting Ondansetron HCl (Zofran Odt) 4 mg PO Q6H PRN PRN Reason: Nausea/Vomiting Last Admin: 05/11/19 20:14 Dose: 4 mg Sodium Chloride (Saline Flush) 10 ml FLUSH ASDIRECTED PRN PRN Reason: Keep Vein Open Last Admin: 05/14/19 09:27 Dose: 10 ml Sodium Chloride (Saline Flush) 10 ml FLUSH ASDIRECTED PRN PRN Reason: Keep Vein Open Last Admin: 05/15/19 14:23 Dose: 10 ml Sodium Chloride (Saline Flush) 10 ml FLUSH Q12HR [facility] Last Admin: 05/16/19 08:28 Dose: 10 ml Temazepam (Restoril) 15 mg PO BEDTIME PRN PRN Reason: Insomnia Last Admin: 05/11/19 23:57 Dose: 15 mg Timolol Maleate (Timoptic 0.5% Ophth Soln) 0 ml EYEBOTH BID [facility] Last Admin: 05/16/19 08:25 Dose: 1 drop Triamterene/HCTZ (Maxzide 50-75 Mg) 0.5 each PO DAILY [facility] Last Admin: 05/16/19 08:27 Dose: 0.5 each Warfarin Sodium (Coumadin) 5 mg PO ONETIME ONE Stop: 05/11/19 19:37 Last Admin: 05/11/19 20:08 Dose: 5 mg Warfarin Sodium 2 mg/ Warfarin (Sodium 5 mg) 7 mg PO ONETIME ONE Stop: 05/12/19 13:44 Last Admin: 05/12/19 14:35 Dose: 7 mg - Exam General: Alert, Cooperative, No Acute Distress HEENT: Mucous Membr. Moist/[place] Neck: Trachea Midline, No JVD Lungs: Clear to Auscultation, Normal Respiratory Effort Cardiovascular: Regular Rate, Regular Rhythm GI/Abdominal Exam: Soft, Non-Tender, No Distention (Female) Exam: Deferred Back Exam: Decreased Range of Motion, Other (kypho-scoliosis) Extremities: Non-Tender Skin: Warm, Dry, Intact Neurological: No New Focal Deficit Psy/Mental Status: Alert, Depressed - Problem List & Annotations (1) Afib SNOMED Code(s): 37051269 Code(s): I48.91 - UNSPECIFIED ATRIAL FIBRILLATION Status: Acute Priority : High Qualifiers: Atrial fibrillation type: paroxysmal Annotation/Comment:: (2) Weakness SNOMED Code(s): 89392795 Code(s): R53.1 - WEAKNESS Status: Acute Priority: High (3) CHF (congestive heart failure) SNOMED Code(s): 01496577 Code(s): I50.9 - HEART FAILURE, UNSPECIFIED Status: Chronic Priority: Medium Onset Date: 05/04/16 Qualifiers: Qualified Code(s): I50.9 - Heart failure, unspecified Annotation/Comment:: (4) HTN, Benign hypertension SNOMED Code(s): 72850213 Code(s): I10 - ESSENTIAL (PRIMARY) HYPERTENSION Status: Acute Priority: Medium (5) Heart disease SNOMED Code(s): 38254047 Code(s): I51.9 - HEART DISEASE, UNSPECIFIED Status: Acute Priority: Medium (6) Hyponatremia SNOMED Code(s): 31175604 Code(s): E87.1 - HYPO-OSMOLALITY AND HYPONATREMIA Status: Acute (7) Mixed anxiety depressive disorder SNOMED Code(s): 721253094 Code(s): F41.8 - OTHER SPECIFIED ANXIETY DISORDERS Status: Acute Priority : Low (8) Rheumatoid arthritis SNOMED Code(s): 99068273 Code(s): M06.9 - RHEUMATOID ARTHRITIS, UNSPECIFIED Status: Acute Qualifiers: (9) COPD (chronic obstructive pulmonary disease) SNOMED Code(s): 92792899 Code(s): J44.9 - CHRONIC OBSTRUCTIVE PULMONARY DISEASE, UNSPECIFIED Status : Chronic Priority: Medium Qualifiers: COPD type: chronic bronchitis Chronic bronchitis type: simple Qualified Code(s): J41.0 - Simple chronic bronchitis (10) Hyperlipidemia SNOMED Code(s): 83030372 Code(s): E78.5 - HYPERLIPIDEMIA, UNSPECIFIED Status: Chronic Priority: Medium Qualifiers: Hyperlipidemia type: moderate mixed hyperlipidemia not requiring statin therapy Qualified Code(s): E78.2 - Mixed hyperlipidemia (11) Hypertension SNOMED Code(s): 37482963 Code(s): I10 - ESSENTIAL (PRIMARY) HYPERTENSION Status: Chronic Priority : Low (12) Peptic reflux disease SNOMED Code(s): 051507775 Code(s): K21.9 - GASTRO-ESOPHAGEAL REFLUX DISEASE WITHOUT ESOPHAGITIS Status: Chronic Priority: Low - Problem List Review Problem List Initiated/Reviewed/Updated: Yes - Assessment Assessment:: as above - Plan Plan:: as above. Single dose of 7mg Warfarin given today. Recheck INR in AM 05/13/2019 Patient is now in sinus rhythm, converted with oral therapy. Will consult with Dr Vela in regards to starting anticoagulation such as Eliquis. Echo done today. Patient's zoloft stopped at the last hospitalization due to hyponatremia. Patient states feeling down, will start Remeron tonight. PT/OT consult to see if the patient will qualify for swingbed due to her repeated hospitalizations. Son (Aime) states he is unsure if the patient is able to return to home, he has been at her house a majority of the day when she was recently discharged from hospital. Will need to discuss with the patient her thoughts in regards to going back to her house. Recheck labs in the morning. Dominique Armijo,VERITO 05/14/19 Still in normal sinus rhythm. However blood pressure quit low this morning ( hypotensive). Also having a lot of pain. Long discussion with her and sons x2 regarding multiple medication options for atrial fibrillation, hypotension/ hypertension, and pain secondary to rheumatoid arthritis. Still requiring inpatient status. Discharge plans discussed. 05/15/19 Dane Mendoza MD Feels a little bit improved. Still pain in the back. Kidney function is continuing to deteriorate. Need to start IV fluids. She requires inpatient status to continue monitoring renal status, fluid status, blood pressure, pulse. She refuses transfer to [place] wanting to stay in [place] for continuing medical care. 05/16/19 (late entry) Dane Mendoza MD Feels better today but still weak. Kidney function has improved. intermediate manager anticoagulation contraindicated due to history of significant GI bleed. Today she is medically improved to transfer into swing bed to continue adjustments in medications for her chronic pain and for PT-OT for her generalized weakness.
--- NOTE | 2019-05-17 23:50 | PCM.DCSUM1 ---
Discharge Summary - Hospital Course Diagnosis: Stroke: No - Discharge Data Discharge Date: 05/16/19 Discharge Disposition: DC/Tfer W/I Hosp To Swing [facility] Condition: Good - Discharge Diagnosis/Problem(s) (1) Afib SNOMED Code(s): 80676503 ICD Code: I48.91 - UNSPECIFIED ATRIAL FIBRILLATION Status: Acute Priority : High Problem Details: Qualifiers: Atrial fibrillation type: paroxysmal (2) Weakness SNOMED Code(s): 68820098 ICD Code: R53.1 - WEAKNESS Status: Acute Priority: High (3) CHF (congestive heart failure) SNOMED Code(s): 25374735 ICD Code: I50.9 - HEART FAILURE, UNSPECIFIED Status: Chronic Priority: Medium Onset Date: 05/04/16 Problem Details: Qualifiers: Qualified Code(s): I50.9 - Heart failure, unspecified (4) HTN, Benign hypertension SNOMED Code(s): 05350545 ICD Code: I10 - ESSENTIAL (PRIMARY) HYPERTENSION Status: Acute Priority: Medium (5) Heart disease SNOMED Code(s): 95125774 ICD Code: I51.9 - HEART DISEASE, UNSPECIFIED Status: Acute Priority: Medium (6) Hyponatremia SNOMED Code(s): 42601245 ICD Code: E87.1 - HYPO-OSMOLALITY AND HYPONATREMIA Status: Acute (7) Mixed anxiety depressive disorder SNOMED Code(s): 226889977 ICD Code: F41.8 - OTHER SPECIFIED ANXIETY DISORDERS Status: Acute Priority: Low (8) Rheumatoid arthritis SNOMED Code(s): 85521460 ICD Code: M06.9 - RHEUMATOID ARTHRITIS, UNSPECIFIED Status: Acute Qualifiers: (9) COPD (chronic obstructive pulmonary disease) SNOMED Code(s): 70455165 ICD Code: J44.9 - CHRONIC OBSTRUCTIVE PULMONARY DISEASE, UNSPECIFIED Status : Chronic Priority: Medium Qualifiers: COPD type: chronic bronchitis Chronic bronchitis type: simple Qualified Code(s): J41.0 - Simple chronic bronchitis (10) Hyperlipidemia SNOMED Code(s): 93384577 ICD Code: E78.5 - HYPERLIPIDEMIA, UNSPECIFIED Status: Chronic Priority: Medium Qualifiers: Hyperlipidemia type: moderate mixed hyperlipidemia not requiring statin therapy Qualified Code(s): E78.2 - Mixed hyperlipidemia (11) Hypertension SNOMED Code(s): 62668871 ICD Code: I10 - ESSENTIAL (PRIMARY) HYPERTENSION Status: Chronic Priority : Low (12) Peptic reflux disease SNOMED Code(s): 262064875 ICD Code: K21.9 - GASTRO-ESOPHAGEAL REFLUX DISEASE WITHOUT ESOPHAGITIS Status: Chronic Priority: Low - Patient Summary/Data Consults: Consultations 05/11/19 17:58 OT Evaluation and Treatment [CONS] Routine PT Evaluation and Treatment [CONS] Routine - Patient Instructions Diet: Heart Healthy Diet Activity: As Tolerated Driving: Do Not Drive Showering/Bathing: May Shower - Discharge Plan *PRESCRIPTION DRUG MONITORING PROGRAM REVIEWED*: Not Applicable *COPY OF PRESCRIPTION DRUG MONITORING REPORT IN PATIENT MASHA: Not Applicable Home Medications: Home Meds Atenolol [Tenormin] 1 tab PO DAILY 11/05/14 [History] Diltiazem [Cardizem CD] 1 tab PO DAILY 11/05/14 [History] Hydrocodone/Acetaminophen [Hydrocodon-Acetaminophen 5-325] 1 - 2 tab PO QID@08, 12,18,21 11/05/14 [History] Lisinopril 10 mg PO DAILY 11/05/14 [History] Lovastatin 40 mg PO QPM 11/05/14 [History] Folic Acid 1 mg PO QPM 05/04/16 [History] Mv-Mn/FA/Vit K/Lycop/Lut/Zeaxa [Ocuvite Eye + Multi Tablet] 1 cap PO DAILY 05/04 [History] Triamterene/Hydrochlorothiazid [Triamterene-HCTZ 37.5-25 MG] 1 tab PO DAILY [History] Albuterol/Ipratropium [DuoNeb 3.0-0.5 MG/3 ML] 1 vial INH Q4H PRN 04/29/19 [ History] Brimonidine Tartrate/Timolol [Combigan 0.2%-0.5% Eye Drops] 1 drop EYEBOTH BID 04/29/19 [History] Cyanocobalamin (Vitamin B12) [Vitamin B12] 1,000 mcg IM Q30D 04/29/19 [History] Docusate Sodium [Colace] 100 mg PO QPM 04/29/19 [History] Hydrocodone/Acetaminophen [Hydrocodon-Acetaminophen 5-325] 1 tab PO ASDIRECTED PRN 04/29/19 [History] Ranitidine [Zantac] 150 mg PO BEDTIME 04/29/19 [History] Ondansetron [Zofran ODT] 4 mg PO Q6H PRN tab.dis 05/05/19 [Rx] guaiFENesin [Mucinex] 600 mg PO DAILY PRN tab.er 05/05/19 [Rx] Fluticasone Propionate [Flonase] 1 puff NASBOTH DAILY 05/11/19 [History] Oxygen Therapy Mode: Room Air Patient Handouts: Methotrexate tablets, Dronabinol, THC capsules Forms: ED Department Discharge Referrals: Dominique Armijo NP [Primary Care Provider] - - Discharge Summary/Plan Comment DC Time >30 min.: No - Patient Data Vitals - Most Recent: Last Vital Signs Temp 97.0 F 05/16/19 08:00 Pulse 69 05/16/19 08:27 Resp 18 05/16/19 08:00 BP 144/63 H 05/16/19 08:27 Pulse Ox 95 05/16/19 08:00 Weight - Most Recent: 202 lb SMITH Results - Last 24 hrs: Microbiology 05/15/19 14:30 Urine Culture - Final Urine, Clean Catch MIXED POSITIVE JOE DAY 2 Med Orders - Current: Current Medications Discontinued Medications Acetaminophen (Tylenol) 650 mg PO Q4H PRN PRN Reason: Pain/Fever Last Admin: 05/14/19 01:19 Dose: 650 mg Hydrocodone Bitart/Acetaminophen ([place] 325-5 Mg) 1 tab PO ASDIRECTED PRN PRN Reason: Pain Hydrocodone Bitart/Acetaminophen ([place] 325-5 Mg) 1 tab PO QID@,,, HUNTER Hydrocodone Bitart/Acetaminophen ([place] 325-5 Mg) 1 tab PO ASDIRECTED PRN PRN Reason: Pain Hydrocodone Bitart/Acetaminophen ([place] 325-5 Mg) 1 - 2 tab PO QID@,,18, HUNTER Last Admin: 05/16/19 11:52 Dose: 1 tab Hydrocodone Bitart/Acetaminophen ([place] 325-5 Mg) 1 tab PO Q3H PRN PRN Reason: Pain Last Admin: 05/16/19 01:22 Dose: 1 tab Albuterol/Ipratropium (Duoneb 3.0-0.5 Mg/3 Ml) 3 ml INH Q4H PRN PRN Reason: Shortness of Breath Atenolol (Tenormin) 25 mg PO DAILY [facility] Atenolol (Tenormin) 25 mg PO DAILY [facility] Last Admin: 05/16/19 08:27 Dose: 25 mg Brimonidine Tartrate (Alphagan 0.2% Ophth Soln) 0 ml EYEBOTH BID [facility] Last Admin: 05/16/19 08:24 Dose: 1 drop Coenzyme Q10 (Coenzyme Q10) 100 mg PO DAILY [facility] Coenzyme Q10 (Coenzyme Q10) 100 mg PO DAILY [facility] Last Admin: 05/14/19 09:16 Dose: 100 mg Diltiazem HCl (Cardizem Cd) 240 mg PO DAILY [facility] Last Admin: 05/16/19 08:26 Dose: 240 mg Diltiazem HCl (Cardizem Cd) 120 mg PO BEDTIME [facility] Last Admin: 05/13/19 20:40 Dose: 120 mg Docusate Sodium (Colace) 100 mg PO QPM [facility] Docusate Sodium (Colace) 100 mg PO QPM [facility] Last Admin: 05/15/19 17:35 Dose: 100 mg Dronabinol (Marinol) 2.5 mg PO BID [facility] Last Admin: 05/14/19 17:17 Dose: 2.5 mg Dronabinol (Marinol) 2.5 mg PO DAILY@1800 [facility] Last Admin: 05/15/19 17:35 Dose: 2.5 mg Enoxaparin Sodium (Lovenox) 40 mg SUBCUT DAILY [facility] Last Admin: 05/14/19 09:11 Dose: 40 mg Famotidine (Pepcid) 20 mg PO BEDTIME [facility] Last Admin: 05/15/19 20:57 Dose: 20 mg Fluticasone Propionate (Flonase) 0 gm NASBOTH DAILY [facility] Last Admin: 05/16/19 08:24 Dose: 1 spray Furosemide (Lasix) 20 mg IVPUSH DAILY [facility] Last Admin: 05/14/19 09:24 Dose: 20 mg Guaifenesin (Mucinex) 600 mg PO DAILY PRN PRN Reason: Cough Guaifenesin (Mucinex) 600 mg PO DAILY PRN PRN Reason: Cough Sodium Chloride (Normal Saline) 1,000 mls @ 75 mls/hr IV ASDIRECTED [facility] Last Admin: 05/16/19 03:07 Dose: 75 mls/hr Lisinopril (Prinivil) 10 mg PO DAILY [facility] Lisinopril (Prinivil) 10 mg PO DAILY [facility] Last Admin: 05/14/19 09:16 Dose: 10 mg Lovastatin (Mevacor) 40 mg PO QPM [facility] Last Admin: 05/14/19 17:17 Dose: Not Given Methotrexate (Methotrexate) 5 mg PO Q7D [facility] Methotrexate (Methotrexate) 7.5 mg PO Q7D [facility] Last Admin: 05/16/19 14:22 Dose: 7.5 mg Methylprednisolone Sodium Succinate (Solu-Medrol) 40 mg IVPUSH ONETIME ONE Stop: 05/14/19 18:01 Last Admin: 05/14/19 17:18 Dose: 40 mg Methylprednisolone Sodium Succinate (Solu-Medrol) 40 mg IVPUSH ONETIME ONE Stop: 05/16/19 08:01 Last Admin: 05/16/19 08:25 Dose: 40 mg Mirtazapine (Remeron) 7.5 mg PO BEDTIME [facility] Last Admin: 05/15/19 20:58 Dose: 7.5 mg Non-Formulary Medication (Brimonidine Tartrate/Timolol [Combigan 0.2%-0.5% Eye Drops]) 1 drop EYEBOTH BID [facility] Non-Formulary Medication (Diltiazem [Cardizem Cd]) 1 tab PO DAILY [facility] Non-Formulary Medication (Lovastatin [Lovastatin]) 40 mg PO QPM [facility] Non-Formulary Medication (Ranitidine [Zantac]) 150 mg PO BEDTIME [facility] Non-Formulary Medication (Triamterene/Hydrochlorothiazid [Triamterene-Hctz 37.5- 25 Mg]) 1 tab PO DAILY [facility] Non-Formulary Medication (Ranitidine [Zantac]) 150 mg PO BEDTIME [facility] Ondansetron HCl (Zofran Odt) 4 mg PO Q6H PRN PRN Reason: Nausea/Vomiting Ondansetron HCl (Zofran Odt) 4 mg PO Q6H PRN PRN Reason: Nausea/Vomiting Last Admin: 05/11/19 20:14 Dose: 4 mg Sodium Chloride (Saline Flush) 10 ml FLUSH ASDIRECTED PRN PRN Reason: Keep Vein Open Last Admin: 05/14/19 09:27 Dose: 10 ml Sodium Chloride (Saline Flush) 10 ml FLUSH ASDIRECTED PRN PRN Reason: Keep Vein Open Last Admin: 05/15/19 14:23 Dose: 10 ml Sodium Chloride (Saline Flush) 10 ml FLUSH Q12HR [facility] Last Admin: 05/16/19 08:28 Dose: 10 ml Temazepam (Restoril) 15 mg PO BEDTIME PRN PRN Reason: Insomnia Last Admin: 05/11/19 23:57 Dose: 15 mg Timolol Maleate (Timoptic 0.5% Ophth Soln) 0 ml EYEBOTH BID [facility] Last Admin: 05/16/19 08:25 Dose: 1 drop Triamterene/HCTZ (Maxzide 50-75 Mg) 0.5 each PO DAILY [facility] Last Admin: 05/16/19 08:27 Dose: 0.5 each Warfarin Sodium (Coumadin) 5 mg PO ONETIME ONE Stop: 05/11/19 19:37 Last Admin: 05/11/19 20:08 Dose: 5 mg Warfarin Sodium 2 mg/ Warfarin (Sodium 5 mg) 7 mg PO ONETIME ONE Stop: 05/12/19 13:44 Last Admin: 05/12/19 14:35 Dose: 7 mg
== END 2019-05-16 14:29 | disposition swing bed (61) | DRG 309 ==
LOC: LL.ED 16:24 → UNDOADMIN 17:15 → LL.MS 17:15 → UNDODISIN 05-16 14:29
PROVIDERS: ADMIT Emergency Medicine; ATTEND Family Medicine
DX: I48.0 Paroxysmal atrial fibrillation (principal); E87.1 Hypo-osmolality and hyponatremia; I48.91 Unspecified atrial fibrillation; E53.1 Pyridoxine deficiency; E78.5 Hyperlipidemia, unspecified; I42.9 Cardiomyopathy, unspecified; J44.9 Chronic obstructive pulmonary disease, unspecified; I50.9 Heart failure, unspecified; K21.9 Gastro-esophageal reflux disease without esophagitis; K59.09 Other constipation; M54.9 Dorsalgia, unspecified; M54.2 Cervicalgia; M19.90 Unspecified osteoarthritis, unspecified site; R53.1 Weakness; G89.29 Other chronic pain; M81.0 Age-related osteoporosis without current pathological fracture; D64.9 Anemia, unspecified; Z90.49 Acquired absence of other specified parts of digestive tract; Z90.710 Acquired absence of both cervix and uterus; Z96.659 Presence of unspecified artificial knee joint; Z79.899 Other long term (current) drug therapy; Z88.8 Allergy status to other drugs, medicaments and biological substances; I11.0 Hypertensive heart disease with heart failure; F41.8 Other specified anxiety disorders; M06.9 Rheumatoid arthritis, unspecified; I35.0 Nonrheumatic aortic (valve) stenosis; I05.0 Rheumatic mitral stenosis; K44.9 Diaphragmatic hernia without obstruction or gangrene
CPT/HCPCS: 36415; 71046; 72070; 72100; 76770; 80048; 80053; 81001; 82550; 83605; 83735; 83880; 84484; 85025; 85379; 85610; 85652; 86140; 87086; 93005; 93306; 97110-GO; 97110-GP; 97116-GP; 97161-GP; 97165-GO; 97530-GO; 97530-GP; 99285-25; A9270-GY; J1650; J1940; J2920; J7030; J8610; Q0167

== ENCOUNTER 2019-05-16 13:56 | Inpatient (IN) | payer MEDICARE, BC, MEDICAID, OTHER ==
[2019-05-16] MEDS ORDERED: Albuterol/Ipratropium 3.0-0.5 MG/3 ML Neb Soln INH PRN (14:00)
[2019-05-16] MEDS ORDERED: guaiFENesin 600 MG Tab.ER PO PRN (14:00)
[2019-05-16] MEDS: Methotrexate 2.5 MG Tab PO SCH (16:47)
[2019-05-16] MEDS: Brimonidine 0.2% Ophth Soln 5 ML Bottle EYEBOTH SCH (17:41)
[2019-05-16] MEDS: Acetaminophen/HYDROcodone 325-5 MG Tab PO PRN (17:41)
[2019-05-16] MEDS: Dronabinol 2.5 MG Cap PO SCH (17:41)
[2019-05-16] MEDS: Docusate Sodium 100 MG Cap PO SCH (17:41)
[2019-05-16] MEDS: Timolol Maleate 0.5% Ophth Soln 5 ML Bottle EYEBOTH SCH (17:42)
[2019-05-16] MEDS: Acetaminophen/HYDROcodone 325-5 MG Tab PO SCH ×2 (17:43→20:09)
[2019-05-16] MEDS ORDERED: Mirtazapine 15 MG Tab PO SCH (20:00)
[2019-05-16] MEDS: Famotidine 20 MG Tab PO SCH (20:08)
--- NOTE | 2019-05-17 00:07 | PCM.PN ---
- General Info Date of Service: 05/16/19 Functional Status: Reports: Tolerating Diet - Review of Systems General: Reports: Weakness HEENT: Reports: No Symptoms Pulmonary: Reports: No Symptoms Cardiovascular: Reports: No Symptoms Gastrointestinal: Reports: No Symptoms Genitourinary: Reports: No Symptoms Musculoskeletal: Reports: Back Pain, Joint Pain (multiple) Skin: Reports: No Symptoms Neurological: Reports: Weakness Psychiatric: Reports: Other (lots of dreams last night) - Patient Data Vitals - Most Recent: Last Vital Signs Temp 98.1 F 05/16/19 14:42 Pulse 68 05/16/19 14:42 Resp 16 05/16/19 14:42 BP 137/59 L 05/16/19 14:42 Pulse Ox 97 05/16/19 14:42 Weight - Most Recent: 202 lb I&O - Last 24 Hours: Intake & Output 05/16/19 05/16/19 05/17/19 14:59 22:59 06:59 Intake Total 300 Balance 300 Med Orders - Current: Current Medications Hydrocodone Bitart/Acetaminophen ([place] 325-5 Mg) 1 - 2 tab PO QID@08,12,18,21 [facility] Last Admin: 05/16/19 20:09 Dose: 1 tab Hydrocodone Bitart/Acetaminophen ([place] 325-5 Mg) 1 tab PO Q3H PRN PRN Reason: Pain Last Admin: 05/16/19 17:41 Dose: 1 tab Albuterol/Ipratropium (Duoneb 3.0-0.5 Mg/3 Ml) 3 ml INH Q4H PRN PRN Reason: Shortness of Breath Atenolol (Tenormin) 25 mg PO DAILY [facility] Brimonidine Tartrate (Alph[place] 0.2% Ophth Soln) 0 ml EYEBOTH BID [facility] Last Admin: 05/16/19 17:41 Dose: 1 drop Diltiazem HCl (Cardizem Cd) 240 mg PO DAILY [facility] Docusate Sodium (Colace) 100 mg PO QPM [facility] Last Admin: 05/16/19 17:41 Dose: 100 mg Dronabinol (Marinol) 2.5 mg PO DAILY@1800 [facility] Last Admin: 05/16/19 17:41 Dose: 2.5 mg Famotidine (Pepcid) 20 mg PO BEDTIME [facility] Last Admin: 05/16/19 20:08 Dose: 20 mg Fluticasone Propionate (Flonase) 0 gm NASBOTH DAILY [facility] Guaifenesin (Mucinex) 600 mg PO DAILY PRN PRN Reason: Cough Methotrexate (Methotrexate) 7.5 mg PO Q7D [facility] Last Admin: 05/16/19 16:47 Dose: Not Given Mirtazapine (Remeron) 7.5 mg PO BEDTIME [facility] Last Admin: 05/16/19 20:09 Dose: 7.5 mg Timolol Maleate (Timoptic 0.5% Ophth Soln) 0 ml EYEBOTH BID [facility] Last Admin: 05/16/19 17:42 Dose: 1 drop Triamterene/HCTZ (Maxzide 50-75 Mg) 0.5 each PO DAILY [facility] - Exam General: Alert, Cooperative, No Acute Distress HEENT: Mucous Membr. Moist/[place] Neck: Trachea Midline, No JVD Lungs: Clear to Auscultation, Normal Respiratory Effort Cardiovascular: Regular Rate, Regular Rhythm GI/Abdominal Exam: Soft, Non-Tender, No Distention (Female) Exam: Deferred Back Exam: Decreased Range of Motion, Paraspinal Tenderness, Vertebral Tenderness, Other (kypho-scoliosis) Extremities: Normal Inspection, Non-Tender Skin: Warm, Dry, Intact Neurological: No New Focal Deficit Psy/Mental Status: Alert, Depressed - Problem List & Annotations (1) Afib SNOMED Code(s): 29303803 Code(s): I48.91 - UNSPECIFIED ATRIAL FIBRILLATION Status: Acute Priority : High Current Visit: No Qualifiers: Annotation/Comment:: (2) HTN, Benign hypertension SNOMED Code(s): 17316925 Code(s): I10 - ESSENTIAL (PRIMARY) HYPERTENSION Status: Acute Priority: Medium Current Visit: No (3) Hyponatremia SNOMED Code(s): 91043261 Code(s): E87.1 - HYPO-OSMOLALITY AND HYPONATREMIA Status: Acute Current Visit: No (4) Mixed anxiety depressive disorder SNOMED Code(s): 626362603 Code(s): F41.8 - OTHER SPECIFIED ANXIETY DISORDERS Status: Acute Priority : Low Current Visit: No (5) Rheumatoid arthritis SNOMED Code(s): 14041050 Code(s): M06.9 - RHEUMATOID ARTHRITIS, UNSPECIFIED Status: Acute Current Visit: No Qualifiers: (6) Weakness SNOMED Code(s): 46293559 Code(s): R53.1 - WEAKNESS Status: Acute Priority: High Current Visit: No (7) COPD (chronic obstructive pulmonary disease) SNOMED Code(s): 94622725 Code(s): J44.9 - CHRONIC OBSTRUCTIVE PULMONARY DISEASE, UNSPECIFIED Status : Chronic Priority: Medium Current Visit: No Qualifiers: COPD type: chronic bronchitis Chronic bronchitis type: simple Qualified Code(s): J41.0 - Simple chronic bronchitis (8) Hypertension SNOMED Code(s): 56287928 Code(s): I10 - ESSENTIAL (PRIMARY) HYPERTENSION Status: Chronic Priority : Low Current Visit: No (9) Peptic reflux disease SNOMED Code(s): 942277117 Code(s): K21.9 - GASTRO-ESOPHAGEAL REFLUX DISEASE WITHOUT ESOPHAGITIS Status: Chronic Priority: Low Current Visit: No - Problem List Review Problem List Initiated/Reviewed/Updated: Yes - My Orders Last 24 Hours: My Active Orders 05/16/19 14:00 Transfer Patient (Change bed) [ADT] Routine Oxygen Therapy [RC] .PRN Pulse Oximetry [RC] PRN RT Aerosol Therapy [RC] .PRN Up With Assistance [RC] ASDIRECTED VTE/DVT Education [RC] PER UNIT ROUTINE Vital Signs [RC] DAILY OT Evaluation and Treatment [CONS] Routine PT Evaluation and Treatment [CONS] Routine Acetaminophen/HYDROcodone [[place] 325-5 MG] 1 tab PO Q3H PRN Albuterol/Ipratropium [DuoNeb 3.0-0.5 MG/3 ML] 3 ml INH Q4H PRN Methotrexate 7.5 mg PO Q7D guaiFENesin [Mucinex] 600 mg PO DAILY PRN CHF Questionnaire [COMM] Routine Peripheral IV Discontinue [OM.PC] Routine 05/16/19 14:03 Patient Status [ADT] Routine 05/16/19 14:04 Code Status [Resuscitation Status] Routine 05/16/19 18:00 Acetaminophen/HYDROcodone [[place] 325-5 MG] 1 - 2 tab PO QID@08,12,18,21 Brimonidine [Alphagan 0.2% Ophth Soln] 0 ml EYEBOTH BID Docusate Sodium [Colace] 100 mg PO QPM Dronabinol [Marinol] 2.5 mg PO DAILY@1800 Timolol Maleate [Timoptic 0.5% Ophth Soln] 0 ml EYEBOTH BID 05/16/19 20:00 Famotidine [Pepcid] 20 mg PO BEDTIME Mirtazapine [Remeron] 7.5 mg PO BEDTIME 05/16/19 Breakfast Heart Healthy Diet [DIET] 05/17/19 08:00 Atenolol [Tenormin] 25 mg PO DAILY Diltiazem [Cardizem CD] 240 mg PO DAILY Fluticasone Propionate [Flonase] 0 gm NASBOTH DAILY HCTZ/Triamterene [Maxzide 50-75 MG] 0.5 each PO DAILY - Plan Plan:: 05/16/19 late entry Sheets Kelly HERRERA Recent hospitalization for mycoplasma pneumoniae, then home the back to ER for atrial fibrillation. She converted with medical therapy. Now stable for transfer into swing bed due to generalized weakness and need for PT-OT. She continues to have significant chronic pain secondary to her rheumatoid arthritis and significant kypho-scoliosis.
[2019-05-17] MEDS: Acetaminophen/HYDROcodone 325-5 MG Tab PO SCH ×4 (07:31→20:01)
[2019-05-17] MEDS: Hydrochlorothiazide/Triamterene 50-75 MG Tab PO SCH (07:32)
[2019-05-17] MEDS: Diltiazem 120 MG Cap.CD PO SCH (07:33)
[2019-05-17] MEDS: Atenolol 25 MG Tab PO SCH (07:33)
[2019-05-17] MEDS: Timolol Maleate 0.5% Ophth Soln 5 ML Bottle EYEBOTH SCH ×2 (07:35→17:21)
[2019-05-17] MEDS: Brimonidine 0.2% Ophth Soln 5 ML Bottle EYEBOTH SCH ×2 (07:37→17:21)
[2019-05-17] MEDS: Fluticasone Propionate Nasal Spray 16 GM Bottle NASBOTH SCH (07:37)
[2019-05-17] MEDS: Docusate Sodium 100 MG Cap PO SCH (17:20)
[2019-05-17] MEDS: Dronabinol 2.5 MG Cap PO SCH (17:21)
[2019-05-17] MEDS ORDERED: Mirtazapine 15 MG Tab PO SCH (20:00)
[2019-05-17] MEDS: Famotidine 20 MG Tab PO SCH (20:01)
--- NOTE | 2019-05-17 23:26 | PCM.PN ---
- General Info Date of Service: 05/17/19 Functional Status: Reports: Pain Controlled, Tolerating Diet - Review of Systems General: Reports: Weakness HEENT: Reports: No Symptoms Pulmonary: Reports: No Symptoms Cardiovascular: Reports: No Symptoms Gastrointestinal: Reports: No Symptoms Genitourinary: Reports: No Symptoms Musculoskeletal: Reports: Back Pain, Joint Pain, Joint Swelling Skin: Reports: No Symptoms Neurological: Reports: Weakness Psychiatric: Reports: Other (dreaming) - Patient Data Vitals - Most Recent: Last Vital Signs Temp 98.3 F 05/17/19 07:27 Pulse 80 05/17/19 07:33 Resp 18 05/17/19 07:27 BP 152/65 H 05/17/19 07:33 Pulse Ox 98 05/17/19 07:27 Weight - Most Recent: 202 lb I&O - Last 24 Hours: Intake & Output 05/17/19 05/17/19 05/18/19 14:59 22:59 06:59 Intake Total 120 240 Output Total 500 Balance -380 240 Med Orders - Current: Current Medications Hydrocodone Bitart/Acetaminophen ([place] 325-5 Mg) 1 - 2 tab PO QID@08,12,18,21 [facility] Last Admin: 05/17/19 20:01 Dose: 1 tab Hydrocodone Bitart/Acetaminophen ([place] 325-5 Mg) 1 tab PO Q3H PRN PRN Reason: Pain Last Admin: 05/16/19 17:41 Dose: 1 tab Albuterol/Ipratropium (Duoneb 3.0-0.5 Mg/3 Ml) 3 ml INH Q4H PRN PRN Reason: Shortness of Breath Atenolol (Tenormin) 25 mg PO DAILY [facility] Last Admin: 05/17/19 07:33 Dose: 25 mg Brimonidine Tartrate (Alphagan 0.2% Ophth Soln) 0 ml EYEBOTH BID [facility] Last Admin: 05/17/19 17:21 Dose: 1 drop Diltiazem HCl (Cardizem Cd) 240 mg PO DAILY [facility] Last Admin: 05/17/19 07:33 Dose: 240 mg Docusate Sodium (Colace) 100 mg PO QPM [facility] Last Admin: 05/17/19 17:20 Dose: 100 mg Dronabinol (Marinol) 2.5 mg PO DAILY@1800 [facility] Last Admin: 05/17/19 17:21 Dose: 2.5 mg Famotidine (Pepcid) 20 mg PO BEDTIME [facility] Last Admin: 05/17/19 20:01 Dose: 20 mg Fluticasone Propionate (Flonase) 0 gm NASBOTH DAILY [facility] Last Admin: 05/17/19 07:37 Dose: 1 spray Guaifenesin (Mucinex) 600 mg PO DAILY PRN PRN Reason: Cough Methotrexate (Methotrexate) 7.5 mg PO Q7D [facility] Last Admin: 05/16/19 16:47 Dose: Not Given Mirtazapine (Remeron) 15 mg PO BEDTIME [facility] Last Admin: 05/17/19 20:01 Dose: 15 mg Timolol Maleate (Timoptic 0.5% Ophth Soln) 0 ml EYEBOTH BID [facility] Last Admin: 05/17/19 17:21 Dose: 1 drop Triamterene/HCTZ (Maxzide 50-75 Mg) 0.5 each PO DAILY [facility] Last Admin: 05/17/19 07:32 Dose: 0.5 each Discontinued Medications Mirtazapine (Remeron) 7.5 mg PO BEDTIME [facility] Last Admin: 05/16/19 20:09 Dose: 7.5 mg - Exam General: Alert, Cooperative, No Acute Distress HEENT: Mucous Membr. Moist/[place] Neck: Trachea Midline, No JVD Lungs: Clear to Auscultation, Normal Respiratory Effort Cardiovascular: Regular Rate, Regular Rhythm GI/Abdominal Exam: Soft, Non-Tender, No Distention (Female) Exam: Deferred Back Exam: Decreased Range of Motion, Other (kypho-scoliosis) Extremities: Normal Inspection, Non-Tender Skin: Warm, Dry, Intact Neurological: No New Focal Deficit Psy/Mental Status: Alert, Normal Affect, Normal Mood - Problem List & Annotations (1) Afib SNOMED Code(s): 85721215 Code(s): I48.91 - UNSPECIFIED ATRIAL FIBRILLATION Status: Acute Priority : High Current Visit: No Qualifiers: Annotation/Comment:: (2) HTN, Benign hypertension SNOMED Code(s): 95250456 Code(s): I10 - ESSENTIAL (PRIMARY) HYPERTENSION Status: Acute Priority: Medium Current Visit: No (3) Hyponatremia SNOMED Code(s): 37545170 Code(s): E87.1 - HYPO-OSMOLALITY AND HYPONATREMIA Status: Acute Current Visit: No (4) Mixed anxiety depressive disorder SNOMED Code(s): 154091429 Code(s): F41.8 - OTHER SPECIFIED ANXIETY DISORDERS Status: Acute Priority : Low Current Visit: No (5) Rheumatoid arthritis SNOMED Code(s): 05785615 Code(s): M06.9 - RHEUMATOID ARTHRITIS, UNSPECIFIED Status: Acute Current Visit: No Qualifiers: (6) Weakness SNOMED Code(s): 81111605 Code(s): R53.1 - WEAKNESS Status: Acute Priority: High Current Visit: No (7) COPD (chronic obstructive pulmonary disease) SNOMED Code(s): 39652930 Code(s): J44.9 - CHRONIC OBSTRUCTIVE PULMONARY DISEASE, UNSPECIFIED Status : Chronic Priority: Medium Current Visit: No Qualifiers: COPD type: chronic bronchitis Chronic bronchitis type: simple Qualified Code(s): J41.0 - Simple chronic bronchitis (8) Hypertension SNOMED Code(s): 39864196 Code(s): I10 - ESSENTIAL (PRIMARY) HYPERTENSION Status: Chronic Priority : Low Current Visit: No (9) Peptic reflux disease SNOMED Code(s): 400788118 Code(s): K21.9 - GASTRO-ESOPHAGEAL REFLUX DISEASE WITHOUT ESOPHAGITIS Status: Chronic Priority: Low Current Visit: No - Problem List Review Problem List Initiated/Reviewed/Updated: Yes - My Orders Last 24 Hours: My Active Orders 05/17/19 08:00 Atenolol [Tenormin] 25 mg PO DAILY Diltiazem [Cardizem CD] 240 mg PO DAILY Fluticasone Propionate [Flonase] 0 gm NASBOTH DAILY HCTZ/Triamterene [Maxzide 50-75 MG] 0.5 each PO DAILY 05/17/19 20:00 Mirtazapine [Remeron] 15 mg PO BEDTIME - Plan Plan:: 05/16/19 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 She converted with medical therapy. Now stable for transfer into swing bed due to generalized weakness and need for PT-OT. She continues to have significant chronic pain secondary to her rheumatoid arthritis and significant kypho-scoliosis. 05/17/19 Dane Mendoza MD Still pain in her back and in her hands. No palpitations. Stillk vivid dreaming at night. Discussed medications and adjustments.
[2019-05-18] MEDS: Brimonidine 0.2% Ophth Soln 5 ML Bottle EYEBOTH SCH ×2 (08:44→17:54)
[2019-05-18] MEDS: Timolol Maleate 0.5% Ophth Soln 5 ML Bottle EYEBOTH SCH ×2 (08:45→17:54)
[2019-05-18] MEDS: Diltiazem 120 MG Cap.CD PO SCH (08:46)
[2019-05-18] MEDS: Hydrochlorothiazide/Triamterene 50-75 MG Tab PO SCH (08:47)
[2019-05-18] MEDS: Fluticasone Propionate Nasal Spray 16 GM Bottle NASBOTH SCH (08:47)
[2019-05-18] MEDS: Atenolol 25 MG Tab PO SCH (08:48)
[2019-05-18] MEDS: Acetaminophen/HYDROcodone 325-5 MG Tab PO SCH ×4 (08:49→20:10)
[2019-05-18] MEDS: Docusate Sodium 100 MG Cap PO SCH (17:54)
[2019-05-18] MEDS: Famotidine 20 MG Tab PO SCH (20:09)
[2019-05-19] MEDS: Timolol Maleate 0.5% Ophth Soln 5 ML Bottle EYEBOTH SCH ×2 (07:38→17:48)
[2019-05-19] MEDS: Brimonidine 0.2% Ophth Soln 5 ML Bottle EYEBOTH SCH ×2 (07:38→17:47)
[2019-05-19] MEDS: Fluticasone Propionate Nasal Spray 16 GM Bottle NASBOTH SCH (07:38)
[2019-05-19] MEDS: Diltiazem 120 MG Cap.CD PO SCH (07:38)
[2019-05-19] MEDS: Atenolol 25 MG Tab PO SCH (07:39)
[2019-05-19] MEDS: Hydrochlorothiazide/Triamterene 50-75 MG Tab PO SCH (07:39)
[2019-05-19] MEDS: Acetaminophen/HYDROcodone 325-5 MG Tab PO SCH ×4 (07:40→20:19)
[2019-05-19] MEDS: Docusate Sodium 100 MG Cap PO SCH (17:50)
[2019-05-20] MEDS: Acetaminophen/HYDROcodone 325-5 MG Tab PO PRN (06:10)
[2019-05-20] MEDS: Hydrochlorothiazide/Triamterene 50-75 MG Tab PO SCH (08:59)
[2019-05-20] MEDS: Acetaminophen/HYDROcodone 325-5 MG Tab PO SCH ×4 (09:00→20:06)
[2019-05-20] MEDS: Fluticasone Propionate Nasal Spray 16 GM Bottle NASBOTH SCH (09:01)
[2019-05-20] MEDS: Diltiazem 120 MG Cap.CD PO SCH (09:01)
[2019-05-20] MEDS: Atenolol 25 MG Tab PO SCH (09:01)
[2019-05-20] MEDS: Brimonidine 0.2% Ophth Soln 5 ML Bottle EYEBOTH SCH ×2 (09:02→17:48)
[2019-05-20] MEDS: Timolol Maleate 0.5% Ophth Soln 5 ML Bottle EYEBOTH SCH ×2 (09:11→17:48)
[2019-05-20] MEDS: Docusate Sodium 100 MG Cap PO SCH (17:49)
[2019-05-20] MEDS: Metoprolol Tartrate 25 MG Tab PO SCH (19:50)
--- NOTE | 2019-05-20 23:39 | PCM.PN ---
- General Info Date of Service: 05/20/19 Functional Status: Reports: New Symptoms (increasing pain) - Review of Systems General: Reports: Weakness HEENT: Reports: No Symptoms Pulmonary: Reports: No Symptoms Cardiovascular: Reports: Palpitations Gastrointestinal: Reports: Decreased Appetite Genitourinary: Reports: No Symptoms Musculoskeletal: Reports: Neck Pain, Shoulder Pain, Hand Pain, Back Pain, Leg Pain, Joint Pain, Joint Swelling Skin: Reports: No Symptoms Neurological: Reports: Confusion (markedly improved today) Psychiatric: Reports: Confusion (improved), Hallucinations (gone) - Patient Data Vitals - Most Recent: Last Vital Signs Temp 97.3 F 05/20/19 09:15 Pulse 104 H 05/20/19 09:15 Resp 20 05/20/19 09:15 BP 122/39 L 05/20/19 09:15 Pulse Ox 98 05/20/19 09:15 Weight - Most Recent: 202 lb I&O - Last 24 Hours: Intake & Output 05/20/19 05/20/19 05/21/19 14:59 22:59 06:59 Intake Total 100 50 Balance 100 50 Med Orders - Current: Current Medications Hydrocodone Bitart/Acetaminophen ([place] 325-5 Mg) 1 - 2 tab PO QID@08,12,18,21 [facility] [place] Last Admin: 05/20/19 20:06 Dose: 1 tab Hydrocodone Bitart/Acetaminophen ([place] 325-5 Mg) 1 tab PO Q3H PRN PRN Reason: Pain Last Admin: 05/20/19 06:10 Dose: 1 tab Albuterol/Ipratropium (Duoneb 3.0-0.5 Mg/3 Ml) 3 ml INH Q4H PRN PRN Reason: Shortness of Breath Brimonidine Tartrate (Alphagan 0.2% Ophth Soln) 0 ml EYEBOTH BID [facility] Last Admin: 05/20/19 17:48 Dose: 1 drop Diltiazem HCl (Cardizem Cd) 240 mg PO DAILY [facility] Last Admin: 05/20/19 09:01 Dose: 240 mg Docusate Sodium (Colace) 100 mg PO QPM [facility] Last Admin: 05/20/19 17:49 Dose: 100 mg Fluticasone Propionate (Flonase) 0 gm NASBOTH DAILY [facility] [place] Last Admin: 05/20/19 09:01 Dose: 1 spray Guaifenesin (Mucinex) 600 mg PO DAILY PRN PRN Reason: Cough Methotrexate (Methotrexate) 7.5 mg PO Q7D [facility] [place] Last Admin: 05/16/19 16:47 Dose: Not Given Metoprolol Tartrate (Lopressor) 25 mg PO Q12HR [facility] Last Admin: 05/20/19 19:50 Dose: Not Given Timolol Maleate (Timoptic 0.5% Ophth Soln) 0 ml EYEBOTH BID [facility] [place] Last Admin: 05/20/19 17:48 Dose: 1 drop Triamterene/HCTZ (Maxzide 50-75 Mg) 0.5 each PO DAILY [facility] [place] Last Admin: 05/20/19 08:59 Dose: 0.5 each Discontinued Medications Atenolol (Tenormin) 25 mg PO DAILY [facility] [place] Last Admin: 05/20/19 09:01 Dose: 25 mg Dronabinol (Marinol) 2.5 mg PO DAILY@1800 [facility] [place] Last Admin: 05/17/19 17:21 Dose: 2.5 mg Famotidine (Pepcid) 20 mg PO BEDTIME [facility] Last Admin: 05/18/19 20:09 Dose: 20 mg Mirtazapine (Remeron) 7.5 mg PO BEDTIME [facility] [place] Last Admin: 05/16/19 20:09 Dose: 7.5 mg Mirtazapine (Remeron) 15 mg PO BEDTIME [facility] Last Admin: 05/17/19 20:01 Dose: 15 mg - Exam Quality Assessment: DVT Prophylaxis (contraindicated due to history of significant GI bleed) HEENT: Mucous Membr. Moist/[place] Neck: Trachea Midline, No JVD Lungs: Clear to Auscultation, Normal Respiratory Effort Cardiovascular: Irregular Rhythm, Tachycardia GI/Abdominal Exam: Soft, Non-Tender, No Distention (Female) Exam: Deferred Back Exam: Decreased Range of Motion, Paraspinal Tenderness, Vertebral Tenderness, Other (kyphoscoliosis) Extremities: Limited Range of Motion, Other (synovial swelling) Skin: Warm, Dry, Intact Neurological: No New Focal Deficit, Other (generalized weakness) Psy/Mental Status: Alert, Normal Affect, Normal Mood - Problem List & Annotations (1) Afib SNOMED Code(s): 23383701 Code(s): I48.91 - UNSPECIFIED ATRIAL FIBRILLATION Status: Acute Priority : High Current Visit: No Qualifiers: Atrial fibrillation type: paroxysmal Annotation/Comment:: (2) HTN, Benign hypertension SNOMED Code(s): 43177644 Code(s): I10 - ESSENTIAL (PRIMARY) HYPERTENSION Status: Acute Priority: Medium Current Visit: No (3) Hyponatremia SNOMED Code(s): 63831458 Code(s): E87.1 - HYPO-OSMOLALITY AND HYPONATREMIA Status: Acute Current Visit: No (4) Mixed anxiety depressive disorder SNOMED Code(s): 622741207 Code(s): F41.8 - OTHER SPECIFIED ANXIETY DISORDERS Status: Acute Priority : Low Current Visit: No (5) Rheumatoid arthritis SNOMED Code(s): 88877603 Code(s): M06.9 - RHEUMATOID ARTHRITIS, UNSPECIFIED Status: Acute Current Visit: No Qualifiers: (6) Weakness SNOMED Code(s): 93369764 Code(s): R53.1 - WEAKNESS Status: Acute Priority: High Current Visit: No (7) COPD (chronic obstructive pulmonary disease) SNOMED Code(s): 23453062 Code(s): J44.9 - CHRONIC OBSTRUCTIVE PULMONARY DISEASE, UNSPECIFIED Status : Chronic Priority: Medium Current Visit: No Qualifiers: COPD type: chronic bronchitis Chronic bronchitis type: simple Qualified Code(s): J41.0 - Simple chronic bronchitis (8) Hypertension SNOMED Code(s): 06920235 Code(s): I10 - ESSENTIAL (PRIMARY) HYPERTENSION Status: Chronic Priority : Low Current Visit: No (9) Peptic reflux disease SNOMED Code(s): 161147917 Code(s): K21.9 - GASTRO-ESOPHAGEAL REFLUX DISEASE WITHOUT ESOPHAGITIS Status: Chronic Priority: Low Current Visit: No - Problem List Review Problem List Initiated/Reviewed/Updated: Yes - My Orders Last 24 Hours: My Active Orders 05/20/19 20:00 Metoprolol Tartrate [Lopressor] 25 mg PO Q12HR 05/21/19 05:11 CBC WITH AUTO DIFF [HEME] Routine CMP [COMPREHENSIVE METABOLIC PN,CMP] [CHEM] Routine CRP [C-REACTIVE PROTEIN] [CHEM] Routine SEDIMENTATION RATE AUTO [HEME] Routine - Plan Plan:: 05/16/19 late entry Sheets Kelly HERRERA Recent hospitalization for mycoplasma pneumoniae, then home then back to ER for atrial fibrillation. She converted with medical therapy. Now stable for transfer into swing bed due to generalized weakness and need for PT-OT. She continues to have significant chronic pain secondary to her rheumatoid arthritis and significant kypho-scoliosis. 05/17/19 Dane Mendoza MD Still pain in her back and in her hands. No palpitations. Still vivid dreaming at night. Discussed medications and adjustments. 05/20/19 Dane Mendoza MD Had severe hallucinations, vivid dreams, panic attack, confusion. Marinol and mirtazipine stopped. Mentally clearer today. No bad dreams last night. But very weak and arthritis pains some improvement but still significant pains in her hands, wrists, and back, hips knees. She feels palpitations today. Auscultation does reveal irregular irregular rhythm consistent with atrial fibrillation. She wants no intervention, no treatment. I will change medications slightly. She continues to work with PT-OT. Did discuss parafin wax treatments to hands and she is in agreement. Son Aime thinks she needs antidepressant. Idania does not want to try a new antidepressant at this time. ESR continues to be elevated consistent with acute arthritis flare.
[2019-05-21] MEDS: Acetaminophen/HYDROcodone 325-5 MG Tab PO PRN (01:24)
[2019-05-21 07:51] LABS: CHLORIDE,CL 102 mmol/L (98-107); SODIUM,NA 139 mmol/L (136-145)
[2019-05-21] MEDS: Timolol Maleate 0.5% Ophth Soln 5 ML Bottle EYEBOTH SCH ×2 (08:10→17:15)
[2019-05-21] MEDS: Brimonidine 0.2% Ophth Soln 5 ML Bottle EYEBOTH SCH ×2 (08:10→17:15)
[2019-05-21] MEDS: Fluticasone Propionate Nasal Spray 16 GM Bottle NASBOTH SCH (08:10)
[2019-05-21] MEDS: Hydrochlorothiazide/Triamterene 50-75 MG Tab PO SCH (08:12)
[2019-05-21] MEDS: Metoprolol Tartrate 25 MG Tab PO SCH ×2 (08:13→21:17)
[2019-05-21] MEDS: Diltiazem 120 MG Cap.CD PO SCH (08:14)
[2019-05-21] MEDS: Acetaminophen/HYDROcodone 325-5 MG Tab PO SCH ×4 (08:15→21:16)
[2019-05-21] MEDS: Docusate Sodium 100 MG Cap PO SCH (17:14)
[2019-05-21] MEDS: Ondansetron 4 MG Tab.DIS PO PRN (21:16)
[2019-05-22] MEDS: Acetaminophen/HYDROcodone 325-5 MG Tab PO PRN (04:27)
[2019-05-22] MEDS: Hydrochlorothiazide/Triamterene 50-75 MG Tab PO SCH (07:53)
[2019-05-22] MEDS: Timolol Maleate 0.5% Ophth Soln 5 ML Bottle EYEBOTH SCH ×2 (07:54→17:18)
[2019-05-22] MEDS: Brimonidine 0.2% Ophth Soln 5 ML Bottle EYEBOTH SCH ×2 (07:54→17:17)
[2019-05-22] MEDS: Fluticasone Propionate Nasal Spray 16 GM Bottle NASBOTH SCH (07:55)
[2019-05-22] MEDS: Acetaminophen/HYDROcodone 325-5 MG Tab PO SCH ×4 (07:55→20:25)
[2019-05-22] MEDS: Metoprolol Tartrate 25 MG Tab PO SCH ×2 (07:56→20:25)
[2019-05-22] MEDS: Diltiazem 120 MG Cap.CD PO SCH (07:59)
[2019-05-22] MEDS: Folic Acid 1 MG Tab PO SCH (08:05)
[2019-05-22] MEDS: Docusate Sodium 100 MG Cap PO SCH (17:18)
[2019-05-22] MEDS: Ondansetron 4 MG Tab.DIS PO PRN (17:26)
[2019-05-23] MEDS: Acetaminophen/HYDROcodone 325-5 MG Tab PO PRN (02:53)
[2019-05-23] MEDS: Timolol Maleate 0.5% Ophth Soln 5 ML Bottle EYEBOTH SCH ×2 (07:22→17:49)
[2019-05-23] MEDS: Fluticasone Propionate Nasal Spray 16 GM Bottle NASBOTH SCH (07:32)
[2019-05-23] MEDS: Brimonidine 0.2% Ophth Soln 5 ML Bottle EYEBOTH SCH ×2 (07:32→17:46)
[2019-05-23] MEDS: Ondansetron 4 MG Tab.DIS PO PRN (07:34)
[2019-05-23] MEDS: Acetaminophen/HYDROcodone 325-5 MG Tab PO SCH ×4 (07:34→20:35)
[2019-05-23] MEDS: Diltiazem 180 MG Cap.CD PO SCH (09:23)
[2019-05-23] MEDS: Diltiazem 120 MG Cap.CD PO SCH (09:23)
[2019-05-23] MEDS: Hydrochlorothiazide/Triamterene 50-75 MG Tab PO SCH (09:30)
[2019-05-23] MEDS ORDERED: Promethazine 25 MG Tab PO PRN (09:30)
[2019-05-23] MEDS: Metoprolol Tartrate 25 MG Tab PO SCH ×2 (09:31→20:36)
[2019-05-23] MEDS: Methotrexate 2.5 MG Tab PO SCH (14:23)
[2019-05-23 15:23] LABS: CHLORIDE,CL 98 mmol/L (98-107); SODIUM,NA 134 mmol/L (136-145)
[2019-05-23] MEDS ORDERED: Potassium Chloride 10 MEQ Tab.ER PO ONE (16:00)
[2019-05-23] MEDS: Potassium Chloride 10 MEQ Tab.ER PO SCH (17:47)
[2019-05-23] MEDS: Docusate Sodium 100 MG Cap PO SCH (17:47)
[2019-05-23] MEDS: hydrOXYzine HCl 50 MG/ML SDV IM PRN (17:49)
[2019-05-23] MEDS: Famotidine 20 MG Tab PO SCH (18:01)
[2019-05-23] MEDS ORDERED: Gabapentin 100 MG Cap PO SCH (20:00)
--- NOTE | 2019-05-23 23:25 | PCM.PN ---
- General Info Date of Service: 05/23/19 Functional Status: Reports: Other (significant weight loss) - Review of Systems General: Reports: Weakness, Malaise, Appetite (poor) HEENT: Reports: No Symptoms Pulmonary: Reports: No Symptoms Cardiovascular: Reports: Palpitations Gastrointestinal: Reports: Decreased Appetite, Nausea Genitourinary: Reports: No Symptoms Musculoskeletal: Reports: Hand Pain, Back Pain, Joint Pain Skin: Reports: No Symptoms Neurological: Reports: Weakness Psychiatric: Reports: No Symptoms - Patient Data Vitals - Most Recent: Last Vital Signs Temp 96.7 F 05/23/19 20:00 Pulse 72 05/23/19 20:36 Resp 16 05/23/19 20:00 BP 118/65 05/23/19 20:36 Pulse Ox 96 05/23/19 20:00 Weight - Most Recent: 188 lb 12.8 oz I&O - Last 24 Hours: Intake & Output 05/23/19 05/23/19 05/24/19 14:59 22:59 06:59 Intake Total 150 120 Balance 150 120 Lab Results Last 24 Hours: Laboratory Results - last 24 hr 05/23/19 05/23/19 05/23/19 Range/Units 15:00 15:00 20:44 WBC 9.3 (4.0-10.2) K/uL RBC 3.96 (3.77-5.09) M/uL Hgb 13.2 (11.7-15.5) g/dL Hct 38.7 (34.0-46.0) % MCV 97.7 (84.0-98.0) fL MCH 33.3 (28.2-33.3) pg MCHC 34.1 (31.7-36.0) g/dL RDW 12.9 (11.2-14.1) % Plt Count 223 (150-350) K/uL Neut % (Auto) 46.4 (45.0-80.0) % Lymph % (Auto) 34.2 (10.0-50.0) % [place] % (Auto) 17.4 H (2.0-14.0) % Eos % (Auto) 0.6 (0.0-5.0) % Baso % (Auto) 1.4 (0.0-2.0) % Neut # (Auto) 4.30 (1.40-7.00) K/uL Lymph # (Auto) 3.17 (0.50-3.50) K/uL [place] # (Auto) 1.61 H (0.00-1.00) K/uL Eos # (Auto) 0.06 (0.00-0.50) K/uL Baso # (Auto) 0.13 (0.00-0.20) K/uL Sodium 134 L (136-145) mmol/L Potassium 3.3 L (3.5-5.1) mmol/L Chloride 98 (98-107) mmol/L Carbon Dioxide 24.5 (21.0-32.0) mmol/L BUN 39 H (7-18) mg/dL Creatinine 1.27 H (0.51-1.17) mg/dL Est Cr Clr Drug Dosing 23.26 mL/min Estimated GFR (MDRD) 40 mL/min Glucose 137 H (74-106) mg/dL Calcium 8.6 (8.5-10.1) mg/dL Total Bilirubin 0.8 (0.2-1.0) mg/dL AST 27 (15-37) U/L ALT 49 (12-78) U/L Alkaline Phosphatase 54 (46-116) IU/L Troponin I 0.000 (0.000-0.056) ng/mL C-Reactive Protein < 0.1 (<=0.9) mg/dL Total Protein 6.5 (6.4-8.2) g/dL Albumin 3.0 L (3.4-5.0) g/dL Specimen Type Urinblad Urine Color Green Urine Appearance Slightly cloudy Urine pH 5.0 (5.0-9.0) Ur Specific [place] 1.020 (1.005-1.030) Urine Protein Negative (NEGATIVE) mg/dL Urine Glucose (UA) Negative (NEGATIVE) mg/dL Urine Ketones Trace H (NEGATIVE) mg/dL Urine Occult Blood Trace-intact H (NEGATIVE) Urine Nitrite Negative (NEGATIVE) Urine Bilirubin Moderate H (NEGATIVE) Urine Urobilinogen 0.2 (0.2-1.0) E.U./dL Ur Leukocyte Esterase Negative (NEGATIVE) Urine RBC 5-10 H /HPF Urine WBC 0-5 /HPF Ur Epithelial Cells Moderate H /LPF Amorphous Sediment Moderate H (0/HPF) /HPF Urine Bacteria Few (NONE TO FEW) /HPF Med Orders - Current: Current Medications Hydrocodone Bitart/Acetaminophen (Portal 325-5 Mg) 1 - 2 tab PO QID@08,12,18, [facility] Last Admin: 05/23/19 20:35 Dose: 1 tab Hydrocodone Bitart/Acetaminophen (Portal 325-5 Mg) 1 tab PO Q3H PRN PRN Reason: Pain Last Admin: 05/23/19 02:53 Dose: 1 tab Albuterol/Ipratropium (Duoneb 3.0-0.5 Mg/3 Ml) 3 ml INH Q4H PRN PRN Reason: Shortness of Breath Brimonidine Tartrate (Alphagan 0.2% Ophth Soln) 0 ml EYEBOTH BID [facility] Last Admin: 05/23/19 17:46 Dose: 1 drop Diltiazem HCl (Cardizem Cd) 120 mg PO DAILY [facility] Last Admin: 05/23/19 09:23 Dose: Not Given Diltiazem HCl (Cardizem Cd) 180 mg PO DAILY [facility] Last Admin: 05/23/19 09:23 Dose: Not Given Docusate Sodium (Colace) 100 mg PO QPM [facility] Last Admin: 05/23/19 17:47 Dose: 100 mg Famotidine (Pepcid) 20 mg PO BID [facility] Last Admin: 05/23/19 18:01 Dose: 20 mg Fluticasone Propionate (Flonase) 0 gm NASBOTH DAILY [facility] Last Admin: 05/23/19 07:32 Dose: 1 spray Folic Acid (Folic Acid) 1 mg PO SuMoTuWeThSa@0800 [facility] Last Admin: 05/22/19 08:05 Dose: 1 mg Guaifenesin (Mucinex) 600 mg PO DAILY PRN PRN Reason: Cough Last Admin: 05/21/19 08:11 Dose: 600 mg Hydroxyzine HCl (Vistaril) 25 mg IM Q4H PRN PRN Reason: Nausea/Vomiting Last Admin: 05/23/19 17:49 Dose: 25 mg Metoprolol Tartrate (Lopressor) 25 mg PO Q12HR [facility] Last Admin: 05/23/19 20:36 Dose: 25 mg Potassium Chloride (Klor-Con 10) 10 meq PO TID [facility] Last Admin: 05/23/19 17:47 Dose: 10 meq Promethazine HCl (Phenergan) 25 mg PO Q4H PRN PRN Reason: Nausea/Vomiting Last Admin: 05/23/19 11:06 Dose: 25 mg Promethazine HCl (Phenergan) 25 mg PO TIDAC [facility] Timolol Maleate (Timoptic 0.5% Ophth Soln) 0 ml EYEBOTH BID [facility] Last Admin: 05/23/19 17:49 Dose: 1 drop Discontinued Medications Atenolol (Tenormin) 25 mg PO DAILY [facility] Last Admin: 05/20/19 09:01 Dose: 25 mg Diltiazem HCl (Cardizem Cd) 240 mg PO DAILY [facility] Last Admin: 05/22/19 07:59 Dose: 240 mg Dronabinol (Marinol) 2.5 mg PO DAILY@1800 [facility] Last Admin: 05/17/19 17:21 Dose: 2.5 mg Famotidine (Pepcid) 20 mg PO BEDTIME [facility] Last Admin: 05/18/19 20:09 Dose: 20 mg Gabapentin (Neurontin) 100 mg PO BEDTIME [facility] Methotrexate (Methotrexate) 7.5 mg PO Q7D [facility] Last Admin: 05/23/19 14:23 Dose: 7.5 mg Mirtazapine (Remeron) 7.5 mg PO BEDTIME [facility] Last Admin: 05/16/19 20:09 Dose: 7.5 mg Mirtazapine (Remeron) 15 mg PO BEDTIME [facility] Last Admin: 05/17/19 20:01 Dose: 15 mg Ondansetron HCl (Zofran Odt) 4 mg PO Q6H PRN PRN Reason: Nausea/Vomiting Last Admin: 05/23/19 07:34 Dose: 4 mg Potassium Chloride (Klor-Con 10) 10 meq PO ONETIME ONE Stop: 05/23/19 16:01 Last Admin: 05/23/19 17:47 Dose: 10 meq Triamterene/HCTZ (Maxzide 50-75 Mg) 0.5 each PO DAILY [facility] Last Admin: 05/23/19 09:30 Dose: 0.5 each - Exam Quality Assessment: DVT Prophylaxis (contraindicated due to Hx GI bleed) General: Alert, Cooperative HEENT: EOMI Neck: Trachea Midline, No JVD Lungs: Clear to Auscultation, Normal Respiratory Effort Cardiovascular: Irregular Rhythm, Tachycardia (earlier today but rate 80 at the time of her exam) GI/Abdominal Exam: Soft, Non-Tender, No Distention (Female) Exam: Deferred Back Exam: Other (kyphoscoliosis) Extremities: Non-Tender Skin: Warm, Dry, Intact Neurological: No New Focal Deficit, Other (generalized weakness) Psy/Mental Status: Alert, Other (just doesn't feel good and is so weak) - Problem List & Annotations (1) Afib SNOMED Code(s): 36921965 Code(s): I48.91 - UNSPECIFIED ATRIAL FIBRILLATION Status: Acute Priority : High Current Visit: No Qualifiers: Atrial fibrillation type: paroxysmal Annotation/Comment:: (2) HTN, Benign hypertension SNOMED Code(s): 39188557 Code(s): I10 - ESSENTIAL (PRIMARY) HYPERTENSION Status: Acute Priority: Medium Current Visit: No (3) Hyponatremia SNOMED Code(s): 51561566 Code(s): E87.1 - HYPO-OSMOLALITY AND HYPONATREMIA Status: Acute Current Visit: No (4) Mixed anxiety depressive disorder SNOMED Code(s): 218537520 Code(s): F41.8 - OTHER SPECIFIED ANXIETY DISORDERS Status: Acute Priority : Low Current Visit: No (5) Rheumatoid arthritis SNOMED Code(s): 55669071 Code(s): M06.9 - RHEUMATOID ARTHRITIS, UNSPECIFIED Status: Acute Current Visit: No Qualifiers: (6) Weakness SNOMED Code(s): 80725161 Code(s): R53.1 - WEAKNESS Status: Acute Priority: High Current Visit: No (7) COPD (chronic obstructive pulmonary disease) SNOMED Code(s): 82180654 Code(s): J44.9 - CHRONIC OBSTRUCTIVE PULMONARY DISEASE, UNSPECIFIED Status : Chronic Priority: Medium Current Visit: No Qualifiers: COPD type: chronic bronchitis Chronic bronchitis type: simple Qualified Code(s): J41.0 - Simple chronic bronchitis (8) Hypertension SNOMED Code(s): 39729861 Code(s): I10 - ESSENTIAL (PRIMARY) HYPERTENSION Status: Chronic Priority : Low Current Visit: No (9) Peptic reflux disease SNOMED Code(s): 271501460 Code(s): K21.9 - GASTRO-ESOPHAGEAL REFLUX DISEASE WITHOUT ESOPHAGITIS Status: Chronic Priority: Low Current Visit: No - Problem List Review Problem List Initiated/Reviewed/Updated: Yes - My Orders Last 24 Hours: My Active Orders 05/23/19 08:00 Diltiazem [Cardizem CD] 120 mg PO DAILY Diltiazem [Cardizem CD] 180 mg PO DAILY 05/23/19 16:00 hydrOXYzine HCl [Vistaril] 25 mg IM Q4H PRN 05/23/19 18:00 Famotidine [Pepcid] 20 mg PO BID Potassium Chloride [Klor-Con 10] 10 meq PO TID 05/24/19 07:00 Promethazine [Phenergan] 25 mg PO TIDAC - Plan Plan:: 05/16/19 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 She converted with medical therapy. Now stable for transfer into swing bed due to generalized weakness and need for PT-OT. She continues to have significant chronic pain secondary to her rheumatoid arthritis and significant kypho-scoliosis. 05/17/19 Dane Mendoza MD Still pain in her back and in her hands. No palpitations. Still vivid dreaming at night. Discussed medications and adjustments. 05/20/19 Dane Mendoza MD Had severe hallucinations, vivid dreams, panic attack, confusion. Marinol and mirtazipine stopped. Mentally clearer today. No bad dreams last night. But very weak and arthritis pains some improvement but still significant pains in her hands, wrists, and back, hips knees. She feels palpitations today. Auscultation does reveal irregular irregular rhythm consistent with atrial fibrillation. She wants no intervention, no treatment. I will change medications slightly. She continues to work with PT-OT. Did discuss parafin wax treatments to hands and she is in agreement. Son Aime thinks she needs antidepressant. Idania does not want to try a new antidepressant at this time. ESR continues to be elevated consistent with acute arthritis flare. 05/23/19 Dane Mendoza MD Still with extreme weakness, very poor appetite. She is back in atrial fibrillation. She does not want any further work-up for the atrial fibrillation and she does not want anticoagulation due to history of significant GI bleed. Nausea and unable to eat much. Significant weight loss this past week. She did not want to try any new medications for pain or depression. She is wondering why she had so many tests today. Discussed results with her and sons x2. She wants methotrexate stopped. Restart pepcid. Replace potassium.
[2019-05-24] MEDS: Acetaminophen/HYDROcodone 325-5 MG Tab PO SCH ×4 (07:23→20:27)
[2019-05-24] MEDS: Potassium Chloride 10 MEQ Tab.ER PO SCH ×3 (07:24→17:59)
[2019-05-24] MEDS: Promethazine 25 MG Tab PO SCH ×4 (07:24→17:32)
[2019-05-24] MEDS: Famotidine 20 MG Tab PO SCH ×2 (07:25→20:27)
[2019-05-24] MEDS: Folic Acid 1 MG Tab PO SCH (07:25)
[2019-05-24] MEDS: Metoprolol Tartrate 25 MG Tab PO SCH ×2 (07:26→20:27)
[2019-05-24] MEDS: Fluticasone Propionate Nasal Spray 16 GM Bottle NASBOTH SCH (07:26)
[2019-05-24] MEDS: Diltiazem 180 MG Cap.CD PO SCH (07:26)
[2019-05-24] MEDS: Diltiazem 120 MG Cap.CD PO SCH (07:26)
[2019-05-24] MEDS: Timolol Maleate 0.5% Ophth Soln 5 ML Bottle EYEBOTH SCH ×2 (07:34→17:26)
[2019-05-24] MEDS: Brimonidine 0.2% Ophth Soln 5 ML Bottle EYEBOTH SCH ×2 (07:34→17:26)
--- NOTE | 2019-05-24 11:08 | PCM.SN ---
- Free Text/Narrative Note: 05-24-19 Inga Day PA-C Famotidine 20 mg changed to QHS only due to Pharmacy recommendations. Will receive the first QHS dose tonight.
[2019-05-24] MEDS: Docusate Sodium 100 MG Cap PO SCH (17:27)
[2019-05-25] MEDS: Acetaminophen/HYDROcodone 325-5 MG Tab PO PRN (05:35)
[2019-05-25] MEDS: Promethazine 25 MG Tab PO SCH ×2 (07:32→12:36)
[2019-05-25] MEDS: Diltiazem 120 MG Cap.CD PO SCH (07:32)
[2019-05-25] MEDS: Folic Acid 1 MG Tab PO SCH (07:32)
[2019-05-25] MEDS: Diltiazem 180 MG Cap.CD PO SCH (07:32)
[2019-05-25] MEDS: Potassium Chloride 10 MEQ Tab.ER PO SCH ×2 (07:33→12:35)
[2019-05-25] MEDS: Metoprolol Tartrate 25 MG Tab PO SCH ×2 (07:33→21:23)
[2019-05-25] MEDS: Timolol Maleate 0.5% Ophth Soln 5 ML Bottle EYEBOTH SCH ×2 (07:33→17:32)
[2019-05-25] MEDS: Fluticasone Propionate Nasal Spray 16 GM Bottle NASBOTH SCH (07:34)
[2019-05-25] MEDS: Brimonidine 0.2% Ophth Soln 5 ML Bottle EYEBOTH SCH ×2 (07:34→17:31)
[2019-05-25] MEDS: Acetaminophen/HYDROcodone 325-5 MG Tab PO SCH ×4 (09:03→22:53)
[2019-05-25] MEDS: Docusate Sodium 100 MG Cap PO SCH (17:31)
[2019-05-25] MEDS ORDERED: Digoxin 250 MCG Tab PO ONE (18:00)
[2019-05-25] MEDS: Famotidine 20 MG Tab PO SCH (21:23)
[2019-05-26] MEDS: Acetaminophen 325 MG Tab PO PRN ×2 (03:48→20:08)
[2019-05-26] MEDS: Acetaminophen/HYDROcodone 325-5 MG Tab PO SCH ×4 (08:39→20:09)
[2019-05-26] MEDS: Metoprolol Tartrate 25 MG Tab PO SCH ×2 (08:39→20:08)
[2019-05-26] MEDS: Fluticasone Propionate Nasal Spray 16 GM Bottle NASBOTH SCH (08:40)
[2019-05-26] MEDS: Brimonidine 0.2% Ophth Soln 5 ML Bottle EYEBOTH SCH ×2 (08:44→17:21)
[2019-05-26] MEDS: Timolol Maleate 0.5% Ophth Soln 5 ML Bottle EYEBOTH SCH ×2 (08:45→17:19)
[2019-05-26] MEDS: Docusate Sodium 100 MG Cap PO SCH (17:20)
[2019-05-26] MEDS: Famotidine 20 MG Tab PO SCH (20:08)
[2019-05-27] MEDS: Acetaminophen/HYDROcodone 325-5 MG Tab PO PRN (02:24)
[2019-05-27] MEDS: Acetaminophen/HYDROcodone 325-5 MG Tab PO SCH ×4 (08:04→20:34)
[2019-05-27] MEDS: Metoprolol Tartrate 25 MG Tab PO SCH ×2 (08:04→20:36)
[2019-05-27] MEDS: Brimonidine 0.2% Ophth Soln 5 ML Bottle EYEBOTH SCH ×2 (08:05→17:43)
[2019-05-27] MEDS: Timolol Maleate 0.5% Ophth Soln 5 ML Bottle EYEBOTH SCH ×2 (08:05→17:44)
[2019-05-27] MEDS: Fluticasone Propionate Nasal Spray 16 GM Bottle NASBOTH SCH (08:05)
[2019-05-27] MEDS: hydrOXYzine HCl 50 MG/ML SDV IM PRN (08:14)
[2019-05-27] MEDS: Diltiazem 120 MG Cap.CD PO SCH (11:49)
[2019-05-27] MEDS: Acetaminophen 325 MG Tab PO PRN ×2 (11:50→17:42)
[2019-05-27 12:49] LABS: CHLORIDE,CL 98 mmol/L (98-107); SODIUM,NA 134 mmol/L (136-145)
[2019-05-27] MEDS: Docusate Sodium 100 MG Cap PO SCH (17:42)
[2019-05-27] MEDS: Famotidine 20 MG Tab PO SCH (20:34)
[2019-05-28] MEDS: Acetaminophen 325 MG Tab PO PRN ×3 (00:03→11:36)
[2019-05-28] MEDS: Metoprolol Tartrate 25 MG Tab PO SCH (08:37)
[2019-05-28] MEDS: Acetaminophen/HYDROcodone 325-5 MG Tab PO SCH ×2 (08:38→11:37)
[2019-05-28] MEDS: Fluticasone Propionate Nasal Spray 16 GM Bottle NASBOTH SCH (08:40)
[2019-05-28] MEDS: Brimonidine 0.2% Ophth Soln 5 ML Bottle EYEBOTH SCH (08:40)
[2019-05-28] MEDS: Timolol Maleate 0.5% Ophth Soln 5 ML Bottle EYEBOTH SCH (08:41)
[2019-05-28] MEDS: Diltiazem 120 MG Cap.CD PO SCH (11:34)
[2019-05-28 11:37] VITALS: BP 110/80; PULSE 92
--- NOTE | 2019-06-04 14:37 | PCM.DCSUM1 ---
Discharge Summary - Hospital Course Diagnosis: Stroke: No - Discharge Data Discharge Date: 05/28/19 Discharge Disposition: DC/Tfer to SNF 03 Condition: Fair - Discharge Diagnosis/Problem(s) (1) Afib SNOMED Code(s): 37819020 ICD Code: I48.91 - UNSPECIFIED ATRIAL FIBRILLATION Status: Acute Priority : High Problem Details: Qualifiers: Atrial fibrillation type: paroxysmal (2) HTN, Benign hypertension SNOMED Code(s): 75761395 ICD Code: I10 - ESSENTIAL (PRIMARY) HYPERTENSION Status: Acute Priority: Medium (3) Hyponatremia SNOMED Code(s): 67671839 ICD Code: E87.1 - HYPO-OSMOLALITY AND HYPONATREMIA Status: Acute (4) Mixed anxiety depressive disorder SNOMED Code(s): 206018626 ICD Code: F41.8 - OTHER SPECIFIED ANXIETY DISORDERS Status: Acute Priority: Low (5) Rheumatoid arthritis SNOMED Code(s): 82067141 ICD Code: M06.9 - RHEUMATOID ARTHRITIS, UNSPECIFIED Status: Acute Qualifiers: (6) Weakness SNOMED Code(s): 21139758 ICD Code: R53.1 - WEAKNESS Status: Acute Priority: High (7) COPD (chronic obstructive pulmonary disease) SNOMED Code(s): 05773446 ICD Code: J44.9 - CHRONIC OBSTRUCTIVE PULMONARY DISEASE, UNSPECIFIED Status : Chronic Priority: Medium Qualifiers: COPD type: chronic bronchitis Chronic bronchitis type: simple Qualified Code(s): J41.0 - Simple chronic bronchitis (8) Hypertension SNOMED Code(s): 45265348 ICD Code: I10 - ESSENTIAL (PRIMARY) HYPERTENSION Status: Chronic Priority : Low (9) Peptic reflux disease SNOMED Code(s): 403771750 ICD Code: K21.9 - GASTRO-ESOPHAGEAL REFLUX DISEASE WITHOUT ESOPHAGITIS Status: Chronic Priority: Low - Patient Summary/Data Consults: Consultations 05/16/19 14:00 OT Evaluation and Treatment [CONS] Routine PT Evaluation and Treatment [CONS] Routine 05/19/19 08:00 Consult to Case Management/Clinical Geneticist [CONS] Routine 05/23/19 14:54 Consult to Speech Language Pathology [ALTERATION SPECIALIST Evaluation and Treatment] [CONS] Routine - Patient Instructions Diet: Regular Diet as Tolerated Activity: As Tolerated Showering/Bathing: May Shower Other/Special Instructions: PT-OT-ST consult evaluate and treat - Discharge Plan *PRESCRIPTION DRUG MONITORING PROGRAM REVIEWED*: Not Applicable *COPY OF PRESCRIPTION DRUG MONITORING REPORT IN PATIENT MASHA: Not Applicable Prescriptions/Med Rec: Metoprolol Tartrate [Lopressor] 25 mg PO Q12HR #60 tablet Acetaminophen [Tylenol Arthritis] 650 mg PO BID@1100,1800 #100 tablet.er Acetaminophen/HYDROcodone [Voss 325-5 MG] 1 tab PO Q3H PRN #30 tablet PRN Reason: Pain Diltiazem [Cardizem CD] 240 mg PO DAILY@1200 #180 cap.cd Hydrocodone/Acetaminophen [Voss 5-325 Tablet] 1 each PO TID@0800,1400,2100 #90 tablet hydrOXYzine HCl [hydrOXYzine] 25 mg IM Q4H PRN #1 vial PRN Reason: Nausea/Vomiting Promethazine [Phenergan] 25 mg PO Q4H PRN #30 tablet PRN Reason: Nausea/Vomiting Home Medications: Home Meds Diltiazem [Cardizem CD] 1 tab PO DAILY 11/05/14 [History] Brimonidine Tartrate/Timolol [Combigan 0.2%-0.5% Eye Drops] 1 drop EYEBOTH BID 04/29/19 [History] Cyanocobalamin (Vitamin B12) [Vitamin B12] 1,000 mcg IM Q30D 04/29/19 [History] Docusate Sodium [Colace] 100 mg PO QPM 04/29/19 [History] Ranitidine [Zantac] 150 mg PO BEDTIME 04/29/19 [History] Fluticasone Propionate [Flonase] 1 puff NASBOTH DAILY 05/11/19 [History] Acetaminophen [Tylenol Arthritis] 650 mg PO BID@1100,1800 #100 tablet.er [Rx] Acetaminophen [Tylenol] 650 mg PO Q4H PRN tablet 05/28/19 [Rx] Acetaminophen/HYDROcodone [Voss 325-5 MG] 1 tab PO Q3H PRN #30 tablet 05/28/19 [Rx] Albuterol/Ipratropium [DuoNeb 3.0-0.5 MG/3 ML] 3 ml INH Q4H PRN neb 05/28/19 [ Rx] Diltiazem [Cardizem CD] 240 mg PO DAILY@1200 #180 cap.cd 05/28/19 [Rx] Hydrocodone/Acetaminophen [Voss 5-325 Tablet] 1 each PO TID@0800,1400,2100 #90 tablet 05/28/19 [Rx] Metoprolol Tartrate [Lopressor] 25 mg PO Q12HR #60 tablet 05/28/19 [Rx] Promethazine [Phenergan] 25 mg PO Q4H PRN #30 tablet 05/28/19 [Rx] hydrOXYzine HCl [hydrOXYzine] 25 mg IM Q4H PRN #1 vial 05/28/19 [Rx] Oxygen Therapy Mode: Nasal Cannula Oxygen Flow Rate (L/min): 2 Maintain SpO2% greater than: 90 - Discharge Summary/Plan Comment DC Time >30 min.: No - Patient Data Vitals - Most Recent: Last Vital Signs Temp 97.5 F 05/28/19 08:00 Pulse 92 05/28/19 11:34 Resp 18 05/28/19 08:00 BP 110/80 05/28/19 11:34 Pulse Ox 97 05/28/19 08:00 Weight - Most Recent: 188 lb 12.8 oz Med Orders - Current: Current Medications Discontinued Medications Acetaminophen (Tylenol) 650 mg PO Q4H PRN PRN Reason: Pain/Fever Last Admin: 05/28/19 11:36 Dose: 650 mg Hydrocodone Bitart/Acetaminophen (Voss 325-5 Mg) 1 - 2 tab PO QID@,,, [facility] Last Admin: 05/26/19 12:43 Dose: 1 tab Hydrocodone Bitart/Acetaminophen (Voss 325-5 Mg) 1 tab PO Q3H PRN PRN Reason: Pain Last Admin: 05/27/19 02:24 Dose: 1 tab Hydrocodone Bitart/Acetaminophen (Voss 325-5 Mg) 1 tab PO QID@,,18,21 [facility] Last Admin: 05/28/19 11:37 Dose: Not Given Albuterol/Ipratropium (Duoneb 3.0-0.5 Mg/3 Ml) 3 ml INH Q4H PRN PRN Reason: Shortness of Breath Atenolol (Tenormin) 25 mg PO DAILY [facility] Last Admin: 05/20/19 09:01 Dose: 25 mg Brimonidine Tartrate (Alphagan 0.2% Ophth Soln) 0 ml EYEBOTH BID [facility] Last Admin: 05/28/19 08:40 Dose: 1 drop Digoxin (Lanoxin) 250 mcg PO ONETIME ONE Stop: 05/25/19 18:01 Last Admin: 05/25/19 17:31 Dose: 250 mcg Diltiazem HCl (Cardizem Cd) 240 mg PO DAILY [facility] Last Admin: 05/22/19 07:59 Dose: 240 mg Diltiazem HCl (Cardizem Cd) 120 mg PO DAILY [facility] Last Admin: 05/25/19 07:32 Dose: 120 mg Diltiazem HCl (Cardizem Cd) 180 mg PO DAILY [facility] Last Admin: 05/25/19 07:32 Dose: 180 mg Diltiazem HCl (Cardizem Cd) 240 mg PO DAILY@1200 [facility] Last Admin: 05/28/19 11:34 Dose: 240 mg Docusate Sodium (Colace) 100 mg PO QPM [facility] Last Admin: 05/27/19 17:42 Dose: 100 mg Dronabinol (Marinol) 2.5 mg PO DAILY@1800 [facility] Last Admin: 05/17/19 17:21 Dose: 2.5 mg Famotidine (Pepcid) 20 mg PO BEDTIME [facility] Last Admin: 05/18/19 20:09 Dose: 20 mg Famotidine (Pepcid) 20 mg PO BID [facility] Last Admin: 05/24/19 07:25 Dose: 20 mg Famotidine (Pepcid) 20 mg PO BEDTIME [facility] Last Admin: 05/27/19 20:34 Dose: 20 mg Fluticasone Propionate (Flonase) 0 gm NASBOTH DAILY [facility] Last Admin: 05/28/19 08:40 Dose: 1 spray Folic Acid (Folic Acid) 1 mg PO SuMoTuWeThSa@0800 [facility] Last Admin: 05/25/19 07:32 Dose: 1 mg Gabapentin (Neurontin) 100 mg PO BEDTIME [facility] Guaifenesin (Mucinex) 600 mg PO DAILY PRN PRN Reason: Cough Last Admin: 05/21/19 08:11 Dose: 600 mg Hydroxyzine HCl (Vistaril) 25 mg IM Q4H PRN PRN Reason: Nausea/Vomiting Last Admin: 05/27/19 08:14 Dose: 25 mg Methotrexate (Methotrexate) 7.5 mg PO Q7D [facility] Last Admin: 05/23/19 14:23 Dose: 7.5 mg Metoprolol Tartrate (Lopressor) 25 mg PO Q12HR [facility] Last Admin: 05/28/19 08:37 Dose: 25 mg Mirtazapine (Remeron) 7.5 mg PO BEDTIME [facility] Last Admin: 05/16/19 20:09 Dose: 7.5 mg Mirtazapine (Remeron) 15 mg PO BEDTIME [facility] Last Admin: 05/17/19 20:01 Dose: 15 mg Ondansetron HCl (Zofran Odt) 4 mg PO Q6H PRN PRN Reason: Nausea/Vomiting Last Admin: 05/23/19 07:34 Dose: 4 mg Potassium Chloride (Klor-Con 10) 10 meq PO TID [facility] Last Admin: 05/25/19 12:35 Dose: 10 meq Potassium Chloride (Klor-Con 10) 10 meq PO ONETIME ONE Stop: 05/23/19 16:01 Last Admin: 05/23/19 17:47 Dose: 10 meq Promethazine HCl (Phenergan) 25 mg PO Q4H PRN PRN Reason: Nausea/Vomiting Last Admin: 05/23/19 11:06 Dose: 25 mg Promethazine HCl (Phenergan) 25 mg PO TIDAC [facility] Last Admin: 05/25/19 12:36 Dose: 25 mg Timolol Maleate (Timoptic 0.5% Ophth Soln) 0 ml EYEBOTH BID [facility] Last Admin: 05/28/19 08:41 Dose: 1 drop Triamterene/HCTZ (Maxzide 50-75 Mg) 0.5 each PO DAILY [facility] Last Admin: 05/23/19 09:30 Dose: 0.5 each
== END 2019-05-28 15:35 | DRG 948 ==
LOC: LL.MS 14:32
PROVIDERS: ADMIT Family Medicine; ATTEND Family Medicine
DX: R53.1 Weakness (principal); E87.1 Hypo-osmolality and hyponatremia; R44.3 Hallucinations, unspecified; G89.29 Other chronic pain; M06.9 Rheumatoid arthritis, unspecified; M41.9 Scoliosis, unspecified; J44.9 Chronic obstructive pulmonary disease, unspecified; K21.9 Gastro-esophageal reflux disease without esophagitis; I10 Essential (primary) hypertension; I48.91 Unspecified atrial fibrillation; F41.8 Other specified anxiety disorders; Z79.899 Other long term (current) drug therapy; Z87.01 Personal history of pneumonia (recurrent); F41.0 Panic disorder [episodic paroxysmal anxiety]; R41.0 Disorientation, unspecified
CPT/HCPCS: 36415; 71046; 74019; 80048; 80053; 80162; 81001; 84484; 85025; 85652; 86140; 92526-GN; 92610-GN; 93005; 97110-GO; 97110-GP; 97161-GP; 97165-GO; 97530-GO; 97530-GP; 97535-GO; A9270-GY; J3410; J8610; Q0167